=== PATIENT | male | born 1935 | race Caucasian/White ===

== ENCOUNTER 2016-08-15 04:05 | Inpatient (IN) | payer MEDICARE ==
[2016-08-15] MEDS ORDERED: Labetalol IV* 5 MG/ML 20 ML VIAL ONE (04:26)
[2016-08-15] MEDS ORDERED: Labetalol IV* 5 MG/ML 20 ML VIAL IV PUSH ONE (04:29)
[2016-08-15 04:30] LABS: Hematocrit 37 % (42-52); Hemoglobin 12.2 g/dl (14.0-18.0); Mean Corpuscular HGB Conc 33 g/dl (31-36); Mean Corpuscular Hemoglobin 27 pg (27-31); Mean Corpuscular Volume 82 fL (80-94); Mean Platelet Volume 7 um3 (7.4-10.4); Red Blood Count 4.45 10^6/ul (4.0-5.4); Red Cell Distribution Width 16 % (10.5-15); White Blood Count 14.5 10^3/ul (3.5-10.8)
[2016-08-15] MEDS ORDERED: Phytonadione INJ (Adult)* 10 MG/ML 1 ML AMP IV ONE (04:42)
[2016-08-15 04:43] LABS: Albumin 3.3 g/dL (3.2-5.2); BUN/Creatinine Ratio 13.8 (8-20); Calcium 9.4 mg/dL (8.6-10.3); EGFR Non-African American 44.3 (>60); Globulin 3.8 g/dL (2-4); HDL Cholesterol 31.2 mg/dL; Potassium 3.6 mmol/L (3.5-5.0); Total Bilirubin 0.5 mg/dL (0.2-1.0); Total Protein 7.1 g/dL (6.4-8.9)
--- NOTE | 2016-08-15 04:46 | ED ---
Jeff Moe Benjamin, scribed for Ron Keith MD on 08/15/16 at 0442 . Neurological HPI - HPI Summary HPI Summary: 81yo male BIB EMS for a stroke attack. Per , pt went to bed normal, but woke up middle of the night rattling, vomiting, and thrashing. called EMS and pt was brought in unresponsive. LEVEL 5 CAVEAT. - History of Current Complaint Time Seen by Provider: 08/15/16 04:07 Hx Obtained From: Family/Traffic Engineer, EMS Hx From Patient Unobtainable Due To: Other - LEVEL 5 CAVEAT Onset/Duration: Sudden Onset, Started hours ago, Still Present Timing: Constant Onset Severity: Severe Current Severity: Severe - Additional Pertinent History Primary Care Physician: PEDRO - Allergy/Home Medications Allergies/Adverse Reactions: Allergies Allergy/AdvReac Type Severity Reaction Status Date / Time Nitrofurantoin Allergy Unknown Verified 08/15/16 05:26 Reaction Details Penicillins Allergy Hives Verified 08/15/16 05:26 Sulfa Antibiotics Allergy Rash And Verified 08/15/16 05:26 Itching PMH/Surg Hx/FS Hx/Imm Hx Endocrine/Hematology History: Reports: Hx Anticoagulant Therapy - warfarin, Hx Diabetes Cardiovascular History: Reports: Hx Coronary Artery Disease, Hx Hypercholesterolemia, Hx Hypertension, Other Cardiovascular Problems/Disorders - "leaky valve" Denies: Hx Pacemaker/ICD Respiratory History: Reports: Hx Asthma, Hx Chronic Obstructive Pulmonary Disease (COPD), Hx Sleep Apnea - Uses C-Pap at home GI History: Reports: Hx Diverticulosis, Other GI Disorders - elective colectomy with resection History: Reports: Hx Benign Prostatic Hyperplasia, Hx Chronic Renal Failure, Other Problems/Disorders - chronic UTI, penile stricture Musculoskeletal History: Reports: Hx Arthritis Sensory History: Reports: Hx Contacts or Glasses Denies: Hx Hearing Aid Opthamlomology History: Reports: Hx Contacts or Glasses Neurological History: Reports: Other Neuro Impairments/Disorders - Tremors, neuropathy Psychiatric History: Reports: Hx Depression Denies: Hx Panic Disorder - Surgical History Surgery Procedure, Year, and Place: cataract removal 2011, open lapararomy resection sigmoid/descending colon 2011, Hx Anesthesia Reactions: No - Immunization History Date of Tetanus Vaccine: up to date Date of Influenza Vaccine: 2014 Infectious Disease History: Denies: Traveled Outside the [place] in Last 30 Days - Social History Alcohol Use: None Hx Substance Use: No Substance Use Type: Reports: None Smoking Status (MU): Never Smoked Tobacco Review of Systems - ROS Summary Review of Systems Summary: level 5 caveat All Other Systems Reviewed And Are Negative: Yes Physical Exam Triage Information Reviewed: Yes Vital Signs On Initial Exam: Initial Vitals Pulse Ox 100 08/15/16 04:21 Vital Signs Reviewed: Yes Completion Of Physical Exam Limited Due To: Extremis Appearance: Positive: Ill-Appearing Skin: Positive: Warm Head/Face: Positive: Normal Head/Face Inspection Eyes: Positive: Other: - rt gaze ENT: Positive: Pharynx normal Respiratory/Lung Sounds: Positive: Breath Sounds Present Cardiovascular: Positive: RRR Abdomen Description: Positive: Soft Neurological: Positive: Focal Deficit @ - lt side, Unable to Assess Gait AVPU Assessment: Unconscious Diagnostics - Vital Signs Vital Signs Pulse Ox 08/15/16 04:21 100 - Laboratory Lab Results: Lab Results 08/15/16 08/15/16 08/15/16 Range/Units 04:10 04:10 04:10 INR (Anticoag Therapy) 2.77 H (0.89-1.11) APTT 52.2 H (26.0-36.3) seconds Sodium 129 L (133-145) mmol/L Potassium 3.6 (3.5-5.0) mmol/L Chloride 95 L (101-111) mmol/L Carbon Dioxide 25 (22-32) mmol/L Anion Gap 9 (2-11) mmol/L BUN 21 (6-24) mg/dL Creatinine 1.52 H (0.67-1.17) mg/dL Est GFR ( Amer) 57.0 (>60) Est GFR (Non-Af Amer) 44.3 (>60) BUN/Creatinine Ratio 13.8 (8-20) Glucose 216 H (70-100) mg/dL Lactic Acid 1.7 (0.5-2.0) mmol/L Calcium 9.4 (8.6-10.3) mg/dL Total Bilirubin 0.50 (0.2-1.0) mg/dL AST 16 (13-39) U/L ALT 10 (7-52) U/L Alkaline Phosphatase 117 H (34-104) U/L Troponin I Pending Total Protein 7.1 (6.4-8.9) g/dL Albumin 3.3 (3.2-5.2) g/dL Globulin 3.8 (2-4) g/dL Albumin/Globulin Ratio 0.9 L (1-3) Triglycerides 164 mg/dL Cholesterol 188 mg/dL LDL Cholesterol 124 mg/dL HDL Cholesterol 31.2 mg/dL Result Diagrams: 08/15/16 04:10 08/15/16 04:10 Lab Statement: Any lab studies that have been ordered have been reviewed, and results considered in the medical decision making process. - CT CT Brain CT Interpretation: Positive (See Comments) - hemorrhage CT Interpretation Completed By: Radiologist - EKG 0414. 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 Non-Paretic Hand: Neither Correctly Best Gaze (Only Horizontal Eye Movement): Partial Gaze Palsy Visual Field Testing: Bilateral Hemianopia Facial Paresis-Pt to Smile & Close Eyes or Grimace Symmetry: Partial Paralysis Motor Function - Right Arm: Drifts LT 10 seconds Motor Function - Left Arm: No Movement Motor Function - Right Leg: Drifts LT 10 seconds Motor Function - Left Leg: No Effort Against [place] Limb Ataxia-Must be out of Proportion to Weakness Present: Present in Two Limbs Sensory (Use Pinprick to Test Arms/Legs/Trunk/Face): Severe to Total Loss Best Language (Describe Picture, Name Items): Mute/Global Aphasia Dysarthria (Read Several Words): Unintelligible or Mute Extinction and Inattention: Profound Kalen-Inattention Total Score: 32 Course/Dx - Diagnoses Provider Diagnoses: Intracerebral bleed - Physician Notifications Discussed Care of Patient With: with Dr. Ventura (Neurosurgery) @[phone]. Audrey wants the pt admitted to ICU, he will come in to see the pt in the morning. Instructed by Provider To: Admit As Inpatient - Critical Care Time Critical Care Time: 75-104 min Discharge - Discharge Plan Condition: Critical Disposition: ADMITTED TO [facility] The documentation as recorded by the Jeff babb Benjamin accurately reflects the service I personally performed and the decisions made by me, Ron Keith MD.
[2016-08-15 04:53] LABS: Troponin I 0.04 ng/mL (<0.04)
[2016-08-15] MEDS ORDERED: Ondansetron INJ* 2 MG/ML VIAL ONE (05:28)
--- NOTE | 2016-08-15 05:38 | HP ---
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 He was last seen by his normal before bed only to awake around 0330 thrashing, vomiting, & confused. She called EMS and he was brought in where CT shows a 3.5cm R frontal intracranial hemorrhage. INR is 2.7. He is unable to swallow and has been given 10mg IV vitamin K and 2 units FFP ordered. Maurice Ventura MD neurosurgery has been consulted and will evaluate in the AM. I have had a anali discussion with his and 2 sons informing them that given his substantial co-morbidities, he is unlikely to survive this insult. If he would survive, he is unlikely to be able to return home (probably will require long-term NH care), may need a feeding tube, and cognition/ communication is uncertain. Given this information, his sons did not feel he would want aggressive measures such as CPR, cardioversion, or intubation and his agreed. PMedHx L CVA 09/2015 TIA CAD carotid stenosis AFIB on warfarin DM2 w/ polyneuropathy CKD stg 3 HTN HLD ELISABETH BPH urinary retention w/ indwelling downey which he recently self-DC'd spinal stenosis Allergies Nitrofurantoin Allergy (Verified 08/15/16 05:26) Unknown Reaction Details Penicillins Allergy (Verified 08/15/16 05:26) Hives Sulfa Antibiotics Allergy (Verified 08/15/16 05:26) Rash And Itching Ambulatory Orders Acetaminophen PED LIQ* [Tylenol PED LIQ UDC*] 160 mg PO Q8H PRN 01/23/15 Allopurinol TAB* [Zyloprim TAB*] 100 mg PO DAILY 01/23/15 Nystatin (Topical) [Nystatin] 100,000 unit TOPICAL TID PRN 01/23/15 zzInsulin GLARGINE(*) [zzLantus(*)] 30 unit SUBCUT BID 01/23/15 Albuterol HFA INHALER* [Ventolin HFA Inhaler*] 2 puff INH TID PRN 04/18/16 Aspirin EC Low Dose* [Ecotrin EC Low Dose*] 81 mg PO DAILY 04/18/16 Bumetanide TAB* [Bumex TAB*] 1 mg PO QAM 04/18/16 Cranberry (Vaccinium Macrocarp [Cranberry Concentrate] 500 mg PO DAILY 04/18/16 Docusate CAP* [Colace Cap*] 100 mg PO BID 04/18/16 FLUoxetine CAP* [Prozac CAP*] 20 mg PO DAILY 04/18/16 Ferrous Sulfate TAB* 325 mg PO DAILY WITH MEAL 04/18/16 Hydrocodone-Acetaminophen [Hydrocodone/Acetaminophen] 1 tab PO Q6HR PRN Insulin REGULAR(*) 0 - 35 units SUBCUT TID AC 04/18/16 Losartan TAB* [Cozaar TAB*] 50 mg PO DAILY 04/18/16 Oxybutynin Chloride [Oxybutynin Chloride ER] 10 mg PO BEDTIME 04/18/16 Polyethylene Glycol 3350* [Miralax*] 8.5 gm PO DAILY 04/18/16 Potassium Chloride [Potassium Chloride ER] 10 meq PO BID WITH MEALS 04/18/16 Ranitidine TAB (NF) [Zantac TAB (NF)] 75 mg PO BID 04/18/16 Warfarin TAB(*) [Coumadin TAB(*)] 5 mg PO EVERY OTHER DAY 04/18/16 Warfarin TAB(*) [Coumadin TAB(*)] 7.5 mg PO EVERY OTHER DAY 04/18/16 DOXYcycline CAP(*) [DOXYcycline 100MG CAP(*)] 100 mg PO DAILY cap 04/20/16 SocHx: no tobacco, alcohol, or recreational drugs; lives with his , has 5 children; DNR/I code status, MOLST filled out FamHx: positive for DM, HTN, HLD ROS: as above, otherwise reviewed and all were negative Constitutional: NAD, normally developed, obese white male vitals: Vital Signs Temp 37.4 C 08/15/16 04:05 Pulse 72 08/15/16 06:00 Resp 22 08/15/16 06:00 BP 153/105 08/15/16 06:00 Pulse Ox 100 08/15/16 06:00 Intake & Output 08/14/16 08/14/16 08/15/16 11:59 23:59 11:59 Intake Total 8 Balance 8 Weight 113.398 kg Intake: IV Fluids 8 HEENM: atraumatic; sclera/conjunctiva: non-icteric/moderately injected; hearing : clinically intact (said 'yes' when his said his name); oropharynx: clear , mucosa moist Neck: soft tissue: non-tender; thyroid: normal Pulmonary: R basal coarse crackle, good aeration, no accessory muscle use CV: IR/IR, normal S1S2, no carotid bruit, no jugular venous distention, 2+ B DP/ PT, no edema Abdominal: soft, non-distended, non-tender, no rebound/guarding/rigidity, normoactive bowel sounds, no hepatosplenomegaly or masses, no costovertebral angle tenderness Musculoskeletal: general: flaccid LUE; gait: currently unable to ambulate Integumental: normal appearance and texture Neurological cranial nerves II: unable to assess visual molina III/IV/: symmetric light reflex, rightward gaze w/ L neglect, PERRLA V: intact corneal reflex VII: facial symmetry, eye clench VIII: hearing clinically intact IX/X: unable to assess palatal motion, intact gag reflex, no dysarthria XI: unable to assess shoulder shrug XII: unable to assess tongue protrusion or voice articulation motor LUE: flaccid RUE: 4+/5 proximally, 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, & 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 strength LLE: 3+/5 proximally & distally RLE: 4/5 proximally & distally coordination finger/nose: unable to assess heal/guzman: unable to assess dysdiadochokinesia: unable to assess sensory crude touch: unable to assess pinprick: unable to assess proprioception: unable to assess Psychiatric orientation: oriented loosely to person only affect: flat, rightward gaze mood: acquiescent eye contact: absent content: absent memory: unable to assess responses: mildly agitated insight: poor to absent Testing: Lab Results 08/15/16 08/15/16 08/15/16 Range/Units 04:10 04:10 04:10 WBC 14.5 H (3.5-10.8) 10^3/ul RBC 4.45 (4.0-5.4) 10^6/ul Hgb 12.2 L (14.0-18.0) g/dl Hct 37 L (42-52) % MCV 82 (80-94) fL MCH 27 (27-31) pg MCHC 33 (31-36) g/dl RDW 16 H (10.5-15) % Plt Count 244 (150-450) 10^3/ul MPV 7 L (7.4-10.4) um3 Neut % (Auto) 85.6 H (38-83) % Lymph % (Auto) 8.2 L (25-47) % George % (Auto) 3.5 (1-9) % Eos % (Auto) 2.3 (0-6) % Baso % (Auto) 0.4 (0-2) % Absolute Neuts (auto) 12.4 H (1.5-7.7) 10^3/ul Absolute Lymphs (auto) 1.2 (1.0-4.8) 10^3/ul Absolute Monos (auto) 0.5 (0-0.8) 10^3/ul Absolute Eos (auto) 0.3 (0-0.6) 10^3/ul Absolute Basos (auto) 0.1 (0-0.2) 10^3/ul Absolute Nucleated RBC 0 10^3/ul Nucleated RBC % 0 INR (Anticoag Therapy) 2.77 H (0.89-1.11) APTT 52.2 H (26.0-36.3) seconds Sodium 129 L (133-145) mmol/L Potassium 3.6 (3.5-5.0) mmol/L Chloride 95 L (101-111) mmol/L Carbon Dioxide 25 (22-32) mmol/L Anion Gap 9 (2-11) mmol/L BUN 21 (6-24) mg/dL Creatinine 1.52 H (0.67-1.17) mg/dL Est GFR ( Amer) 57.0 (>60) Est GFR (Non-Af Amer) 44.3 (>60) BUN/Creatinine Ratio 13.8 (8-20) Glucose 216 H (70-100) mg/dL Lactic Acid (0.5-2.0) mmol/L Calcium 9.4 (8.6-10.3) mg/dL Total Bilirubin 0.50 (0.2-1.0) mg/dL AST 16 (13-39) U/L ALT 10 (7-52) U/L Alkaline Phosphatase 117 H (34-104) U/L Troponin I 0.04 H* (<0.04) ng/mL Total Protein 7.1 (6.4-8.9) g/dL Albumin 3.3 (3.2-5.2) g/dL Globulin 3.8 (2-4) g/dL Albumin/Globulin Ratio 0.9 L (1-3) Triglycerides 164 mg/dL Cholesterol 188 mg/dL LDL Cholesterol 124 mg/dL HDL Cholesterol 31.2 mg/dL Blood Type 08/15/16 08/15/16 Range/Units 04:10 04:10 WBC (3.5-10.8) 10^3/ul RBC (4.0-5.4) 10^6/ul Hgb (14.0-18.0) g/dl Hct (42-52) % MCV (80-94) fL MCH (27-31) pg MCHC (31-36) g/dl RDW (10.5-15) % Plt Count (150-450) 10^3/ul MPV (7.4-10.4) um3 Neut % (Auto) (38-83) % Lymph % (Auto) (25-47) % George % (Auto) (1-9) % Eos % (Auto) (0-6) % Baso % (Auto) (0-2) % Absolute Neuts (auto) (1.5-7.7) 10^3/ul Absolute Lymphs (auto) (1.0-4.8) 10^3/ul Absolute Monos (auto) (0-0.8) 10^3/ul Absolute Eos (auto) (0-0.6) 10^3/ul Absolute Basos (auto) (0-0.2) 10^3/ul Absolute Nucleated RBC 10^3/ul Nucleated RBC % INR (Anticoag Therapy) (0.89-1.11) APTT (26.0-36.3) seconds Sodium (133-145) mmol/L Potassium (3.5-5.0) mmol/L Chloride (101-111) mmol/L Carbon Dioxide (22-32) mmol/L Anion Gap (2-11) mmol/L BUN (6-24) mg/dL Creatinine (0.67-1.17) mg/dL Est GFR ( Amer) (>60) Est GFR (Non-Af Amer) (>60) BUN/Creatinine Ratio (8-20) Glucose (70-100) mg/dL Lactic Acid 1.7 (0.5-2.0) mmol/L Calcium (8.6-10.3) mg/dL Total Bilirubin (0.2-1.0) mg/dL AST (13-39) U/L ALT (7-52) U/L Alkaline Phosphatase (34-104) U/L Troponin I (<0.04) ng/mL Total Protein (6.4-8.9) g/dL Albumin (3.2-5.2) g/dL Globulin (2-4) g/dL Albumin/Globulin Ratio (1-3) Triglycerides mg/dL Cholesterol mg/dL LDL Cholesterol mg/dL HDL Cholesterol mg/dL Blood Type A Negative ECG, personally reviewed: AFIB rate 91, no ischemia, frequent PVCs CXR, personally reviewed: RLL infiltrate Impression: 81M presenting with acute R frontal ICH & aspiration pneumonia DIAGNOSIS & PLAN Primary R frontal ICH : DNR/I, MOLST filled out : supplemental oxygen : reverse warfarin & trend INR : IVFs : Maurice Ventura MD neurosurgery : NPO : PT/OT/ST evaluations : check lipids : prognosis poor : supportive care aspiration pneumonia : PCN allergic : avoid levofloxacin as it will potentiate the remaining warfarin in his system : clindamycin 600mg IV Q8H : blood & sputum CXs Secondary CAD : hold aspirin AFIB : rate control : reverse warfarin DM2 w/ polyneuropathy : basal/correctional protocol : NPO : check A1c CKD stg 3 : monitor HTN : permissive HTN up to 175 systolic BPH w/ urinary retention w/ indwelling downey which he recently self-DC'd : downey to gravity Admission Rational: inpatient for ICU management of ICH in patient at high risk of mortality DVTp: SCDs, no anticoagulation in ICH Code Status: DNR/I, MOLST filled out HCP:
[2016-08-15] MEDS ORDERED: Nystatin OINT* 15 GM TOPICAL PRN (06:23)
[2016-08-15] MEDS ORDERED: PROCHLORPERAZINE INJ 5 MG/ML 2 ML VIAL IV PRN (06:24)
[2016-08-15] MEDS ORDERED: Ondansetron INJ* 2 MG/ML VIAL IV PRN (06:24)
[2016-08-15] MEDS ORDERED: Albuterol 2.5 MG/3 ML NEB.SOL* (0.083%) INH PRN (06:24)
--- NOTE | 2016-08-15 07:54 | RAD ---
INDICATION: Shortness of breath code daniel. COMPARISON: There are no prior studies available for comparison. TECHNIQUE: A portable view of the chest was obtained. FINDINGS: The patient is rotated toward the right side. The heart is within normal limits in size. The lungs are underinflated. There are small infiltrates at both lung bases. No pleural effusion is seen. IMPRESSION: EXPIRATORY EXAM, SMALL BIBASILAR CONTRAST.
--- NOTE | 2016-08-15 07:58 | RAD ---
INDICATION: Code daniel. Change in neurologic status. COMPARISON: None TECHNIQUE: Noncontrast axial source images were acquired from the skull base to the vertex. FINDINGS: Ventricles/sulci: There is cortical atrophy with compensatory dilatation of the CSF spaces. Brain parenchyma: There is a large focus of intracranial hemorrhage in the right frontal lobe measuring 3.5 cm and associated with a small amount of vasogenic edema and minor mass effect. The basilar cisterns are widely patent There are chronic microvascular ischemic changes as well. Intracranial hemorrhage: Intra-axial hemorrhage as noted above. Extra-axial spaces: There are no abnormal extra axial fluid collections or evidence of extra-axial mass. Calvarium: There is no calvarial fracture or other calvarial abnormality. Scalp: There is no evidence of scalp or extracalvarial soft tissue abnormality. Paranasal sinuses/mastoid: The paranasal sinuses and mastoid air cells are clear. Other: None. IMPRESSION: Right frontal intra-axial hemorrhage. Imaging regional engagement consultant has discussed these findings with the ER physician
[2016-08-15] MEDS: Clindamycin 600 MG IVPREMIX(* 600 MG/50 ML SDV IV SCH ×2 (08:11→14:24)
[2016-08-15] MEDS: Insulin LISPRO* 1 UNITS UNIT SUBCUT SCH ×5 (08:26→23:17)
[2016-08-15] MEDS: Pantoprazole IV* 40 MG IV SCH (08:27)
[2016-08-15 10:58] LABS: Troponin I 0.11 ng/mL (<0.04)
[2016-08-15 11:01] LABS: Potassium 4.2 mmol/L (3.5-5.0)
--- NOTE | 2016-08-15 13:13 | CONSULT ---
Consult Consult: Neurosurgery Consult Date of consult: 08/16/16 Reason for consult: Intracerebral hemorrhage HPI: This is an 81 year old male with past medical history significant for CVA, atrial fibrillation on warfarin, HTN, and type 2 diabetes who presented to the [facility] ER where a CT brain was obtained, showing a right intracerebral hemorrhage. He is unable to communicate verbally, unable to answer questions and does not follow commands. Past medical history: 1. CAD 2. HTN 3. HLD 4. Atrial fibrillation on warfarin 5. History of left CVA 2015 6. Type 2 Diabetes 7. CKD stage 3 8. ELISABETH 9. BPH Allergies: 1. Nitrofurantoin 2. Penicillins 3. Sulfa antibiotics Home Medications: 1. Acetaminophen PED LIQ* [Tylenol PED LIQ UDC*] 160 mg PO Q8H PRN 01/23/15 [ History Confirmed 08/15/16] 2. Allopurinol TAB* [Zyloprim TAB*] 100 mg PO DAILY 01/23/15 [History Confirmed 08/15/16] 3. Nystatin (Topical) [Nystatin] 100,000 unit TOPICAL TID PRN 01/23/15 [History Confirmed 08/15/16] 4. zzInsulin GLARGINE(*) [zzLantus(*)] 30 unit SUBCUT BID 01/23/15 [History Confirmed 08/15/16] 5. Albuterol HFA INHALER* [Ventolin HFA Inhaler*] 2 puff INH TID PRN 04/18/16 [ History Confirmed 08/15/16] 6. Aspirin EC Low Dose* [Ecotrin EC Low Dose*] 81 mg PO DAILY 04/18/16 [History Confirmed 08/15/16] 7. Bumetanide TAB* [Bumex TAB*] 1 mg PO QAM 04/18/16 [History Confirmed 08/15/16 ] 8. Cranberry (Vaccinium Macrocarp [Cranberry Concentrate] 500 mg PO DAILY [History Confirmed 08/15/16] 9. Docusate CAP* [Colace Cap*] 100 mg PO BID 04/18/16 [History Confirmed ] 10. FLUoxetine CAP* [Prozac CAP*] 20 mg PO DAILY 04/18/16 [History Confirmed 08/02] 11. Ferrous Sulfate TAB* 325 mg PO DAILY WITH MEAL 04/18/16 [History Confirmed 08/15/16] 12. Hydrocodone-Acetaminophen [Hydrocodone/Acetaminophen] 1 tab PO Q6HR PRN 08/29 [History Confirmed 08/15/16] 13. Insulin REGULAR(*) 0 - 35 units SUBCUT TID AC 04/18/16 [History Confirmed ] 14. Losartan TAB* [Cozaar TAB*] 50 mg PO DAILY 04/18/16 [History Confirmed 08/15] 15. Oxybutynin Chloride [Oxybutynin Chloride ER] 10 mg PO BEDTIME 04/18/16 [ History Confirmed 08/15/16] 16. Polyethylene Glycol 3350* [Miralax*] 8.5 gm PO DAILY 04/18/16 [History Confirmed 08/15/16] 17. Potassium Chloride [Potassium Chloride ER] 10 meq PO BID WITH MEALS [History Confirmed 08/15/16] 18. Ranitidine TAB (NF) [Zantac TAB (NF)] 75 mg PO BID 04/18/16 [History Confirmed 08/15/16] 19. Warfarin TAB(*) [Coumadin TAB(*)] 5 mg PO EVERY OTHER DAY 04/18/16 [History Confirmed 08/15/16] 20. Warfarin TAB(*) [Coumadin TAB(*)] 7.5 mg PO EVERY OTHER DAY 04/18/16 [ History Confirmed 08/15/16] 21. DOXYcycline CAP(*) [DOXYcycline 100MG CAP(*)] 100 mg PO DAILY cap 04/20/16 [Rx Confirmed 08/15/16] ROS: Unable to obtain secondary to cognitive function. Physical Exam: Vital Signs: Temp Pulse Resp BP Pulse Ox 100.7 F 74 20 131/98 97 08/15/16 11:44 08/15/16 12:14 08/15/16 12:14 08/15/16 12:14 08/15/16 12:14 General: Laying in bed comfortably, no distress. HEENT: Head is normocephalic and atraumatic. Sclerae are anicteric. Unable to assess EOM. Gross hearing intact; opens eyes to voice. Nares patent. Moist mucus membranes. Neck: Supple, symmetric. CV: Radial pulses equal. Lungs: Breathing is nonlabored. Oxygen in place. Abdomen: NABS. Soft, nontender and nondistended. Neuro: Patient is unable to communicate verbally. PERRL, unable to assess additional cranial nerves. Patient does not follow commands; unable to assess strength and sensation. Pulls away from painful stimuli. Imagin. CT brain 08/15/16 shows right intracerebral hemorrhage. Impression: Right ICH in a poorly functioning 81 year old male with multiple comorbidities including atrial fibrillation on warfarin. Plan: 1. No recommendation for surgery. 2. DNR/I
[2016-08-15 15:21] LABS: Urine Bacteria 1+ (Absent); Urine Bilirubin Negative (Negative); Urine Glucose 2+(150 mg/dL) (Negative); Urine Nitrite Positive (Negative)
[2016-08-15] MEDS: NS 0.9% 1000 ML* 1,000 ML IV SCH (16:55)
--- NOTE | 2016-08-15 17:39 | RAD ---
Indication: Intracranial hemorrhage RIGHT frontal lobe. Assess for worsening of bleed. Comparison: [address] exam of the same date. April 18, 2016 CT and MRI. Technique: Noncontrast CT vertex of skull through foramen magnum. Report: 3.4 cm AP by 3.4 cm transverse sharply circumscribed hyperdense intra-axial hematoma at the RIGHT frontal lobe at the level of the hester radiata with associated regional sulcal effacement and mild mass effect on the RIGHT lateral ventricle and up to 4 mm leftward midline shift at the level of the septum pellucidum. Mild surrounding cytotoxic edema. No additional intra-axial or extra-axial hemorrhage evident. The basal cisterns remain patent. Generalized moderately severe prominence of the cerebral sulci reflecting atrophy. Decreased density in the periventricular and subcortical white matter while non-specific is most likely due to chronic microangiopathy. Unremarkable orbital contents. Negative for fracture or suspicious lesion of the calvarium or skull base. Clear paranasal sinuses and mastoid air spaces. Negative for scalp hematoma. IMPRESSION: Solitary 3.4 cm diameter acute or subacute intra-axial hemorrhage at the RIGHT frontal lobe is without significant change compared with the 0418 hours exam of the same date. No underlying lesion evident on the April 18, 2016 CT or MRI brain exams. Consider hypertension or amyloid angiopathy as probable etiologies for the hemorrhage. Involutional change mitigating mass effect from the intra-axial hemorrhage with only mild regional sulcal effacement as well as 4 mm leftward midline shift at the level of the septum pellucidum. Negative for downward herniation. Results discussed with Dr. Lin 08/15/2016 5:36 PM EST
[2016-08-15] MEDS: cefTRIAXone VIAL(*) 1,000 MG in NS 0.9% 50 ML* 50 ML IVPB SCH (18:08)
--- NOTE | 2016-08-15 20:28 | CONS ---
PALLIATIVE CARE CONSULTATION: DATE OF CONSULT: 08/15/16 PRIMARY CARE PHYSICIAN: Nam Houser MD. REQUESTING PHYSICIAN FOR CONSULTATION: Diane Lin DO. 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 The patient was found by his who provides the history around 3:30 in the morning, thrashing with vomiting. EMS was called. The patient was brought to the emergency room and was found to have a 3.5-cm right frontal intracranial hemorrhage with an INR of 2.7. The patient was given IV vitamin K and 2 units of FFP. Neurosurgery was consulted and is going to evaluate in the morning. The states that she has been taking care of him for the past 5 to 6 years. He has been nonambulatory for the past month. He is also with an indwelling Payton and has had multiple comorbidities. She has had aide services at home, but is the primary caregiver. She states that he would not want to be hooked up to any machine, as he would not want to be a vegetable. He was very clear with his advanced care planning to her. At this time, his MOLST form is a DNR/DNI. The patient is minimally responsive, does attempt to open eyes. According to the nurse earlier, he seemed to have mucus plugged, was able to cough it and clear it. His vitals seemed to improve after that. He opened his eyes, but really no other spontaneous movement since then. Unable to obtain review of systems. PAST MEDICAL HISTORY: 1. History of left CVA in September 2015 and a history of TIA. 2. Coronary artery disease. 3. Carotid stenosis. 4. Atrial fibrillation, on Coumadin. 5. Diabetes with polyneuropathy. 6. History of CKD stage 3. 7. Hypertension. 8. Hyperlipidemia. 9. Obstructive sleep apnea. 10. BPH. 11. Urinary retention with an indwelling Payton. 12. Spinal stenosis. INPATIENT MEDICATIONS: 1. Insulin lispro sliding scale. 2. Lantus 27 units at bedtime. 3. Clindamycin 600 mg every 6 hours. 4. Albuterol 2.5 every 2 hours as needed. 5. Tylenol suppository 650 every 6 hours as needed. 6. Normal saline IV fluids 100 cc an hour. 7. Zofran 4 mg every 6 hours as needed. 8. Pantoprazole 40 mg IV daily. 9. Compazine 10 mg every 6 hours as needed. ALLERGIES: NITROFURANTOIN, PENICILLIN and SULFA. FAMILY HISTORY: Reviewed and noncontributory. SOCIAL HISTORY: The patient as mentioned was living at home noncontributory. His is his primary caregiver with a Annie lift. She did have aides and VNS services coming into the house. No history of tobacco, alcohol, or illicit drug use. The is the healthcare proxy, has 5 children. MOLST as mentioned is DNR/DNI. REVIEW OF SYSTEMS: Unable to obtain due to the patient's altered mental status. PHYSICAL EXAM: Vitals: T-max 100.1, pulse 71, respiratory rate 21, oxygen saturation 99% on room air, blood pressure 128/51. General: No acute distress , minimally arousable. at the bedside. HEENT: Oropharynx: Mucous membranes dry. Pupils are equal and reactive. Neck: Supple. No lymphadenopathy. Cardiac: Irregularly irregular rate and rhythm. Soft systolic murmur heard throughout. Respiratory: Diminished breath sounds. Fine rhonchi bilaterally. Abdomen is soft, nontender. Extremities: The patient with intermittent tremulous activity of his right upper and right lower extremities. No spontaneous movements. Unable to open his eyes or follow any commands. Extremities: No clubbing, cyanosis, or edema. DIAGNOSTIC STUDIES/LAB DATA: White count 14.5, hemoglobin 12.2, hematocrit 37, platelets 244. INR is 1.53. Sodium 131, potassium 4.2, chloride 95, bicarb 26 , BUN 21, creatinine 1.52. Troponin 0.13. Radiographic data: Head CT shows right intracerebral hemorrhage. ASSESSMENT: This is an 81-year-old male with multiple comorbidities who presented to the emergency room this morning with unresponsive episode with nausea and vomiting, found to have an intracranial hemorrhage, continues to be unresponsive. It seems clear that the patient did express to his his wishes , he has been for over 50 years, that he did not want to be hooked to any tubes, that he wants to maintain his quality of life and if he could not, he did not want any life- sustaining measures, which in my opinion, includes a feeding tube and the agrees that was not something he would want. The concern is that the children want more invasive measures. I am not able to meet with the children at this time as they are not here. I am happy to have the family meet and discuss prognosis with him and that artificial nutrition would be an extraordinary burden for him. It would not improve his quality of life or reverse his underlying condition and per the , this is not something that he would want. The patient is eligible for hospice with a limited life expectancy with a terminal diagnosis of a intracranial hemorrhage. Thank you for this consultation. I will follow along with you. PATIENT TIME: Greater than 60 minutes spent doing the consultation, more than half the time spent in direct patient contact. CC: Nam Houser MD* [id number]/CPS #: [id number] MTDD
[2016-08-15] MEDS ORDERED: Insulin GLARGINE(*) 1 UNITS UNIT SUBCUT SCH (21:00)
[2016-08-15] MEDS: Acetaminophen SUPP* 650 MG SUPP PR PRN (23:10)
[2016-08-16] MEDS: Insulin LISPRO* 1 UNITS UNIT SUBCUT SCH ×6 (03:49→23:59)
[2016-08-16] MEDS: NS 0.9% 1000 ML* 1,000 ML IV SCH ×2 (03:50→15:36)
[2016-08-16 06:14] LABS: Hematocrit 29 % (42-52); Hemoglobin 9.6 g/dl (14.0-18.0); Mean Corpuscular HGB Conc 33 g/dl (31-36); Mean Corpuscular Hemoglobin 28 pg (27-31); Mean Corpuscular Volume 83 fL (80-94); Mean Platelet Volume 7 um3 (7.4-10.4); Red Blood Count 3.51 10^6/ul (4.0-5.4); Red Cell Distribution Width 16 % (10.5-15); White Blood Count 11.6 10^3/ul (3.5-10.8)
[2016-08-16 06:29] LABS: BUN/Creatinine Ratio 14.9 (8-20); Calcium 8.5 mg/dL (8.6-10.3); EGFR African American 41.3 (>60); EGFR Non-African American 32.1 (>60); Potassium 3.9 mmol/L (3.5-5.0)
[2016-08-16 07:21] LABS: Troponin I 0.09 ng/mL (<0.04)
[2016-08-16] MEDS: hydrALAZINE IV* 20 MG/ML VIAL IV SLOW PU PRN (09:44)
[2016-08-16] MEDS: Pantoprazole IV* 40 MG IV SCH (09:45)
--- NOTE | 2016-08-16 12:58 | PN ---
Subjective Date of Service: 08/15/16 Interval History: THIS IS A LATE ENTRY: Pt is non-verbal. Objective Active Medications: Acetaminophen (Tylenol Supp*) 650 mg NM Q6H PRN PRN Reason: FEVER/PAIN Last Admin: 08/15/16 23:10 Dose: 650 mg Albuterol (Ventolin 2.5 Mg/3 Ml Neb.Shelia*) 2.5 mg INH Q2H PRN PRN Reason: SOB/WHEEZING Hydralazine HCl (Apresoline Iv*) 5 mg IV SLOW PU Q6H PRN PRN Reason: SBP >160 Last Admin: 08/16/16 09:44 Dose: 5 mg Sodium Chloride (Ns 0.9% 1000 Ml*) 1,000 mls @ 100 mls/hr IV PER RATE [facility] Last Admin: 08/16/16 03:50 Dose: 100 mls/hr Ceftriaxone Sodium 1,000 mg/ (Sodium Chloride) 50 mls @ 200 mls/hr IVPB Q24H [facility] Last Admin: 08/15/16 18:08 Dose: 200 mls/hr Insulin Glargine (Lantus(*)) 27 units SUBCUT 2100 [facility] Insulin Human Lispro (Humalog*) 0 units SUBCUT Q4H [facility] PRN Reason: Protocol Last Admin: 08/16/16 12:21 Dose: Not Given Nystatin (Nystatin Oint*) 1 applic TOPICAL TID PRN PRN Reason: RASH Ondansetron HCl (Zofran Inj*) 4 mg IV Q6H PRN PRN Reason: NAUSEA Pantoprazole Sodium (Protonix Iv*) 40 mg IV DAILY [facility] Last Admin: 08/16/16 09:45 Dose: 40 mg Prochlorperazine Edisylate (Compazine Inj*) 10 mg IV Q6H PRN PRN Reason: NAUSEA Vital Signs 08/15/16 08/15/16 08/15/16 13:00 13:09 13:15 Temperature Pulse Rate 71 73 70 Respiratory 22 19 19 Rate Blood Pressure 117/91 (mmHg) O2 Sat by Pulse 100 100 100 Oximetry 08/15/16 08/15/16 08/15/16 13:30 13:45 14:00 Temperature Pulse Rate 71 74 73 Respiratory 20 20 18 Rate Blood Pressure 146/68 161/51 163/80 (mmHg) O2 Sat by Pulse 100 100 100 Oximetry 08/15/16 08/15/16 08/15/16 14:15 14:30 14:45 Temperature Pulse Rate 73 74 Respiratory 17 20 Rate Blood Pressure 168/97 160/116 175/132 (mmHg) O2 Sat by Pulse 98 98 Oximetry 08/15/16 08/15/16 08/15/16 14:47 15:00 15:15 Temperature Pulse Rate 76 75 74 Respiratory 19 19 21 Rate Blood Pressure 145/65 136/58 (mmHg) O2 Sat by Pulse 99 98 98 Oximetry 08/15/16 08/15/16 08/15/16 15:30 15:45 15:52 Temperature Pulse Rate 71 70 Respiratory 22 20 20 Rate Blood Pressure 127/55 127/59 (mmHg) O2 Sat by Pulse 97 98 Oximetry 08/15/16 08/15/16 08/15/16 15:58 16:00 16:15 Temperature 100.1 F Pulse Rate 70 71 72 Respiratory 21 21 22 Rate Blood Pressure 128/51 128/51 134/53 (mmHg) O2 Sat by Pulse 100 99 100 Oximetry 08/15/16 08/15/16 08/15/16 16:30 16:45 17:00 Temperature Pulse Rate 73 71 77 Respiratory 19 21 18 Rate Blood Pressure 146/58 130/71 (mmHg) O2 Sat by Pulse 99 99 99 Oximetry 08/15/16 08/15/16 08/15/16 17:30 17:45 18:00 Temperature Pulse Rate 72 71 75 Respiratory 21 18 21 Rate Blood Pressure 164/64 159/70 160/65 (mmHg) O2 Sat by Pulse 99 99 99 Oximetry 08/15/16 08/15/16 08/15/16 18:15 18:30 18:43 Temperature 100.4 F Pulse Rate 75 74 Respiratory 21 17 Rate Blood Pressure 168/82 171/74 (mmHg) O2 Sat by Pulse 99 99 Oximetry 08/15/16 08/15/16 08/15/16 18:45 19:00 19:15 Temperature Pulse Rate 74 75 75 Respiratory 24 22 22 Rate Blood Pressure 153/63 157/71 154/60 (mmHg) O2 Sat by Pulse 99 98 99 Oximetry 08/15/16 08/15/16 08/15/16 19:30 19:45 20:00 Temperature Pulse Rate 76 77 Respiratory 20 23 Rate Blood Pressure 152/69 161/74 139/78 (mmHg) O2 Sat by Pulse 98 98 Oximetry 08/15/16 08/15/16 08/15/16 20:15 20:30 20:31 Temperature Pulse Rate 78 76 Respiratory 21 22 Rate Blood Pressure 154/87 156/74 (mmHg) O2 Sat by Pulse 98 98 98 Oximetry 08/15/16 08/15/16 08/15/16 20:32 20:45 20:59 Temperature 99.2 F Pulse Rate 65 76 Respiratory 18 Rate Blood Pressure 173/64 (mmHg) O2 Sat by Pulse 98 99 Oximetry 08/15/16 08/15/16 08/15/16 21:00 21:06 21:15 Temperature Pulse Rate 76 76 77 Respiratory 22 22 22 Rate Blood Pressure 161/133 141/78 139/66 (mmHg) O2 Sat by Pulse 99 99 99 Oximetry 08/15/16 08/15/16 08/15/16 21:30 22:00 23:00 Temperature Pulse Rate 78 79 80 Respiratory 22 22 21 Rate Blood Pressure 162/59 165/68 134/57 (mmHg) O2 Sat by Pulse 99 99 98 Oximetry 08/16/16 08/16/16 08/16/16 00:00 00:01 01:00 Temperature 100.1 F Pulse Rate 84 85 77 Respiratory 21 22 21 Rate Blood Pressure 157/66 152/70 (mmHg) O2 Sat by Pulse 99 99 98 Oximetry 08/16/16 08/16/16 08/16/16 02:00 03:00 04:00 Temperature Pulse Rate 75 79 74 Respiratory 20 23 19 Rate Blood Pressure 148/68 148/75 154/54 (mmHg) O2 Sat by Pulse 98 98 96 Oximetry 08/16/16 08/16/16 08/16/16 04:33 05:00 06:00 Temperature 100.7 F Pulse Rate 77 76 Respiratory 19 19 Rate Blood Pressure 145/66 157/72 (mmHg) O2 Sat by Pulse 98 97 Oximetry 08/16/16 08/16/16 08/16/16 07:00 07:20 07:21 Temperature 99.0 F Pulse Rate 72 77 Respiratory 19 19 Rate Blood Pressure 176/61 158/39 (mmHg) O2 Sat by Pulse 97 98 Oximetry 08/16/16 08/16/16 08/16/16 08:00 08:56 10:32 Temperature 98.7 F Pulse Rate 76 74 72 Respiratory 19 18 18 Rate Blood Pressure 119/64 164/86 (mmHg) O2 Sat by Pulse 97 99 98 Oximetry Oxygen Devices in Use Now: Nasal Cannula - 99%-5L Appearance: Elderly male sitting up in bed, eyes closed, opens spontaneously, NAD Eyes: No Scleral Icterus Ears/Nose/Mouth/Throat: Mucous Membranes Moist Respiratory: Symmetrical Chest Expansion and Respiratory Effort, Clear to Auscultation - anteriorly Cardiovascular: NL Sounds; No Murmurs; No JVD, RRR, No Edema Abdominal: NL Sounds; No Tenderness; No Distention Extremities: No Clubbing, Cyanosis Skin: No Rash or Ulcers, No Nodules or Sclerosis Neurological: - - somnolent, opens eyes spontaneously, hold his childrens hand tightly but does not follow any commands Result Diagrams: 08/16/16 05:46 08/16/16 05:46 Additional Lab and Data: Lab Results 08/15/16 08/15/16 08/15/16 Range/Units 04:10 04:10 04:10 INR (Anticoag Therapy) 2.77 H (0.89-1.11) APTT 52.2 H (26.0-36.3) seconds Sodium 129 L (133-145) mmol/L Potassium 3.6 (3.5-5.0) mmol/L Chloride 95 L (101-111) mmol/L Carbon Dioxide 25 (22-32) mmol/L Anion Gap 9 (2-11) mmol/L BUN 21 (6-24) mg/dL Creatinine 1.52 H (0.67-1.17) mg/dL Est GFR ( Amer) 57.0 (>60) Est GFR (Non-Af Amer) 44.3 (>60) BUN/Creatinine Ratio 13.8 (8-20) Glucose 216 H (70-100) mg/dL Lactic Acid 1.7 (0.5-2.0) mmol/L Calcium 9.4 (8.6-10.3) mg/dL Total Bilirubin 0.50 (0.2-1.0) mg/dL AST 16 (13-39) U/L ALT 10 (7-52) U/L Alkaline Phosphatase 117 H (34-104) U/L Troponin I Pending Total Protein 7.1 (6.4-8.9) g/dL Albumin 3.3 (3.2-5.2) g/dL Globulin 3.8 (2-4) g/dL Albumin/Globulin Ratio 0.9 L (1-3) Triglycerides 164 mg/dL Cholesterol 188 mg/dL LDL Cholesterol 124 mg/dL HDL Cholesterol 31.2 mg/dL Assess/Plan/Problems-Billing Mr Loera is an 81 yo M who has a h/o past CVA, afib on coumadin, CAD, HTN, type II DM, stage III CKD, ELISABETH and BPH with urinary retention and chronic downey who presented to the ER with c/o nausea, vomiting and unresponsiveness. He was found to have a large R frontal intracerebral hemorrhage. - Patient Problems (1) Right-sided intracerebral hemorrhage Current Visit: Yes Status: Acute Code(s): I61.2 - NONTRAUMATIC INTRACEREBRAL HEMORRHAGE IN HEMISPHERE, UNSP SNOMED Code(s): 499168550 Comment: No significant improvement in his mental status. He opens his eyes spontaneously. No anticoagulants. His coumadin has been reversed. Monitor his mental status. Palliative care consult. (2) Catheter-associated urinary tract infection Current Visit: Yes Status: Acute Code(s): T83.51XA - ; N39.0 - URINARY TRACT INFECTION, SITE NOT SPECIFIED SNOMED Code(s): 52364526 Comment: The patient has an abnormal urinalysis-likely a catheter associated UTI. Continue ceftriaxone for now and await culture data. (3) HTN (hypertension) Current Visit: Yes Status: Acute Code(s): I10 - ESSENTIAL (PRIMARY) HYPERTENSION SNOMED Code(s): 62327019 Comment: BP is moderately elevated. Continue hydralazine prn SBP>160. (4) Type II diabetes mellitus Current Visit: Yes Status: Acute Comment: Sugars are under fair control. Continue lantus 27 units SQ daily. (5) CKD (chronic kidney disease) stage 3, GFR 30-59 ml/min Current Visit: Yes Status: Acute Code(s): N18.3 - CHRONIC KIDNEY DISEASE, STAGE 3 (MODERATE) SNOMED Code(s): 484824514 Comment: Creatinine is at baseline. Continue to monitor. (6) COPD (chronic obstructive pulmonary disease) Current Visit: Yes Status: Acute Code(s): J44.9 - CHRONIC OBSTRUCTIVE PULMONARY DISEASE, UNSPECIFIED SNOMED Code(s): 47172075 Comment: Stable- no signs of exacerbation. Monitor. (7) DVT prophylaxis Current Visit: Yes Status: Acute Code(s): TZX5052 - SNOMED Code(s): 762013320 Comment: SCDs only secondary to intracerebral hemorrhage (8) DNR (do not resuscitate) Current Visit: Yes Status: Acute
--- NOTE | 2016-08-16 13:21 | PN ---
Subjective Date of Service: 08/16/16 Interval History: Pt is non-verbal at this time. His family states he has not been opening his eyes as much as yesterday. Objective Active Medications: Acetaminophen (Tylenol Supp*) 650 mg UT Q6H PRN PRN Reason: FEVER/PAIN Last Admin: 08/15/16 23:10 Dose: 650 mg Albuterol (Ventolin 2.5 Mg/3 Ml Neb.Shelia*) 2.5 mg INH Q2H PRN PRN Reason: SOB/WHEEZING Hydralazine HCl (Apresoline Iv*) 5 mg IV SLOW PU Q6H PRN PRN Reason: SBP >160 Last Admin: 08/16/16 09:44 Dose: 5 mg Sodium Chloride (Ns 0.9% 1000 Ml*) 1,000 mls @ 100 mls/hr IV PER RATE [facility] Last Admin: 08/16/16 03:50 Dose: 100 mls/hr Ceftriaxone Sodium 1,000 mg/ (Sodium Chloride) 50 mls @ 200 mls/hr IVPB Q24H [facility] Last Admin: 08/15/16 18:08 Dose: 200 mls/hr Insulin Glargine (Lantus(*)) 27 units SUBCUT 2100 [facility] Insulin Human Lispro (Humalog*) 0 units SUBCUT Q4H [facility] PRN Reason: Protocol Last Admin: 08/16/16 12:21 Dose: Not Given Nystatin (Nystatin Oint*) 1 applic TOPICAL TID PRN PRN Reason: RASH Ondansetron HCl (Zofran Inj*) 4 mg IV Q6H PRN PRN Reason: NAUSEA Pantoprazole Sodium (Protonix Iv*) 40 mg IV DAILY [facility] Last Admin: 08/16/16 09:45 Dose: 40 mg Prochlorperazine Edisylate (Compazine Inj*) 10 mg IV Q6H PRN PRN Reason: NAUSEA Vital Signs 08/15/16 08/15/16 08/15/16 13:15 13:30 13:45 Temperature Pulse Rate 70 71 74 Respiratory 19 20 20 Rate Blood Pressure 146/68 161/51 (mmHg) O2 Sat by Pulse 100 100 100 Oximetry 08/15/16 08/15/16 08/15/16 14:00 14:15 14:30 Temperature Pulse Rate 73 73 74 Respiratory 18 17 20 Rate Blood Pressure 163/80 168/97 160/116 (mmHg) O2 Sat by Pulse 100 98 98 Oximetry 08/15/16 08/15/16 08/15/16 14:45 14:47 15:00 Temperature Pulse Rate 76 75 Respiratory 19 19 Rate Blood Pressure 175/132 145/65 (mmHg) O2 Sat by Pulse 99 98 Oximetry 08/15/16 08/15/16 08/15/16 15:15 15:30 15:45 Temperature Pulse Rate 74 71 70 Respiratory 21 22 20 Rate Blood Pressure 136/58 127/55 127/59 (mmHg) O2 Sat by Pulse 98 97 98 Oximetry 08/15/16 08/15/16 08/15/16 15:52 15:58 16:00 Temperature 100.1 F Pulse Rate 70 71 Respiratory 20 21 21 Rate Blood Pressure 128/51 128/51 (mmHg) O2 Sat by Pulse 100 99 Oximetry 08/15/16 08/15/16 08/15/16 16:15 16:30 16:45 Temperature Pulse Rate 72 73 71 Respiratory 22 19 21 Rate Blood Pressure 134/53 146/58 130/71 (mmHg) O2 Sat by Pulse 100 99 99 Oximetry 08/15/16 08/15/16 08/15/16 17:00 17:30 17:45 Temperature Pulse Rate 77 72 71 Respiratory 18 21 18 Rate Blood Pressure 164/64 159/70 (mmHg) O2 Sat by Pulse 99 99 99 Oximetry 08/15/16 08/15/16 08/15/16 18:00 18:15 18:30 Temperature Pulse Rate 75 75 74 Respiratory 21 21 17 Rate Blood Pressure 160/65 168/82 171/74 (mmHg) O2 Sat by Pulse 99 99 99 Oximetry 08/15/16 08/15/16 08/15/16 18:43 18:45 19:00 Temperature 100.4 F Pulse Rate 74 75 Respiratory 24 22 Rate Blood Pressure 153/63 157/71 (mmHg) O2 Sat by Pulse 99 98 Oximetry 08/15/16 08/15/16 08/15/16 19:15 19:30 19:45 Temperature Pulse Rate 75 76 Respiratory 22 20 Rate Blood Pressure 154/60 152/69 161/74 (mmHg) O2 Sat by Pulse 99 98 Oximetry 08/15/16 08/15/16 08/15/16 20:00 20:15 20:30 Temperature Pulse Rate 77 78 76 Respiratory 23 21 22 Rate Blood Pressure 139/78 154/87 156/74 (mmHg) O2 Sat by Pulse 98 98 98 Oximetry 08/15/16 08/15/16 08/15/16 20:31 20:32 20:45 Temperature Pulse Rate 65 76 Respiratory 18 Rate Blood Pressure 173/64 (mmHg) O2 Sat by Pulse 98 98 99 Oximetry 08/15/16 08/15/16 08/15/16 20:59 21:00 21:06 Temperature 99.2 F Pulse Rate 76 76 Respiratory 22 22 Rate Blood Pressure 161/133 141/78 (mmHg) O2 Sat by Pulse 99 99 Oximetry 08/15/16 08/15/16 08/15/16 21:15 21:30 22:00 Temperature Pulse Rate 77 78 79 Respiratory 22 22 22 Rate Blood Pressure 139/66 162/59 165/68 (mmHg) O2 Sat by Pulse 99 99 99 Oximetry 08/15/16 08/16/16 08/16/16 23:00 00:00 00:01 Temperature 100.1 F Pulse Rate 80 84 85 Respiratory 21 21 22 Rate Blood Pressure 134/57 157/66 (mmHg) O2 Sat by Pulse 98 99 99 Oximetry 08/16/16 08/16/16 08/16/16 01:00 02:00 03:00 Temperature Pulse Rate 77 75 79 Respiratory 21 20 23 Rate Blood Pressure 152/70 148/68 148/75 (mmHg) O2 Sat by Pulse 98 98 98 Oximetry 08/16/16 08/16/16 08/16/16 04:00 04:33 05:00 Temperature 100.7 F Pulse Rate 74 77 Respiratory 19 19 Rate Blood Pressure 154/54 145/66 (mmHg) O2 Sat by Pulse 96 98 Oximetry 08/16/16 08/16/16 08/16/16 06:00 07:00 07:20 Temperature Pulse Rate 76 72 77 Respiratory 19 19 19 Rate Blood Pressure 157/72 176/61 158/39 (mmHg) O2 Sat by Pulse 97 97 98 Oximetry 08/16/16 08/16/16 08/16/16 07:21 08:00 08:56 Temperature 99.0 F 98.7 F Pulse Rate 76 74 Respiratory 19 18 Rate Blood Pressure 119/64 164/86 (mmHg) O2 Sat by Pulse 97 99 Oximetry 08/16/16 10:32 Temperature Pulse Rate 72 Respiratory 18 Rate Blood Pressure (mmHg) O2 Sat by Pulse 98 Oximetry Oxygen Devices in Use Now: Nasal Cannula - 98%-2L Appearance: Elderly male sitting up in bed, sleeping, snoring, NAD Eyes: No Scleral Icterus Ears/Nose/Mouth/Throat: - - +dry tongue and lips Respiratory: Symmetrical Chest Expansion and Respiratory Effort, Clear to Auscultation - anteriorly Cardiovascular: NL Sounds; No Murmurs; No JVD, RRR, No Edema Abdominal: NL Sounds; No Tenderness; No Distention Extremities: No Clubbing, Cyanosis Skin: No Nodules or Sclerosis, - - + psoriatic like rash over bilateral knees Neurological: - - somnolent, opens his eyes once to my calling his name, he spontaneously moved the RUE and B/L LE, + shaking noted of RUE Result Diagrams: 08/16/16 05:46 08/16/16 05:46 Additional Lab and Data: Lab Results 08/15/16 08/15/16 08/15/16 Range/Units 04:10 04:10 04:10 INR (Anticoag Therapy) 2.77 H (0.89-1.11) APTT 52.2 H (26.0-36.3) seconds Sodium 129 L (133-145) mmol/L Potassium 3.6 (3.5-5.0) mmol/L Chloride 95 L (101-111) mmol/L Carbon Dioxide 25 (22-32) mmol/L Anion Gap 9 (2-11) mmol/L BUN 21 (6-24) mg/dL Creatinine 1.52 H (0.67-1.17) mg/dL Est GFR ( Amer) 57.0 (>60) Est GFR (Non-Af Amer) 44.3 (>60) BUN/Creatinine Ratio 13.8 (8-20) Glucose 216 H (70-100) mg/dL Lactic Acid 1.7 (0.5-2.0) mmol/L Calcium 9.4 (8.6-10.3) mg/dL Total Bilirubin 0.50 (0.2-1.0) mg/dL AST 16 (13-39) U/L ALT 10 (7-52) U/L Alkaline Phosphatase 117 H (34-104) U/L Troponin I Pending Total Protein 7.1 (6.4-8.9) g/dL Albumin 3.3 (3.2-5.2) g/dL Globulin 3.8 (2-4) g/dL Albumin/Globulin Ratio 0.9 L (1-3) Triglycerides 164 mg/dL Cholesterol 188 mg/dL LDL Cholesterol 124 mg/dL HDL Cholesterol 31.2 mg/dL Assess/Plan/Problems-Billing Mr Loera is an 81 yo M who has a h/o past CVA, afib on coumadin, CAD, HTN, type II DM, stage III CKD, ELISABETH and BPH with urinary retention and chronic downey who presented to the ER with c/o nausea, vomiting and unresponsiveness. He was found to have a large R frontal intracerebral hemorrhage. - Patient Problems (1) Right-sided intracerebral hemorrhage Current Visit: Yes Status: Acute Code(s): I61.2 - NONTRAUMATIC INTRACEREBRAL HEMORRHAGE IN HEMISPHERE, UNSP SNOMED Code(s): 213174650 Comment: No significant improvement in his mental status and infact he may be slightly worse as he is not opening his eyes as much. I question if he may be having seizures given the shaking of the RUE. Will get neurology consultation. I discussed at length with the patient's and one of his sons about the patient's poor prognosis. For now we will continue IVF and supportive care however if he fails to improve would recommend changing to comfort care. Continue to monitor his mental status. (2) Catheter-associated urinary tract infection Current Visit: Yes Status: Acute Code(s): T83.51XA - ; N39.0 - URINARY TRACT INFECTION, SITE NOT SPECIFIED SNOMED Code(s): 46284299 Comment: The patient has an abnormal urinalysis-likely a catheter associated UTI. Continue ceftriaxone for now and await culture data-nothing back yet. (3) Elevated troponin Current Visit: Yes Status: Acute Code(s): R74.8 - ABNORMAL LEVELS OF OTHER SERUM ENZYMES SNOMED Code(s): 512387693 Comment: ? demand ischemia as cause of elevated troponin. Would not pursue any work up at this time given his poor prognosis. (4) HTN (hypertension) Current Visit: Yes Status: Acute Code(s): I10 - ESSENTIAL (PRIMARY) HYPERTENSION SNOMED Code(s): 94915892 Comment: BP is moderately elevated. Continue hydralazine prn SBP>160. (5) Type II diabetes mellitus Current Visit: Yes Status: Acute Comment: Sugars are under fair control. Continue lantus 27 units SQ daily. (6) CKD (chronic kidney disease) stage 3, GFR 30-59 ml/min Current Visit: Yes Status: Acute Code(s): N18.3 - CHRONIC KIDNEY DISEASE, STAGE 3 (MODERATE) SNOMED Code(s): 325646541 Comment: Creatinine is worsened today desite getting IVF. Will continue to monitor. (7) COPD (chronic obstructive pulmonary disease) Current Visit: Yes Status: Acute Code(s): J44.9 - CHRONIC OBSTRUCTIVE PULMONARY DISEASE, UNSPECIFIED SNOMED Code(s): 84721949 Comment: Stable- no signs of exacerbation. Monitor. (8) DVT prophylaxis Current Visit: Yes Status: Acute Code(s): TLE6909 - SNOMED Code(s): 033986413 Comment: SCDs only secondary to intracerebral hemorrhage (9) DNR (do not resuscitate) Current Visit: Yes Status: Acute
[2016-08-16] MEDS: cefTRIAXone VIAL(*) 1,000 MG in NS 0.9% 50 ML* 50 ML IVPB SCH (18:19)
[2016-08-16] MEDS ORDERED: KCL 10 MEQ/50 ML IVPREMIX* 10 MEQ/50 ML BAG IV ONE (19:51)
[2016-08-16] MEDS: Acetaminophen SUPP* 650 MG SUPP PR PRN (20:13)
[2016-08-16] MEDS: Insulin GLARGINE(*) 1 UNITS UNIT SUBCUT SCH (21:38)
[2016-08-17] MEDS: NS 0.9% 1000 ML* 1,000 ML IV SCH ×2 (04:06→15:14)
[2016-08-17] MEDS: hydrALAZINE IV* 20 MG/ML VIAL IV SLOW PU PRN (04:29)
[2016-08-17] MEDS: Insulin LISPRO* 1 UNITS UNIT SUBCUT SCH ×5 (04:31→19:44)
[2016-08-17] MEDS: Pantoprazole IV* 40 MG IV SCH (08:29)
[2016-08-17 08:50] LABS: BUN/Creatinine Ratio 17.3 (8-20); Calcium 8.6 mg/dL (8.6-10.3); EGFR African American 47.2 (>60); EGFR Non-African American 36.7 (>60)
--- NOTE | 2016-08-17 15:28 | PN ---
Subjective Date of Service: 08/17/16 Interval History: Pt is not responding to me at this time. His daughter states that overnight he suddenly sat up in bed and opened his eyes wide. She was concerned for seizure. His notes that he said the words "what" and "I love" within the last 24hr. Objective Active Medications: Acetaminophen (Tylenol Supp*) 650 mg GA Q6H PRN PRN Reason: FEVER/PAIN Last Admin: 08/16/16 20:13 Dose: 650 mg Albuterol (Ventolin 2.5 Mg/3 Ml Neb.Shelia*) 2.5 mg INH Q2H PRN PRN Reason: SOB/WHEEZING Hydralazine HCl (Apresoline Iv*) 5 mg IV SLOW PU Q6H PRN PRN Reason: SBP >160 Last Admin: 08/17/16 04:29 Dose: 5 mg Sodium Chloride (Ns 0.9% 1000 Ml*) 1,000 mls @ 100 mls/hr IV PER RATE [facility] Last Admin: 08/17/16 04:06 Dose: 100 mls/hr Ceftriaxone Sodium 1,000 mg/ (Sodium Chloride) 50 mls @ 200 mls/hr IVPB Q24H [facility] Last Admin: 08/16/16 18:19 Dose: 200 mls/hr Insulin Glargine (Lantus(*)) 27 units SUBCUT 2100 [facility] Last Admin: 08/16/16 21:38 Dose: 27 unit Insulin Human Lispro (Humalog*) 0 units SUBCUT Q4H [facility] PRN Reason: Protocol Last Admin: 08/17/16 12:25 Dose: Not Given Nystatin (Nystatin Oint*) 1 applic TOPICAL TID PRN PRN Reason: RASH Ondansetron HCl (Zofran Inj*) 4 mg IV Q6H PRN PRN Reason: NAUSEA Pantoprazole Sodium (Protonix Iv*) 40 mg IV DAILY [facility] Last Admin: 08/17/16 08:29 Dose: 40 mg Prochlorperazine Edisylate (Compazine Inj*) 10 mg IV Q6H PRN PRN Reason: NAUSEA Vital Signs 08/16/16 08/16/16 08/16/16 15:29 20:00 20:04 Temperature 98.6 F 99.6 F Pulse Rate 81 93 Respiratory 20 Rate Blood Pressure 169/71 154/69 (mmHg) O2 Sat by Pulse 100 99 Oximetry 08/16/16 08/17/16 08/17/16 21:30 00:17 04:11 Temperature 99.5 F 98.2 F 98.0 F Pulse Rate 67 75 Respiratory 16 16 Rate Blood Pressure 136/70 163/76 (mmHg) O2 Sat by Pulse 100 99 Oximetry 08/17/16 08/17/16 08/17/16 07:43 07:52 11:10 Temperature 98.2 F Pulse Rate 77 81 Respiratory 18 18 18 Rate Blood Pressure 150/69 (mmHg) O2 Sat by Pulse 100 95 Oximetry 08/17/16 11:52 Temperature 98.9 F Pulse Rate 83 Respiratory 20 Rate Blood Pressure 156/70 (mmHg) O2 Sat by Pulse 99 Oximetry Oxygen Devices in Use Now: Simple Face Mask - 99%-2L Appearance: Elderly male lying in bed minimally responsive, NAD Eyes: No Scleral Icterus Ears/Nose/Mouth/Throat: Mucous Membranes Moist Respiratory: Symmetrical Chest Expansion and Respiratory Effort, Clear to Auscultation - anteriorly Cardiovascular: NL Sounds; No Murmurs; No JVD, RRR, No Edema Abdominal: NL Sounds; No Tenderness; No Distention Extremities: No Clubbing, Cyanosis Skin: No Nodules or Sclerosis Neurological: - - minimally responsive, does not open eyes to my calling his name today, he is seen moving his L UE spontaneously Result Diagrams: 08/16/16 05:46 08/17/16 08:07 Additional Lab and Data: Lab Results 08/15/16 08/15/16 08/15/16 Range/Units 04:10 04:10 04:10 INR (Anticoag Therapy) 2.77 H (0.89-1.11) APTT 52.2 H (26.0-36.3) seconds Sodium 129 L (133-145) mmol/L Potassium 3.6 (3.5-5.0) mmol/L Chloride 95 L (101-111) mmol/L Carbon Dioxide 25 (22-32) mmol/L Anion Gap 9 (2-11) mmol/L BUN 21 (6-24) mg/dL Creatinine 1.52 H (0.67-1.17) mg/dL Est GFR ( Amer) 57.0 (>60) Est GFR (Non-Af Amer) 44.3 (>60) BUN/Creatinine Ratio 13.8 (8-20) Glucose 216 H (70-100) mg/dL Lactic Acid 1.7 (0.5-2.0) mmol/L Calcium 9.4 (8.6-10.3) mg/dL Total Bilirubin 0.50 (0.2-1.0) mg/dL AST 16 (13-39) U/L ALT 10 (7-52) U/L Alkaline Phosphatase 117 H (34-104) U/L Troponin I Pending Total Protein 7.1 (6.4-8.9) g/dL Albumin 3.3 (3.2-5.2) g/dL Globulin 3.8 (2-4) g/dL Albumin/Globulin Ratio 0.9 L (1-3) Triglycerides 164 mg/dL Cholesterol 188 mg/dL LDL Cholesterol 124 mg/dL HDL Cholesterol 31.2 mg/dL Microbiology and Other Data: Microbiology 08/15/16 15:00 Urine Culture - Final Urine Corynebacterium Striatum Assess/Plan/Problems-Billing Mr Loera is an 81 yo M who has a h/o past CVA, afib on coumadin, CAD, HTN, type II DM, stage III CKD, ELISABETH and BPH with urinary retention and chronic downey who presented to the ER with c/o nausea, vomiting and unresponsiveness. He was found to have a large R frontal intracerebral hemorrhage. - Patient Problems (1) Right-sided intracerebral hemorrhage Current Visit: Yes Status: Acute Code(s): I61.2 - NONTRAUMATIC INTRACEREBRAL HEMORRHAGE IN HEMISPHERE, UNSP SNOMED Code(s): 532704038 Comment: No improvement in his mental status. He said a couple words but overall is still minimally responsive. Essentially no hope of the patient being able to start to take in liquid or nutrition by mouth. He indicated previously that he would not want a feeding tube. I again discussed at length with the patient's , one daughter and friend the most compassionate thing to do at this time is switch to comfort care and allow him to pass away peacefully as that would honor his wishes. Continue neurochecks q6hr. Continue IVF for now. Dr. Callahan saw the patient and at this time does not recommend (2) Catheter-associated urinary tract infection Current Visit: Yes Status: Acute Code(s): T83.51XA - ; N39.0 - URINARY TRACT INFECTION, SITE NOT SPECIFIED SNOMED Code(s): 47747323 Comment: Pt's urine grew corynebacterium striatum. Continue ceftriaxone. (3) Elevated troponin Current Visit: Yes Status: Acute Code(s): R74.8 - ABNORMAL LEVELS OF OTHER SERUM ENZYMES SNOMED Code(s): 109177895 Comment: ? demand ischemia as cause of elevated troponin. Would not pursue any work up at this time given his poor prognosis. (4) HTN (hypertension) Current Visit: Yes Status: Acute Code(s): I10 - ESSENTIAL (PRIMARY) HYPERTENSION SNOMED Code(s): 57428590 Comment: BP is moderately elevated. Continue hydralazine prn SBP>160. (5) Type II diabetes mellitus Current Visit: Yes Status: Acute Comment: Sugars are under fair control. Continue lantus 27 units SQ daily. (6) CKD (chronic kidney disease) stage 3, GFR 30-59 ml/min Current Visit: Yes Status: Acute Code(s): N18.3 - CHRONIC KIDNEY DISEASE, STAGE 3 (MODERATE) SNOMED Code(s): 080232789 Comment: Creatinine is worsened today desite getting IVF. Will continue to monitor. (7) COPD (chronic obstructive pulmonary disease) Current Visit: Yes Status: Acute Code(s): J44.9 - CHRONIC OBSTRUCTIVE PULMONARY DISEASE, UNSPECIFIED SNOMED Code(s): 10119447 Comment: Stable- no signs of exacerbation. Monitor. (8) DVT prophylaxis Current Visit: Yes Status: Acute Code(s): FLW7309 - SNOMED Code(s): 942500030 Comment: SCDs only secondary to intracerebral hemorrhage (9) DNR (do not resuscitate) Current Visit: Yes Status: Acute
[2016-08-17] MEDS: cefTRIAXone VIAL(*) 1,000 MG in NS 0.9% 50 ML* 50 ML IVPB SCH (18:35)
[2016-08-17] MEDS: Insulin GLARGINE(*) 1 UNITS UNIT SUBCUT SCH (20:42)
[2016-08-18] MEDS: Insulin LISPRO* 1 UNITS UNIT SUBCUT SCH ×6 (00:41→19:52)
[2016-08-18] MEDS: NS 0.9% 1000 ML* 1,000 ML IV SCH ×3 (01:02→22:30)
[2016-08-18] MEDS: hydrALAZINE IV* 20 MG/ML VIAL IV SLOW PU PRN ×3 (01:02→23:44)
[2016-08-18] MEDS: Pantoprazole IV* 40 MG IV SCH (09:42)
--- NOTE | 2016-08-18 10:45 | PN ---
Subjective Date of Service: 08/18/16 Interval History: Pt reportedly started vocalizing last night and was noted to be much more alert. He did not vocalize any answers to me but he did shake his head no to being in pain. He stopped shaking/nodding to answers but I was able to ask "are you thirsty? If yes squeeze my hand" and he squeezed tightly. Objective Active Medications: Acetaminophen (Tylenol Supp*) 650 mg UT Q6H PRN PRN Reason: FEVER/PAIN Last Admin: 08/16/16 20:13 Dose: 650 mg Albuterol (Ventolin 2.5 Mg/3 Ml Neb.Shelia*) 2.5 mg INH Q2H PRN PRN Reason: SOB/WHEEZING Hydralazine HCl (Apresoline Iv*) 5 mg IV SLOW PU Q6H PRN PRN Reason: SBP >160 Last Admin: 08/18/16 01:02 Dose: 5 mg Sodium Chloride (Ns 0.9% 1000 Ml*) 1,000 mls @ 100 mls/hr IV PER RATE [facility] Last Admin: 08/18/16 01:02 Dose: 100 mls/hr Ceftriaxone Sodium 1,000 mg/ (Sodium Chloride) 50 mls @ 200 mls/hr IVPB Q24H [facility] Last Admin: 08/17/16 18:35 Dose: 200 mls/hr Insulin Glargine (Lantus(*)) 27 units SUBCUT 2100 [facility] Last Admin: 08/17/16 20:42 Dose: 27 unit Insulin Human Lispro (Humalog*) 0 units SUBCUT Q4H [facility] PRN Reason: Protocol Last Admin: 08/18/16 08:06 Dose: Not Given Nystatin (Nystatin Oint*) 1 applic TOPICAL TID PRN PRN Reason: RASH Ondansetron HCl (Zofran Inj*) 4 mg IV Q6H PRN PRN Reason: NAUSEA Pantoprazole Sodium (Protonix Iv*) 40 mg IV DAILY [facility] Last Admin: 08/18/16 09:42 Dose: 40 mg Prochlorperazine Edisylate (Compazine Inj*) 10 mg IV Q6H PRN PRN Reason: NAUSEA Vital Signs 08/17/16 08/17/16 08/17/16 11:10 11:52 15:41 Temperature 98.9 F 98.2 F Pulse Rate 81 83 77 Respiratory 18 20 17 Rate Blood Pressure 156/70 152/67 (mmHg) O2 Sat by Pulse 95 99 93 Oximetry 08/17/16 08/17/16 08/17/16 19:52 20:00 22:53 Temperature 98.7 F Pulse Rate 85 Respiratory 19 19 Rate Blood Pressure 181/78 157/71 (mmHg) O2 Sat by Pulse 95 Oximetry 08/18/16 08/18/16 08/18/16 00:10 04:06 04:48 Temperature 98.8 F Pulse Rate 87 87 81 Respiratory 16 16 13 Rate Blood Pressure 162/90 160/69 (mmHg) O2 Sat by Pulse 96 95 95 Oximetry 08/18/16 08/18/16 08/18/16 07:19 07:27 07:57 Temperature Pulse Rate 89 Respiratory 18 18 18 Rate Blood Pressure (mmHg) O2 Sat by Pulse 94 Oximetry 08/18/16 08:01 Temperature Pulse Rate Respiratory Rate Blood Pressure 160/70 (mmHg) O2 Sat by Pulse Oximetry Oxygen Devices in Use Now: None Appearance: Elderly male sitting up in bed, eyes open, NAD Eyes: No Scleral Icterus Ears/Nose/Mouth/Throat: - - dry oral mucosa Respiratory: Symmetrical Chest Expansion and Respiratory Effort, Clear to Auscultation - with bibasilar crackles Cardiovascular: NL Sounds; No Murmurs; No JVD, - - irregularly irregular, controlled rate Abdominal: NL Sounds; No Tenderness; No Distention Extremities: No Clubbing, Cyanosis Skin: No Rash or Ulcers, No Nodules or Sclerosis Neurological: - - alert Result Diagrams: 08/16/16 05:46 08/17/16 08:07 Additional Lab and Data: Lab Results 08/15/16 08/15/16 08/15/16 Range/Units 04:10 04:10 04:10 INR (Anticoag Therapy) 2.77 H (0.89-1.11) APTT 52.2 H (26.0-36.3) seconds Sodium 129 L (133-145) mmol/L Potassium 3.6 (3.5-5.0) mmol/L Chloride 95 L (101-111) mmol/L Carbon Dioxide 25 (22-32) mmol/L Anion Gap 9 (2-11) mmol/L BUN 21 (6-24) mg/dL Creatinine 1.52 H (0.67-1.17) mg/dL Est GFR ( Amer) 57.0 (>60) Est GFR (Non-Af Amer) 44.3 (>60) BUN/Creatinine Ratio 13.8 (8-20) Glucose 216 H (70-100) mg/dL Lactic Acid 1.7 (0.5-2.0) mmol/L Calcium 9.4 (8.6-10.3) mg/dL Total Bilirubin 0.50 (0.2-1.0) mg/dL AST 16 (13-39) U/L ALT 10 (7-52) U/L Alkaline Phosphatase 117 H (34-104) U/L Troponin I Pending Total Protein 7.1 (6.4-8.9) g/dL Albumin 3.3 (3.2-5.2) g/dL Globulin 3.8 (2-4) g/dL Albumin/Globulin Ratio 0.9 L (1-3) Triglycerides 164 mg/dL Cholesterol 188 mg/dL LDL Cholesterol 124 mg/dL HDL Cholesterol 31.2 mg/dL Microbiology and Other Data: Microbiology 08/15/16 15:00 Urine Culture - Final Urine Corynebacterium Striatum Assess/Plan/Problems-Billing Mr Loera is an 81 yo M who has a h/o past CVA, afib on coumadin, CAD, HTN, type II DM, stage III CKD, ELISABETH and BPH with urinary retention and chronic downey who presented to the ER with c/o nausea, vomiting and unresponsiveness. He was found to have a large R frontal intracerebral hemorrhage. - Patient Problems (1) Right-sided intracerebral hemorrhage Current Visit: Yes Status: Acute Code(s): I61.2 - NONTRAUMATIC INTRACEREBRAL HEMORRHAGE IN HEMISPHERE, UNSP SNOMED Code(s): 192722200 Comment: Pt is alert today and somewhat communicative. I am still concerned he will not be able to swallow safely. His daughter who is present states that overnight he spoke some words. Will be having a family meeting today to discuss options moving forward. Will likely end up keeping the IVF going and having a speech eval tomorrow. (2) Catheter-associated urinary tract infection Current Visit: Yes Status: Acute Code(s): T83.51XA - ; N39.0 - URINARY TRACT INFECTION, SITE NOT SPECIFIED SNOMED Code(s): 11048317 Comment: Pt's urine grew corynebacterium striatum. Continue ceftriaxone. (3) Elevated troponin Current Visit: Yes Status: Acute Code(s): R74.8 - ABNORMAL LEVELS OF OTHER SERUM ENZYMES SNOMED Code(s): 263080484 Comment: ? demand ischemia as cause of elevated troponin. Would not pursue any work up at this time given his poor prognosis. (4) HTN (hypertension) Current Visit: Yes Status: Acute Code(s): I10 - ESSENTIAL (PRIMARY) HYPERTENSION SNOMED Code(s): 83070296 Comment: BP is moderately elevated. Continue hydralazine prn SBP>160. (5) Type II diabetes mellitus Current Visit: Yes Status: Acute Comment: Sugars are under fair control. Continue lantus 27 units SQ daily. (6) CKD (chronic kidney disease) stage 3, GFR 30-59 ml/min Current Visit: Yes Status: Acute Code(s): N18.3 - CHRONIC KIDNEY DISEASE, STAGE 3 (MODERATE) SNOMED Code(s): 759634365 Comment: Creatinine is worsened today desite getting IVF. Will continue to monitor. (7) COPD (chronic obstructive pulmonary disease) Current Visit: Yes Status: Acute Code(s): J44.9 - CHRONIC OBSTRUCTIVE PULMONARY DISEASE, UNSPECIFIED SNOMED Code(s): 81897425 Comment: Stable- no signs of exacerbation. Monitor. (8) DVT prophylaxis Current Visit: Yes Status: Acute Code(s): OIZ2400 - SNOMED Code(s): 944803883 Comment: SCDs only secondary to intracerebral hemorrhage (9) DNR (do not resuscitate) Current Visit: Yes Status: Acute
[2016-08-18] MEDS ORDERED: Insulin GLARGINE(*) 1 UNITS UNIT SUBCUT SCH (10:50)
--- NOTE | 2016-08-18 13:00 | PN ---
Progress Note - Progress Note Note: I attempted to have a family meeting with the patient and his and 4 of his 5 children to discuss options moving forward. The patient's is the designated HCP. The children have seemed to have all agreed that he would not want a feeding tube if he were not able to swallow. No decision was made on IVF hydration. After the swallow evaluation tomorrow will need to discuss what to do with IVF hydration. I suspect he will fail the swallow eval. If he fails the eval will need to again discuss the feeding tube as I am not convinced everyone is on board. If they decide against the feeding tube will discuss hospice with allowing him to try to eat/drink while on comfort care accepting that he will likely aspirate. Will meet with family again tomorrow.
--- NOTE | 2016-08-18 13:20 | RAD ---
INDICATION: Intracranial hemorrhage, follow-up. COMPARISON: Comparison is made with a prior CT of the brain from August 15, 2016 and a prior MRI of the brain from April 18, 2016. TECHNIQUE: Contiguous axial sections of the brain were obtained from the skull base to the vertex without contrast. FINDINGS: There is a 3.6 x 3.0 cm area of hemorrhage which is uniformly dense present in the right frontal lobe centered in the subcortical white matter and centrum semiovale which is unchanged from the prior study. There is mild local mass effect and slight compression of the right lateral ventricle which are unchanged. The ventricles, cisterns and sulci are enlarged consistent with moderate to severe diffuse atrophy. There are confluent areas of decreased attenuation present in the subcortical and periventricular white matter most consistent with severe chronic small vessel ischemic changes. No other focal abnormalities are seen. No significant focal osseous abnormality is seen. The visualized portion of the paranasal sinuses and mastoid air cells appear clear. IMPRESSION: THERE IS NO CHANGE IN THE RIGHT FRONTAL LOBE INTRAPARENCHYMAL SUBACUTE HEMORRHAGE.
[2016-08-18] MEDS ORDERED: Labetalol IV* 5 MG/ML 20 ML VIAL IV PUSH ONE ×2 (15:55→22:14)
[2016-08-18] MEDS ORDERED: hydrALAZINE IV* 20 MG/ML VIAL IV SLOW PU ONE ×2 (17:46→21:20)
[2016-08-18] MEDS: cefTRIAXone VIAL(*) 1,000 MG in NS 0.9% 50 ML* 50 ML IVPB SCH (18:16)
[2016-08-19] MEDS: Insulin LISPRO* 1 UNITS UNIT SUBCUT SCH ×4 (02:25→21:29)
--- NOTE | 2016-08-19 04:15 | CONS ---
NEUROLOGY CONSULTATION: DATE OF CONSULTATION: 08/16/16 LOCATION: He is in room 451. REFERRING PHYSICIAN: Dr. Lin. PRIMARY CARE PROVIDER: Dr. Houser. CHIEF COMPLAINT: Intracranial hemorrhage, possible seizures. HISTORY OF PRESENT ILLNESS: Travon Loera is an 81-year-old right-handed man who was admitted on 08/15/16 when he was found unresponsive by his at about 3:30 in the morning the day of admission. Apparently, he had vomited and was agitated and confused. He was brought into the emergency room where CAT scan of the brain revealed a right frontal intraparenchymal primary intracranial hemorrhage, which was about 3.5 x 3.5 x 3.5 cm. He was on Coumadin with an INR of 2.7. FFP and vitamin K were given. Neurosurgery was consulted and did not feel surgical intervention would be beneficial. He was on Coumadin for atrial fibrillation. He has been noted to have involuntary movements of the right upper extremity since at least yesterday. His says he has a severe upper extremity tremor and has difficulty feeding himself at home. He is also nonambulatory in part because of diabetic neuropathy and other multiple medical comorbidities. He has been generally unresponsive and not opening his eyes today according to the family. He has not had any generalized jerking but at times his whole upper body seems to shake. PAST MEDICAL HISTORY: Notable for atrial fibrillation, diabetes with diabetic neuropathy, coronary artery disease, carotid stenosis, BPH, hyperlipidemia, urinary retention, lumbar stenosis, history of left hemisphere stroke September 2015. CURRENT MEDICATIONS: Consist of: 1. Ceftriaxone 1 g q.24 hours. 2. Albuterol inhaler p.r.n. 2. Hydralazine 5 mg q.6 hours, systolic blood pressure greater than 160. 3. Sliding scale insulin. 4. Protonix 40 mg IV daily. 5. Zofran 4 mg IV q.6 hours p.r.n. nausea. ALLERGIES: According to computer records, he is allergic to NITROFURANTOIN and PENICILLIN and SULFA DRUGS. REVIEW OF SYSTEMS: From his spouse is notable that he is Annie lift at home. He has not walked for a year or so. He has severe tremors. He has chronic numbness in his feet and weakness in his feet and hands. PHYSICAL EXAMINATION: He is obese. Temperature last 98.6 orally, blood pressure last in the records 164/86, heart rate in the 70s. Neurologically, his eyes are closed and he is breathing spontaneously with the mask on. He has irregular tremors of the right upper extremity, which fluctuates. He reaches out with his right arm at times. He does not move the left side spontaneously other than some twitching movements of the left foot and right foot. When I open his eyes, he looks to some family members on his right who are calling him. He does not attempt to vocalize. He seems to make good visual contact. Pupils react equally from 4-2 mm and fundi revealed sharp discs bilaterally. He has a weak corneal reflex on the right but not the left. He does not respond to nasal tickle on the left but he grimaces with nasal tickle to the right moving the right face better than the left. He reaches up with the tremulous right arm to try to remove the stimulus. He does not move the legs spontaneously. He has some rigidity of the left arm and legs. He has a spontaneous left Babinski sign. He does not attempt to vocalize. He does not follow commands. He has a pretty strong grasp on the right hand. DIAGNOSTIC STUDIES/LAB DATA: Laboratory data includes a CBC from today notable for drop in hemoglobin from 12.2 to 9.6 over about 24 hours, platelet count [id number]. His INR when he came in was 2.77, as of this morning is 1.12. Chemistries notable for a glucose of 135, troponins up to 0.09 and was 0[address] of the brain from admission 8 hours later is reviewed. He has a firmly large 3.5 cm diameter intraparenchymal hemorrhage with some mass affecting shift and edema. There is no intraventricular blood other than perhaps a little bit in the right temporal horn. IMPRESSION: Primary hypertensive lobar hemorrhage. Prognosis is very poor. I do not think his movements are ictal. He is responding to stimuli it looks more tremulous. His reports a severe upper extremity tremor and now the left side is plegic. So, I think it is severe right-sided tremor probably aggravated by autonomic outflow associated with his brain hemorrhage. We would not recommend anticonvulsants at this point. If he continues on recovering, still has some movements on that side, then an EEG might be helpful , but I do not think it is necessary at this point while his status and aggressiveness with care still being studied. [id number]/[facility] #: [id number] MAILE
[2016-08-19] MEDS: hydrALAZINE IV* 20 MG/ML VIAL IV SLOW PU PRN ×4 (04:20→15:54)
[2016-08-19 05:30] LABS: Hematocrit 33 % (42-52); Hemoglobin 10.7 g/dl (14.0-18.0); Mean Corpuscular HGB Conc 33 g/dl (31-36); Mean Corpuscular Hemoglobin 28 pg (27-31); Mean Corpuscular Volume 84 fL (80-94); Mean Platelet Volume 7 um3 (7.4-10.4); Red Blood Count 3.87 10^6/ul (4.0-5.4); Red Cell Distribution Width 16 % (10.5-15)
[2016-08-19 05:50] LABS: BUN/Creatinine Ratio 18.8 (8-20); Calcium 8.4 mg/dL (8.6-10.3); EGFR African American 56.2 (>60); EGFR Non-African American 43.7 (>60); Potassium 3.2 mmol/L (3.5-5.0)
[2016-08-19] MEDS: Pantoprazole IV* 40 MG IV SCH (08:23)
[2016-08-19] MEDS: NS 0.9% 1000 ML* 1,000 ML IV SCH ×2 (08:29→21:38)
[2016-08-19] MEDS: Acetaminophen SUPP* 650 MG SUPP PR PRN ×2 (12:04→21:43)
--- NOTE | 2016-08-19 15:53 | PN ---
Subjective Date of Service: 08/19/16 Interval History: Pt is sleeping, he awakens to voice but does not vocalize any answers or even try to communicate. Objective Active Medications: Acetaminophen (Tylenol Supp*) 650 mg OK Q6H PRN PRN Reason: FEVER/PAIN Last Admin: 08/19/16 12:04 Dose: 650 mg Albuterol (Ventolin 2.5 Mg/3 Ml Neb.Shelia*) 2.5 mg INH Q2H PRN PRN Reason: SOB/WHEEZING Hydralazine HCl (Apresoline Iv*) 5 mg IV SLOW PU Q4H PRN PRN Reason: SBP >160 Last Admin: 08/19/16 12:00 Dose: 5 mg Sodium Chloride (Ns 0.9% 1000 Ml*) 1,000 mls @ 100 mls/hr IV PER RATE [facility] Last Admin: 08/19/16 08:29 Dose: 100 mls/hr Ceftriaxone Sodium 1,000 mg/ (Sodium Chloride) 50 mls @ 200 mls/hr IVPB Q24H [facility] Last Admin: 08/18/16 18:16 Dose: 200 mls/hr Potassium Chloride (Potassium Chloride 20 Meq/100 Ml Ivpremix*) 20 meq in 100 mls @ 50 mls/hr IV Q2H [facility] Stop: 08/19/16 19:59 Insulin Glargine (Lantus(*)) 23 units SUBCUT 2100 [facility] Last Admin: 08/18/16 20:40 Dose: 23 units Insulin Human Lispro (Humalog*) 0 units SUBCUT Q6H [facility] PRN Reason: Protocol Last Admin: 08/19/16 14:17 Dose: 3 units Nystatin (Nystatin Oint*) 1 applic TOPICAL TID PRN PRN Reason: RASH Ondansetron HCl (Zofran Inj*) 4 mg IV Q6H PRN PRN Reason: NAUSEA Pantoprazole Sodium (Protonix Iv*) 40 mg IV DAILY [facility] Last Admin: 08/19/16 08:23 Dose: 40 mg Prochlorperazine Edisylate (Compazine Inj*) 10 mg IV Q6H PRN PRN Reason: NAUSEA Vital Signs 08/18/16 08/18/16 08/18/16 19:00 19:53 20:00 Temperature Pulse Rate Respiratory 18 Rate Blood Pressure 187/93 168/87 (mmHg) O2 Sat by Pulse Oximetry 03/05/17 03/05/17 03/05/17 21:18 22:07 23:15 Temperature 98.0 F Pulse Rate 79 Respiratory 20 Rate Blood Pressure 186/84 190/65 178/82 (mmHg) O2 Sat by Pulse 97 Oximetry 08/19/16 08/19/16 08/19/16 01:05 04:07 06:26 Temperature 98.7 F Pulse Rate 71 82 Respiratory 24 Rate Blood Pressure 157/63 169/85 172/78 (mmHg) O2 Sat by Pulse 97 Oximetry 08/19/16 08/19/16 08/19/16 07:57 08:00 09:47 Temperature Pulse Rate 85 80 Respiratory 20 20 20 Rate Blood Pressure 176/73 (mmHg) O2 Sat by Pulse 97 97 Oximetry 08/19/16 11:48 Temperature 99.0 F Pulse Rate 87 Respiratory 18 Rate Blood Pressure 185/79 (mmHg) O2 Sat by Pulse 98 Oximetry Oxygen Devices in Use Now: None Appearance: Elderly male sitting up in bed sleeping, awakens to voice, NAD Eyes: No Scleral Icterus Ears/Nose/Mouth/Throat: Mucous Membranes Moist Respiratory: Symmetrical Chest Expansion and Respiratory Effort, Clear to Auscultation - anteriorly Cardiovascular: NL Sounds; No Murmurs; No JVD, No Edema, - - irregularly irregular Abdominal: NL Sounds; No Tenderness; No Distention Extremities: No Clubbing, Cyanosis Skin: No Rash or Ulcers, No Nodules or Sclerosis Neurological: Alert and Oriented x 3 Result Diagrams: 08/19/16 05:06 08/19/16 05:06 Additional Lab and Data: Lab Results 08/15/16 08/15/16 08/15/16 Range/Units 04:10 04:10 04:10 INR (Anticoag Therapy) 2.77 H (0.89-1.11) APTT 52.2 H (26.0-36.3) seconds Sodium 129 L (133-145) mmol/L Potassium 3.6 (3.5-5.0) mmol/L Chloride 95 L (101-111) mmol/L Carbon Dioxide 25 (22-32) mmol/L Anion Gap 9 (2-11) mmol/L BUN 21 (6-24) mg/dL Creatinine 1.52 H (0.67-1.17) mg/dL Est GFR ( Amer) 57.0 (>60) Est GFR (Non-Af Amer) 44.3 (>60) BUN/Creatinine Ratio 13.8 (8-20) Glucose 216 H (70-100) mg/dL Lactic Acid 1.7 (0.5-2.0) mmol/L Calcium 9.4 (8.6-10.3) mg/dL Total Bilirubin 0.50 (0.2-1.0) mg/dL AST 16 (13-39) U/L ALT 10 (7-52) U/L Alkaline Phosphatase 117 H (34-104) U/L Troponin I Pending Total Protein 7.1 (6.4-8.9) g/dL Albumin 3.3 (3.2-5.2) g/dL Globulin 3.8 (2-4) g/dL Albumin/Globulin Ratio 0.9 L (1-3) Triglycerides 164 mg/dL Cholesterol 188 mg/dL LDL Cholesterol 124 mg/dL HDL Cholesterol 31.2 mg/dL Microbiology and Other Data: Microbiology 08/15/16 15:00 Urine Culture - Final Urine Corynebacterium Striatum Assess/Plan/Problems-Billing Mr Loera is an 81 yo M who has a h/o past CVA, afib on coumadin, CAD, HTN, type II DM, stage III CKD, ELISABETH and BPH with urinary retention and chronic downey who presented to the ER with c/o nausea, vomiting and unresponsiveness. He was found to have a large R frontal intracerebral hemorrhage. - Patient Problems (1) Right-sided intracerebral hemorrhage Current Visit: Yes Status: Acute Code(s): I61.2 - NONTRAUMATIC INTRACEREBRAL HEMORRHAGE IN HEMISPHERE, UNSP SNOMED Code(s): 815810214 Comment: Pt is was more alert this am and able to complete a swallow study. He successfully swallowed pureed textures with honey thickened liquids. Continue IVF until he is taking in enough by mouth. Will need to look into placement as the patient was marignal at home previously and now is worsened. (2) Catheter-associated urinary tract infection Current Visit: Yes Status: Acute Code(s): T83.51XA - ; N39.0 - URINARY TRACT INFECTION, SITE NOT SPECIFIED SNOMED Code(s): 73571842 Comment: Pt's urine grew corynebacterium striatum. Continue ceftriaxone- today is D# 5/. (3) Elevated troponin Current Visit: Yes Status: Acute Code(s): R74.8 - ABNORMAL LEVELS OF OTHER SERUM ENZYMES SNOMED Code(s): 434373446 Comment: ? demand ischemia as cause of elevated troponin. Would not pursue any work up at this time given his poor prognosis. (4) HTN (hypertension) Current Visit: Yes Status: Acute Code(s): I10 - ESSENTIAL (PRIMARY) HYPERTENSION SNOMED Code(s): 81848228 Comment: BP is moderately elevated. Continue hydralazine prn SBP>160. (5) Type II diabetes mellitus Current Visit: Yes Status: Acute Comment: Sugars are under fair control. Continue lantus 25 units SQ daily. (6) CKD (chronic kidney disease) stage 3, GFR 30-59 ml/min Current Visit: Yes Status: Acute Code(s): N18.3 - CHRONIC KIDNEY DISEASE, STAGE 3 (MODERATE) SNOMED Code(s): 157260977 Comment: Creatinine is stable. Monitor intermittently. (7) COPD (chronic obstructive pulmonary disease) Current Visit: Yes Status: Acute Code(s): J44.9 - CHRONIC OBSTRUCTIVE PULMONARY DISEASE, UNSPECIFIED SNOMED Code(s): 21518467 Comment: Stable- no signs of exacerbation. Monitor. (8) DVT prophylaxis Current Visit: Yes Status: Acute Code(s): XPN0346 - SNOMED Code(s): 226122650 Comment: SCDs only secondary to intracerebral hemorrhage (9) DNR (do not resuscitate) Current Visit: Yes Status: Acute
[2016-08-19] MEDS: KCL 20 MEQ/100 ML IVPREMIX* 20 MEQ/100 ML BAG IV SCH ×2 (15:54→21:37)
[2016-08-19] MEDS: cefTRIAXone VIAL(*) 1,000 MG in NS 0.9% 50 ML* 50 ML IVPB SCH (17:32)
[2016-08-19] MEDS: Insulin GLARGINE(*) 1 UNITS UNIT SUBCUT SCH (21:33)
[2016-08-20] MEDS: hydrALAZINE IV* 20 MG/ML VIAL IV SLOW PU PRN ×3 (00:50→20:38)
[2016-08-20] MEDS: Insulin LISPRO* 1 UNITS UNIT SUBCUT SCH ×4 (02:51→20:20)
[2016-08-20] MEDS: Pantoprazole IV* 40 MG IV SCH (08:49)
[2016-08-20] MEDS: NS 0.9% 1000 ML* 1,000 ML IV SCH (09:43)
--- NOTE | 2016-08-20 15:23 | PN ---
Subjective Date of Service: 08/20/16 Interval History: HOSPITALIST PROGRESS NOTE Patient seen and examined at bedside. As per , he's much more awake today, speaking a few words. Said "I love you " earlier. Tolerating diet well so far. Family History: Unchanged from Admission Social History: Unchanged from Admission Past Medical History: Unchanged from Admission Objective Active Medications: Acetaminophen (Tylenol Supp*) 650 mg [place] Q6H PRN PRN Reason: FEVER/PAIN Last Admin: 08/19/16 21:43 Dose: 650 mg Albuterol (Ventolin 2.5 Mg/3 Ml Neb.Shelia*) 2.5 mg INH Q2H PRN PRN Reason: SOB/WHEEZING Hydralazine HCl (Apresoline Iv*) 10 mg IV SLOW PU Q4H PRN PRN Reason: SBP >160 Last Admin: 08/20/16 08:50 Dose: 10 mg Ceftriaxone Sodium 1,000 mg/ (Sodium Chloride) 50 mls @ 200 mls/hr IVPB Q24H [facility] Last Admin: 08/19/16 17:32 Dose: 200 mls/hr Sodium Chloride (Ns 0.9% 1000 Ml*) 1,000 mls @ 75 mls/hr IV PER RATE [facility] Last Admin: 08/20/16 09:43 Dose: 75 mls/hr Insulin Glargine (Lantus(*)) 25 units SUBCUT 2100 [facility] Last Admin: 08/19/16 21:33 Dose: 25 units Insulin Human Lispro (Humalog*) 0 units SUBCUT ACHS [facility] PRN Reason: Protocol Nystatin (Nystatin Oint*) 1 applic TOPICAL TID PRN PRN Reason: RASH Ondansetron HCl (Zofran Inj*) 4 mg IV Q6H PRN PRN Reason: NAUSEA Pantoprazole Sodium (Protonix Iv*) 40 mg IV DAILY [facility] Last Admin: 08/20/16 08:49 Dose: 40 mg Prochlorperazine Edisylate (Compazine Inj*) 10 mg IV Q6H PRN PRN Reason: NAUSEA 08/20/16 08/20/16 08/20/16 05:38 08:00 08:07 Temperature 98.0 F Pulse Rate 87 92 Respiratory 18 20 22 Rate Blood Pressure 199/93 (mmHg) O2 Sat by Pulse 96 100 Oximetry 08/20/16 08/20/16 10:26 14:00 Temperature 98.6 F Pulse Rate 88 99 Respiratory 18 Rate Blood Pressure 146/51 (mmHg) O2 Sat by Pulse 99 Oximetry Oxygen Devices in Use Now: None Appearance: Elderly gentleman lying in bed in NAD. Eyes: No Scleral Icterus Ears/Nose/Mouth/Throat: Mucous Membranes Moist Neck: Trachea Midline Respiratory: Symmetrical Chest Expansion and Respiratory Effort, Clear to Auscultation Cardiovascular: - - Normal S1 and S2, irregularly irregular Abdominal: NL Sounds; No Tenderness; No Distention Neurological: - - Alert and awake, oriented to self only, left hemiparesis Lines/Tubes/Other Access: Clean, Dry and Intact Peripheral IV Nutrition: Taking PO's Result Diagrams: 08/19/16 05:06 08/19/16 05:06 Assess/Plan/Problems-Billing Assessment: Mr Loera is an 81 yo M who has a h/o past CVA, TIA, afib on coumadin, CAD, carotid stenosis, HTN, type II DM, diabetic neuropathy, stage III CKD, ELISABETH and BPH with urinary retention and chronic downey who presented to the ER with c/o nausea, vomiting and unresponsiveness. He was found to have a large R frontal intracerebral hemorrhage. - Patient Problems (1) Right-sided intracerebral hemorrhage Comment: - Patient is more alert this AM, interacting with . - Tolerating pureed textures with pudding thickened liquids. - Continue gentle IVF until he is taking enough by mouth. - D/w and daughter - will look into placement for rehab at this point as he seems to be improving and may be able to return to his original situation at home. 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 - PT/OT evaluations. - Anticoagulation contraindicated. (2) Atrial fibrillation Comment: - Rate is controlled. - Anticoagulation contraindicated in the setting of ICH. (3) Catheter-associated urinary tract infection Comment: - Urine culture grew corynebacterium striatum. - Continue ceftriaxone #6/7. (4) Elevated troponin Comment: - Etiology unclear - may be secondary to demand ischemia vs Afib. - EKG showed no ischemic changes and he has no complaints of chest pain. - No further w/u at this time. (5) HTN (hypertension) Comment: - BP is trending up - will resume Losartan at 25mg/day and hydralazine prn SBP>160. (6) Type II diabetes mellitus Comment: - Monitor FS now PO intake is increasing. - Continue Lantus 25 units and Lispro SS. (7) CKD (chronic kidney disease) stage 3, GFR 30-59 ml/min Comment: - Stable. - Monitor intermittently. (8) COPD (chronic obstructive pulmonary disease) Comment: - Stable- no signs of exacerbation. (9) DVT prophylaxis Comment: - Pharmacological prophylaxis contraindicated in the setting of intracerebral hemorrhage. - SCDs only. (10) DNR (do not resuscitate) Status and Disposition: Inpatient.
[2016-08-20] MEDS: Acetaminophen SUPP* 650 MG SUPP PR PRN (17:06)
[2016-08-20] MEDS: cefTRIAXone VIAL(*) 1,000 MG in NS 0.9% 50 ML* 50 ML IVPB SCH (17:06)
[2016-08-20] MEDS: Insulin GLARGINE(*) 1 UNITS UNIT SUBCUT SCH (20:20)
[2016-08-21] MEDS: hydrALAZINE IV* 20 MG/ML VIAL IV SLOW PU PRN ×2 (00:16→04:22)
[2016-08-21] MEDS: NS 0.9% 1000 ML* 1,000 ML IV SCH (00:16)
[2016-08-21] MEDS ORDERED: Labetalol IV* 5 MG/ML 20 ML VIAL IV PUSH ONE (05:54)
[2016-08-21 06:17] LABS: BUN/Creatinine Ratio 14.7 (8-20); Calcium 8.6 mg/dL (8.6-10.3); EGFR African American 50.1 (>60)
[2016-08-21] MEDS: Insulin LISPRO* 1 UNITS UNIT SUBCUT SCH ×5 (08:40→21:05)
[2016-08-21] MEDS: Pantoprazole IV* 40 MG IV SCH (08:42)
[2016-08-21] MEDS ORDERED: Losartan TAB* 25 MG PO SCH (09:00)
[2016-08-21] MEDS: KCL 10 MEQ/50 ML IVPREMIX* 10 MEQ/50 ML BAG IV SCH ×4 (10:28→14:51)
[2016-08-21] MEDS: D5W 1000 ML BAG* 1,000 ML IV SCH ×2 (10:40→21:43)
--- NOTE | 2016-08-21 13:36 | PN ---
Subjective Date of Service: 08/21/16 Interval History: HOSPITALIST PROGRESS NOTE Patient seen and examined at bedside. He's napping, but woke up during my visit. Looks very perky, denies pain and is hungry. PO intake is good, but not taking a lot of fluids as he doesn't seem to like the pudding thick texture. Family History: Unchanged from Admission Social History: Unchanged from Admission Past Medical History: Unchanged from Admission Objective Active Medications: Acetaminophen (Tylenol Supp*) 650 mg OR Q6H PRN PRN Reason: FEVER/PAIN Last Admin: 08/20/16 17:06 Dose: 650 mg Albuterol (Ventolin 2.5 Mg/3 Ml Neb.Shelia*) 2.5 mg INH Q2H PRN PRN Reason: SOB/WHEEZING Hydralazine HCl (Apresoline Iv*) 10 mg IV SLOW PU Q4H PRN PRN Reason: SBP >160 Last Admin: 08/21/16 04:22 Dose: 10 mg Ceftriaxone Sodium 1,000 mg/ (Sodium Chloride) 50 mls @ 200 mls/hr IVPB Q24H [facility] Last Admin: 08/20/16 17:06 Dose: 200 mls/hr Dextrose (D5w 1000 Ml Bag*) 1,000 mls @ 100 mls/hr IV PER RATE [facility] Last Admin: 08/21/16 10:40 Dose: 100 mls/hr Insulin Glargine (Lantus(*)) 25 units SUBCUT 2100 [facility] Last Admin: 08/20/16 20:20 Dose: 25 units Insulin Human Lispro (Humalog*) 0 units SUBCUT ACHS [facility] PRN Reason: Protocol Last Admin: 08/21/16 12:37 Dose: 12 unit Losartan Potassium (Cozaar Tab*) 25 mg PO DAILY [facility] Last Admin: 08/21/16 08:42 Dose: 25 mg Nystatin (Nystatin Oint*) 1 applic TOPICAL TID PRN PRN Reason: RASH Ondansetron HCl (Zofran Inj*) 4 mg IV Q6H PRN PRN Reason: NAUSEA Pantoprazole Sodium (Protonix Iv*) 40 mg IV DAILY [facility] Last Admin: 08/21/16 08:42 Dose: 40 mg Prochlorperazine Edisylate (Compazine Inj*) 10 mg IV Q6H PRN PRN Reason: NAUSEA Vital Signs 08/21/16 08/21/16 08/21/16 09:21 11:49 11:50 Temperature 98.4 F Pulse Rate 84 Respiratory 16 Rate Blood Pressure (mmHg) O2 Sat by Pulse 97 97 Oximetry Oxygen Devices in Use Now: None Appearance: Elderly male lying in bed in NAD. Eyes: No Scleral Icterus Ears/Nose/Mouth/Throat: Mucous Membranes Moist Neck: Trachea Midline Respiratory: Symmetrical Chest Expansion and Respiratory Effort, Clear to Auscultation Cardiovascular: RRR - Normal S1 and S2 Abdominal: NL Sounds; No Tenderness; No Distention Extremities: No Edema Neurological: - - AAOx1 (self) Lines/Tubes/Other Access: Clean, Dry and Intact Downey, Clean, Dry and Intact Peripheral IV Nutrition: Taking PO's Result Diagrams: 08/19/16 05:06 08/21/16 05:52 Assess/Plan/Problems-Billing Assessment: Mr Loera is an 81 yo M who has a h/o past CVA, TIA, afib on coumadin, CAD, carotid stenosis, HTN, type II DM, diabetic neuropathy, stage III CKD, ELISABETH and BPH with urinary retention and chronic downey who presented to the ER with c/o nausea, vomiting and unresponsiveness. He was found to have a large R frontal intracerebral hemorrhage. - Patient Problems (1) Right-sided intracerebral hemorrhage Comment: - Patient is more alert this AM, interacting with and daughter. - Tolerating pureed textures with pudding thickened liquids, but liquid intake is poor. - Continue gentle IVF until he is taking more by mouth. - D/w and daughter - will look into placement for rehab at this point as he seems to be improving and may be able to return to his original situation at home. They're aware if he doesn't show significant progress, he's placement may be retirement. - PT/OT evaluations. - Anticoagulation contraindicated. (2) Hypernatremia Comment: - Secondary to mild dehydration. - Continue IVF and encourage PO fluid intake. (3) Atrial fibrillation Comment: - Rate is controlled. - Anticoagulation contraindicated in the setting of ICH. (4) Catheter-associated urinary tract infection Comment: - Urine culture grew corynebacterium striatum. - Continue ceftriaxone #12/20. (5) Elevated troponin Comment: - Etiology unclear - may be secondary to demand ischemia vs Afib. - EKG showed no ischemic changes and he has no complaints of chest pain. - No further w/u at this time. (6) HTN (hypertension) Comment: - BP is better controlled - continue Losartan 25mg/day and hydralazine prn SBP>160. (7) Type II diabetes mellitus Comment: - Monitor FS now PO intake is increasing. - Continue Lantus 25 units and Lispro SS. (8) CKD (chronic kidney disease) stage 3, GFR 30-59 ml/min Comment: - Stable. - Monitor intermittently. (9) COPD (chronic obstructive pulmonary disease) Comment: - Stable- no signs of exacerbation. (10) DVT prophylaxis Comment: - Pharmacological prophylaxis contraindicated in the setting of intracerebral hemorrhage. - SCDs only. (11) DNR (do not resuscitate) Status and Disposition: Inpatient.
[2016-08-21] MEDS ORDERED: Dextrose 50% Syringe 50 ML* 25 GM/50 ML SYRINGE IV PUSH PRN (13:43)
[2016-08-21 16:35] LABS: BUN/Creatinine Ratio 13.5 (8-20); Calcium 7.9 mg/dL (8.6-10.3); EGFR African American 43.6 (>60); EGFR Non-African American 33.9 (>60)
[2016-08-21] MEDS: cefTRIAXone VIAL(*) 1,000 MG in NS 0.9% 50 ML* 50 ML IVPB SCH (17:07)
[2016-08-21] MEDS: Insulin GLARGINE(*) 1 UNITS UNIT SUBCUT SCH (21:05)
[2016-08-22] MEDS: hydrALAZINE IV* 20 MG/ML VIAL IV SLOW PU PRN (00:35)
[2016-08-22] MEDS: D5W 1000 ML BAG* 1,000 ML IV SCH (07:59)
[2016-08-22 08:08] LABS: BUN/Creatinine Ratio 13.3 (8-20); Calcium 8.2 mg/dL (8.6-10.3); EGFR African American 51.5 (>60); EGFR Non-African American 40.1 (>60); Potassium 3.2 mmol/L (3.5-5.0)
[2016-08-22] MEDS: Losartan TAB* 25 MG PO SCH (10:01)
[2016-08-22] MEDS: Potassium Chloride LIQUID* 20 MEQ PACKET PO SCH ×2 (10:04→21:22)
[2016-08-22] MEDS: Pantoprazole IV* 40 MG IV SCH (10:09)
[2016-08-22] MEDS: Insulin LISPRO* 1 UNITS UNIT SUBCUT SCH ×7 (10:13→21:11)
[2016-08-22] MEDS: KCL 10 MEQ/50 ML IVPREMIX* 10 MEQ/50 ML BAG IV SCH ×3 (10:17→14:39)
[2016-08-22] MEDS ORDERED: Insulin LISPRO* 1 UNITS UNIT SUBCUT ONE (14:54)
--- NOTE | 2016-08-22 15:48 | PN ---
Subjective Date of Service: 08/22/16 Interval History: HOSPITALIST PROGRESS NOTE Patient seen and examined at bedside. He is much more alert and awake today, sitting up in bed, reading the newspaper. Offers no complaints. Family History: Unchanged from Admission Social History: Unchanged from Admission Past Medical History: Unchanged from Admission Objective Active Medications: Acetaminophen (Tylenol Supp*) 650 mg VA Q6H PRN PRN Reason: FEVER/PAIN Last Admin: 08/20/16 17:06 Dose: 650 mg Albuterol (Ventolin 2.5 Mg/3 Ml Neb.Shelia*) 2.5 mg INH Q2H PRN PRN Reason: SOB/WHEEZING Dextrose (D50w Syringe 50 Ml*) 12.5 gm IV PUSH .FOR FS < 60 - SS PRN PRN Reason: FS < 60 Hydralazine HCl (Apresoline Iv*) 10 mg IV SLOW PU Q4H PRN PRN Reason: SBP >160 Last Admin: 08/22/16 00:35 Dose: 10 mg Ceftriaxone Sodium 1,000 mg/ (Sodium Chloride) 50 mls @ 200 mls/hr IVPB Q24H [facility] Stop: 08/22/16 21:00 Last Admin: 08/21/16 17:07 Dose: 200 mls/hr Lactated Ringer's (Lactated Ringers 1000 Ml Bag*) 1,000 mls @ 50 mls/hr IV PER RATE [facility] Last Admin: 08/22/16 12:53 Dose: 50 mls/hr Insulin Glargine (Lantus(*)) 25 units SUBCUT 2100 [facility] Last Admin: 08/21/16 21:05 Dose: 25 units Insulin Human Lispro (Humalog*) 0 units SUBCUT ACHS [facility] PRN Reason: Protocol Last Admin: 08/22/16 14:59 Dose: 6 unit Insulin Human Lispro (Humalog*) 0 units SUBCUT AC [facility] PRN Reason: Protocol Last Admin: 08/22/16 15:02 Dose: 8 unit Losartan Potassium (Cozaar Tab*) 50 mg PO DAILY [facility] Last Admin: 08/22/16 10:01 Dose: 50 mg Nystatin (Nystatin Oint*) 1 applic TOPICAL TID PRN PRN Reason: RASH Ondansetron HCl (Zofran Inj*) 4 mg IV Q6H PRN PRN Reason: NAUSEA Pantoprazole Sodium (Protonix Iv*) 40 mg IV DAILY [facility] Last Admin: 08/22/16 10:09 Dose: 40 mg Potassium Chloride (Klor-Con Liquid*) 40 meq PO BID [facility] Last Admin: 08/22/16 10:04 Dose: 40 meq Prochlorperazine Edisylate (Compazine Inj*) 10 mg IV Q6H PRN PRN Reason: NAUSEA Vital Signs 08/22/16 08/22/16 08/22/16 08:01 08:26 15:10 Temperature 98.3 F 98.6 F Pulse Rate 79 79 86 Respiratory 20 19 Rate Blood Pressure 137/71 (mmHg) O2 Sat by Pulse 96 96 98 Oximetry Oxygen Devices in Use Now: None Appearance: Elderly male lying in bed in NAD, reading the newspaper. Eyes: No Scleral Icterus Ears/Nose/Mouth/Throat: Mucous Membranes Moist Neck: Trachea Midline Respiratory: Symmetrical Chest Expansion and Respiratory Effort, Clear to Auscultation Cardiovascular: - - Normal S1 and S2, irregularly irregular Abdominal: NL Sounds; No Tenderness; No Distention Extremities: No Edema Neurological: - - AAOx1 (self), left hemiparesis Lines/Tubes/Other Access: Clean, Dry and Intact Peripheral IV Nutrition: Taking PO's Result Diagrams: 08/19/16 05:06 08/22/16 07:25 Assess/Plan/Problems-Billing Assessment: Mr Loera is an 81 yo M who has a h/o past CVA, TIA, afib on coumadin, CAD, carotid stenosis, HTN, type II DM, diabetic neuropathy, stage III CKD, ELISABETH and BPH with urinary retention and chronic downey who presented to the ER with c/o nausea, vomiting and unresponsiveness. He was found to have a large R frontal intracerebral hemorrhage. - Patient Problems (1) Right-sided intracerebral hemorrhage Comment: - Patient is more alert this AM, interacting with and daughter. - Tolerating pureed textures with pudding thickened liquids, but liquid intake is still poor. Speech pathology follow up today to see if we can progress to honey thick liquids. - Continue gentle IVF until he is taking more by mouth. - D/w and daughter - will look into placement for rehab at this point as he seems to be improving and may be able to return to his original situation at home. 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 - PT/OT evaluations appreciated - received bed offer at [facility]. - Anticoagulation contraindicated. (2) Hypernatremia Comment: - Secondary to mild dehydration - resolved. - Decrease IVF and encourage PO fluid intake. (3) Atrial fibrillation Comment: - Rate is controlled. - Anticoagulation contraindicated in the setting of ICH. (4) Catheter-associated urinary tract infection Comment: - Urine culture grew corynebacterium striatum. - Ceftriaxone #/. - Change downey catheter. (5) Elevated troponin Comment: - Etiology unclear - may be secondary to demand ischemia vs Afib. - EKG showed no ischemic changes and he has no complaints of chest pain. - No further w/u at this time. (6) HTN (hypertension) Comment: - Increase Losartan to 50mg/day and continue hydralazine prn SBP>160. (7) Type II diabetes mellitus Comment: - Monitor FS now PO intake is increasing. - Continue Lantus 25 units and Lispro SS. (8) CKD (chronic kidney disease) stage 3, GFR 30-59 ml/min Comment: - Stable. - Monitor intermittently. (9) COPD (chronic obstructive pulmonary disease) Comment: - Stable- no signs of exacerbation. (10) DVT prophylaxis Comment: - Pharmacological prophylaxis contraindicated in the setting of intracerebral hemorrhage. - SCDs only. (11) DNR (do not resuscitate) Status and Disposition: Inpatient. Anticipate d/c to [facility] in the next 2 days if his fluid PO intake increases.
[2016-08-22] MEDS: cefTRIAXone VIAL(*) 1,000 MG in NS 0.9% 50 ML* 50 ML IVPB SCH (18:11)
[2016-08-22] MEDS: Insulin GLARGINE(*) 1 UNITS UNIT SUBCUT SCH (21:22)
[2016-08-23] MEDS: hydrALAZINE IV* 20 MG/ML VIAL IV SLOW PU PRN (04:01)
[2016-08-23] MEDS: Pantoprazole IV* 40 MG IV SCH (08:53)
[2016-08-23] MEDS: Potassium Chloride LIQUID* 20 MEQ PACKET PO SCH ×2 (08:53→21:37)
[2016-08-23] MEDS: Losartan TAB* 25 MG PO SCH (09:08)
[2016-08-23] MEDS: Insulin LISPRO* 1 UNITS UNIT SUBCUT SCH ×8 (09:26→21:27)
--- NOTE | 2016-08-23 10:28 | PN ---
Subjective Date of Service: 08/23/16 Interval History: pt appears at his baseline. Minimally verbal. Swallow eval from last night : unchanged puree and pudding thick Family History: Unchanged from Admission Social History: Unchanged from Admission Past Medical History: Unchanged from Admission Objective Active Medications: Acetaminophen (Tylenol Supp*) 650 mg OK Q6H PRN PRN Reason: FEVER/PAIN Last Admin: 08/20/16 17:06 Dose: 650 mg Albuterol (Ventolin 2.5 Mg/3 Ml Neb.Shelia*) 2.5 mg INH Q2H PRN PRN Reason: SOB/WHEEZING Dextrose (D50w Syringe 50 Ml*) 12.5 gm IV PUSH .FOR FS < 60 - SS PRN PRN Reason: FS < 60 Lactated Ringer's (Lactated Ringers 1000 Ml Bag*) 1,000 mls @ 50 mls/hr IV PER RATE [facility] Last Admin: 08/23/16 09:26 Dose: 50 mls/hr Insulin Glargine (Lantus(*)) 25 units SUBCUT 2100 [facility] Last Admin: 08/22/16 21:22 Dose: 25 units Insulin Human Lispro (Humalog*) 0 units SUBCUT ACHS [facility] PRN Reason: Protocol Last Admin: 08/23/16 09:26 Dose: 2 unit Insulin Human Lispro (Humalog*) 0 units SUBCUT AC [facility] PRN Reason: Protocol Last Admin: 08/23/16 09:26 Dose: 3 unit Losartan Potassium (Cozaar Tab*) 50 mg PO DAILY [facility] Last Admin: 08/23/16 09:08 Dose: 50 mg Nystatin (Nystatin Oint*) 1 applic TOPICAL TID PRN PRN Reason: RASH Ondansetron HCl (Zofran Inj*) 4 mg IV Q6H PRN PRN Reason: NAUSEA Pantoprazole Sodium (Protonix Iv*) 40 mg IV DAILY [facility] Last Admin: 08/23/16 08:53 Dose: 40 mg Potassium Chloride (Klor-Con Liquid*) 40 meq PO BID [facility] Last Admin: 08/23/16 08:53 Dose: 40 meq Prochlorperazine Edisylate (Compazine Inj*) 10 mg IV Q6H PRN PRN Reason: NAUSEA Vital Signs 08/22/16 08/22/16 08/22/16 15:10 20:00 23:41 Temperature 98.6 F 98.7 F Pulse Rate 86 85 Respiratory 19 20 Rate Blood Pressure 137/71 170/90 (mmHg) O2 Sat by Pulse 98 97 Oximetry 08/23/16 08/23/16 08/23/16 03:45 04:56 07:32 Temperature Pulse Rate 60 Respiratory 20 14 Rate Blood Pressure 168/88 (mmHg) O2 Sat by Pulse 97 Oximetry 08/23/16 08/23/16 07:36 08:01 Temperature 98.6 F Pulse Rate 73 Respiratory 14 18 Rate Blood Pressure (mmHg) O2 Sat by Pulse 98 Oximetry Oxygen Devices in Use Now: None Appearance: 81 yo M, alert, oriented to self, in bed watching TV Eyes: No Scleral Icterus, PERRLA Ears/Nose/Mouth/Throat: NL Teeth, Lips, Gums, Mucous Membranes Moist Neck: NL Appearance and Movements; NL JVP Respiratory: Symmetrical Chest Expansion and Respiratory Effort, Clear to Auscultation Cardiovascular: NL Sounds; No Murmurs; No JVD, - - irregular Abdominal: NL Sounds; No Tenderness; No Distention, No Hepatosplenomegaly Lymphatic: No Cervical Adenopathy Extremities: No Edema, No Clubbing, Cyanosis Skin: No Rash or Ulcers, No Nodules or Sclerosis Neurological: - - L hemiparesis, minimal verbalization Result Diagrams: 08/19/16 05:06 08/22/16 07:25 Additional Lab and Data: Lab Results 08/15/16 08/15/16 08/15/16 Range/Units 04:10 04:10 04:10 INR (Anticoag Therapy) 2.77 H (0.89-1.11) APTT 52.2 H (26.0-36.3) seconds Sodium 129 L (133-145) mmol/L Potassium 3.6 (3.5-5.0) mmol/L Chloride 95 L (101-111) mmol/L Carbon Dioxide 25 (22-32) mmol/L Anion Gap 9 (2-11) mmol/L BUN 21 (6-24) mg/dL Creatinine 1.52 H (0.67-1.17) mg/dL Est GFR ( Amer) 57.0 (>60) Est GFR (Non-Af Amer) 44.3 (>60) BUN/Creatinine Ratio 13.8 (8-20) Glucose 216 H (70-100) mg/dL Lactic Acid 1.7 (0.5-2.0) mmol/L Calcium 9.4 (8.6-10.3) mg/dL Total Bilirubin 0.50 (0.2-1.0) mg/dL AST 16 (13-39) U/L ALT 10 (7-52) U/L Alkaline Phosphatase 117 H (34-104) U/L Troponin I Pending Total Protein 7.1 (6.4-8.9) g/dL Albumin 3.3 (3.2-5.2) g/dL Globulin 3.8 (2-4) g/dL Albumin/Globulin Ratio 0.9 L (1-3) Triglycerides 164 mg/dL Cholesterol 188 mg/dL LDL Cholesterol 124 mg/dL HDL Cholesterol 31.2 mg/dL Microbiology and Other Data: Microbiology 08/15/16 15:00 Urine Culture - Final Urine Corynebacterium Striatum Assess/Plan/Problems-Billing Assessment: Mr Loera is an 81 yo M who has a h/o past CVA, TIA, afib on coumadin, CAD, carotid stenosis, HTN, type II DM, diabetic neuropathy, stage III CKD, ELISABETH and BPH with urinary retention and chronic downey who presented to the ER with c/o nausea, vomiting and unresponsiveness. He was found to have a large R frontal intracerebral hemorrhage. - Patient Problems (1) Right-sided intracerebral hemorrhage Comment: - Tolerating pureed textures with pudding thickened liquids, but liquid intake is still poor. Speech pathology follow up today - Continue gentle IVF until he is taking more by mouth. - D/w a - placement for rehab -possibly tomorrow.[facility] can administer IVF , but via PICC only. will place PICC today. - PT/OT evaluations appreciated - received bed offer at [facility]. - Anticoagulation contraindicated. (2) Atrial fibrillation Comment: - Rate is controlled. - Anticoagulation contraindicated in the setting of ICH. (3) Catheter-associated urinary tract infection Comment: - Urine culture grew corynebacterium striatum. - finished 7 day course on Ceftriaxone on 08/22/16 (4) Elevated troponin Comment: - Etiology unclear - may be secondary to demand ischemia vs Afib. - EKG showed no ischemic changes and he has no complaints of chest pain. - No further w/u at this time. (5) HTN (hypertension) Comment: - Increased Losartan to 50mg/day on 08/22/16. -added metoprolol tartr. on 08/23/16 -d/c hydralazine IV (6) Type II diabetes mellitus Comment: - Monitor FS now PO intake is increasing. - Continue Lantus 25 units and Lispro SS. (7) Hypernatremia Comment: - Secondary to mild dehydration - resolved. - cont IVF and encourage PO fluid intake. (8) CKD (chronic kidney disease) stage 3, GFR 30-59 ml/min Comment: - Stable. - Monitor intermittently. (9) COPD (chronic obstructive pulmonary disease) Comment: - Stable- no signs of exacerbation. (10) DVT prophylaxis Comment: - Pharmacological prophylaxis contraindicated in the setting of intracerebral hemorrhage. - SCDs only. (11) DNR (do not resuscitate) Status and Disposition: Inpatient. Anticipate d/c to [facility] tomorrow.The facility can administer IVF via PICC
--- NOTE | 2016-08-23 12:49 | RAD ---
HISTORY: Right-sided PICC line COMPARISONS: April 18, 2016 VIEWS:1: Single frontal portable view of the chest at 12:13 PM FINDINGS: LINES AND TUBES: There is a right-sided PICC line with with the tip overlying the superior vena cava. CARDIOMEDIASTINAL SILHOUETTE: The cardiomediastinal silhouette is normal for portable technique. PLEURA: There are small bilateral pleural effusions LUNG PARENCHYMA: The lung volumes are low ABDOMEN: The upper abdomen is clear. There is no subphrenic gas. BONES AND SOFT TISSUES: No bone or soft tissue abnormalities are noted. IMPRESSION: 1. LINES AND TUBES ABOVE. 2. LOW LUNG VOLUMES. 3. SMALL BILATERAL PLEURAL EFFUSIONS
[2016-08-23] MEDS: Metoprolol Tartrate TAB* 25 MG PO SCH ×2 (12:50→21:32)
[2016-08-23] MEDS: Insulin GLARGINE(*) 1 UNITS UNIT SUBCUT SCH (21:30)
[2016-08-24 06:58] LABS: BUN/Creatinine Ratio 11.4 (8-20); Calcium 8.3 mg/dL (8.6-10.3); EGFR African American 48.2 (>60); EGFR Non-African American 37.4 (>60)
[2016-08-24] MEDS: Insulin LISPRO* 1 UNITS UNIT SUBCUT SCH ×7 (09:50→22:00)
[2016-08-24] MEDS: Losartan TAB* 25 MG PO SCH (09:51)
[2016-08-24] MEDS: Metoprolol Tartrate TAB* 25 MG PO SCH ×2 (09:51→22:23)
[2016-08-24] MEDS: Pantoprazole IV* 40 MG IV SCH (09:52)
--- NOTE | 2016-08-24 10:05 | PN ---
Subjective Date of Service: 08/24/16 Interval History: HOSPITALIST PROGRESS NOTE Patient seen and examined at bedside. He offers no complaints today. Family History: Unchanged from Admission Social History: Unchanged from Admission Past Medical History: Unchanged from Admission Objective Active Medications: Acetaminophen (Tylenol Supp*) 650 mg [place] Q6H PRN PRN Reason: FEVER/PAIN Last Admin: 08/20/16 17:06 Dose: 650 mg Albuterol (Ventolin 2.5 Mg/3 Ml Neb.Shelia*) 2.5 mg INH Q2H PRN PRN Reason: SOB/WHEEZING Dextrose (D50w Syringe 50 Ml*) 12.5 gm IV PUSH .FOR FS < 60 - SS PRN PRN Reason: FS < 60 Heparin Sodium (Porcine) (Heparin Flush Picc/Ml/Cvc(*)) 0 ml IV FLUSH 0600, 1800 [facility] PRN Reason: Protocol Last Admin: 08/24/16 07:30 Dose: Not Given Lactated Ringer's (Lactated Ringers 1000 Ml Bag*) 1,000 mls @ 50 mls/hr IV PER RATE [facility] Last Admin: 08/24/16 06:29 Dose: 50 mls/hr Insulin Glargine (Lantus(*)) 25 units SUBCUT 2100 [facility] Last Admin: 08/23/16 21:30 Dose: 25 units Insulin Human Lispro (Humalog*) 0 units SUBCUT ACHS [facility] PRN Reason: Protocol Last Admin: 08/24/16 09:50 Dose: 2 units Insulin Human Lispro (Humalog*) 0 units SUBCUT AC [facility] PRN Reason: Protocol Last Admin: 08/23/16 18:17 Dose: 4 unit Losartan Potassium (Cozaar Tab*) 50 mg PO DAILY [facility] Last Admin: 08/24/16 09:51 Dose: 50 mg Metoprolol Tartrate (Lopressor Tab*) 12.5 mg PO Q12HR [facility] Last Admin: 08/24/16 09:51 Dose: 12.5 mg Nystatin (Nystatin Oint*) 1 applic TOPICAL TID PRN PRN Reason: RASH Ondansetron HCl (Zofran Inj*) 4 mg IV Q6H PRN PRN Reason: NAUSEA Pantoprazole Sodium (Protonix Iv*) 40 mg IV DAILY [facility] Last Admin: 08/24/16 09:52 Dose: 40 mg Potassium Chloride (Klor-Con Liquid*) 40 meq PO BID [facility] Last Admin: 08/23/16 21:37 Dose: 40 meq Prochlorperazine Edisylate (Compazine Inj*) 10 mg IV Q6H PRN PRN Reason: NAUSEA Vital Signs 08/23/16 08/24/16 08/24/16 21:25 00:24 07:42 Temperature 98.1 F 98.1 F Pulse Rate 63 66 74 Respiratory 16 Rate Blood Pressure 153/64 139/61 155/69 (mmHg) O2 Sat by Pulse 95 95 Oximetry Oxygen Devices in Use Now: None Appearance: Pleasant elderly male lying in bed in NAD. Eyes: No Scleral Icterus Ears/Nose/Mouth/Throat: Mucous Membranes Moist Neck: Trachea Midline Respiratory: Symmetrical Chest Expansion and Respiratory Effort, Clear to Auscultation Cardiovascular: - - Normal S1 and S2, irregularly irregular Abdominal: NL Sounds; No Tenderness; No Distention Neurological: - - AAOx1 (self), left hemiparesis Lines/Tubes/Other Access: Clean, Dry and Intact PICC Line Nutrition: Taking PO's Result Diagrams: 08/19/16 05:06 08/24/16 06:27 Assess/Plan/Problems-Billing Assessment: Mr Loera is an 81 yo M who has a h/o past CVA, TIA, afib on coumadin, CAD, carotid stenosis, HTN, type II DM, diabetic neuropathy, stage III CKD, ELISABETH and BPH with urinary retention and chronic downey who presented to the ER with c/o nausea, vomiting and unresponsiveness. He was found to have a large R frontal intracerebral hemorrhage. - Patient Problems (1) Right-sided intracerebral hemorrhage Comment: - Tolerating pureed textures with pudding thickened liquids. - Continue gentle IVF until he is taking more fluids by mouth. - [facility] can administer IVF, PICC was placed 08/23/16. - PT/OT evaluations appreciated. - Received bed offer at [facility] but they won't be able to take him until 08/26/16. - Anticoagulation contraindicated. (2) Hypernatremia Comment: - Secondary to mild dehydration - resolved. - Continue gentle IVF and encourage PO fluid intake. (3) Atrial fibrillation Comment: - Rate is controlled. - Anticoagulation contraindicated in the setting of ICH. (4) Catheter-associated urinary tract infection Comment: - Urine culture grew corynebacterium striatum. - Finished 7 day course on Ceftriaxone on 08/22/16 and downey changed the same date. (5) Elevated troponin Comment: - Etiology unclear - may be secondary to demand ischemia vs Afib. - EKG showed no ischemic changes and he has no complaints of chest pain. - No further w/u at this time. (6) HTN (hypertension) Comment: - Continue Losartan 50mg/day and monitor. (7) Type II diabetes mellitus Comment: - Monitor FS now PO intake is increasing. - Continue Lantus 25 units and Lispro SS. (8) CKD (chronic kidney disease) stage 3, GFR 30-59 ml/min Comment: - Stable. (9) COPD (chronic obstructive pulmonary disease) Comment: - Stable- no signs of exacerbation. (10) DVT prophylaxis Comment: - Pharmacological prophylaxis contraindicated in the setting of intracerebral hemorrhage. - SCDs only. (11) DNR (do not resuscitate) Status and Disposition: Inpatient. Anticipate d/c to [facility] 08/26/16.
--- NOTE | 2016-08-24 11:19 | DS ---
DISCHARGE SUMMARY: DATE OF ADMISSION: 08/15/16 DATE OF DISCHARGE: 08/24/16 PRIMARY CARE PROVIDER: Dr. Nam Sierra DISCHARGE DIAGNOSES: 1. Rights-sided intracerebral hemorrhage. 2. Hypernatremia. 3. Atrial fibrillation. 4. Catheter-associated urinary tract infection, present on admission. 5. Elevated troponin. 6. Hypertension. 7. Type 2 diabetes. 8. Chronic kidney disease, stage 3. 9. Chronic obstructive pulmonary disease. 10. History of prior left cerebrovascular accident in September 2015. 11. Transient ischemic attack. 12. Coronary artery disease. 13. Carotid stenosis. 14. Diabetic neuropathy. 15. Obstructive sleep apnea. 16. Spinal stenosis. MEDICATION LIST: 1. MiraLAX 8.5 g p.o. daily. 2. Docusate 100 mg p.o. b.i.d. 3. Nystatin 100,000 units topical to rash areas t.i.d. 4. Albuterol HFA 2 puffs inhaled t.i.d. as needed for shortness of breath. 5. Ranitidine 75 mg p.o. b.i.d. 6. Potassium chloride 10 mEq p.o. b.i.d. with meals. 7. Losartan 100 mg p.o. daily. 8. Lactated Ringer's 50 mL an hour IV continuously. 9. Lantus 25 units subcutaneously daily. 10. Lispro sliding scale as follows: Fingerstick 150 to 199 - 3 units; 200 to 250 - 3 units; 251 to 300 - 6 units; 301 to 350 - 9 units; 351 to 400 - 12 units ; greater than 400, call MD. 11. Heparin flush with 1 mL of 10 units per mL heparin per unused lumen for intermittent infusion, flush with 10 mL of NS before or after and then 1 mL of 10 units per mL heparin flush. For blood draw, before flush with 10 mL of NS, discard 5 mL of blood, take blood sample and after flush with 20 mL normal saline, followed by 1 mL, 10 units per mL, heparin flush. 12. Acetaminophen suppository 650 mg per rectum q.6 hours p.r.n. pain or fever. 13. Oxycodone 2.5mg p.o. q.4 hours p.r.n. pain, maximum 10mg/day, hold for signs of sedation. HOSPITAL COURSE: Mr. Loera is an 81-year-old male with a past medical history as stated above, that presented to the emergency room on 08/15/16 after being found unresponsive and vomiting. For more details about his presentation, I refer you to his history and physical. Initial CT of the brain without contrast showed a right frontal intraaxial hemorrhage measuring 3.5 cm, associated with small amount of vasogenic edema. The findings were discussed with family and the patient was made do not resuscitate, do not intubate. His warfarin was reversed, but the family was warned that his prognosis was poor. A followup CT was performed and it showed a solitary 3.4 cm diameter acute or subacute intraaxial hemorrhage at the right frontal lobe, without significant change compared with his prior CT. Consider hypertension or amyloid angiopathy as probable etiologies for the hemorrhage. There is mild region of sulcal effacement, as well as 4 mm leftward midline shift at the level of the septum pellucidum, but no signs of downward herniation. The patient was seen in consultation by Neurosurgery (Dr. Ventura) and the impression was that there was no recommendation for surgery on this patient. He was also seen in consultation by Neurology (Dr. Callahan). His impression was that the patient had a primary hypertensive hemorrhage and that his prognosis was very poor. He did not think that the patient was having seizures. The patient's reported that he had a severe upper extremity tremor and now he had hemiparesis on the left side. So, Dr. Callahan felt that his severe right-sided tremor was probably aggravated by autonomic outflow associated with his brain hemorrhage. He did not recommend anticonvulsants. Another CT of the brain was performed on 08/18/16 and it showed no change in the right frontal lobe intraparenchymal subacute hemorrhage. The patient's mental status started to improve slowly. He became more awake to the point that he was able to verbalize a couple of words with his family. He was seen in consultation by Speech Pathology and his diet was advanced to a pureed texture diet with pudding-thick liquids, but his fluid intake was poor. The patient developed hypernatremia, likely secondary to dehydration, and he has been maintained with IV fluids. He was followed by Speech Pathology, but unfortunately we were not able to advance his consistency, so he continues to be on pudding-thick liquids and his oral fluid intake is still poor. So, upon his transfer to the intermediate, he will still need some maintenance IV fluids. A PICC line was placed and Cristofer Harrison has the capabilities to continue this gentle IV hydration. I believe, as his swallow function improves, he will be able to have may be nectar or honey-thick liquids, and he may be able to drink more, and at that point his IV fluids can probably be discontinued. Initially, on admission, there was concern for possible aspiration pneumonia, but this was not confirmed. The patient did have a urinary tract infection present on admission, associated with his chronic Payton catheter. Urine culture grew Corynebacterium striatum and he was treated with 7 days of ceftriaxone, and a new Payton catheter was placed on 08/22/16. The patient's blood pressure was elevated on admission and this was controlled, during the hospital stay, with losartan. Metoprolol had been added briefly, but I believe at this point it is not needed and if his numbers trend up again, I believe his losartan dose can be increased. The patient's glucose has been well controlled with his regimen of Lantus and lispro sliding scale. With his progressive improvement his family was interested in rehabilitation with hopes that he may be able to return home. Before this episode, he was already a Annie lift at home and his was providing most of his care. As he continues to improve slowly, I believe he may be able to return to that baseline prior to admission. Although his overall prognosis considering his diagnosis and comorbidities is still poor, he is slowly, but surely, making progress during his hospital stay. The patient's heart rate has been controlled even off metoprolol, so I believe, at this point a rate controlling agent is not indicated. Anticoagulation was discontinued and it is contraindicated now in the setting of this intracerebral hemorrhage. On admission, the patient had elevation of troponins with the highest one being 0.13. This was felt to be secondary to increased demand in the setting of AFib and no further workup was pursed at this time. The patient is medically stable for discharge today. PHYSICAL EXAMINATION: Vital Signs: Temperature 98.1, heart rate is 65, respiratory rate 16, oxygen saturation 96% on room air, blood pressure 139/61. General: The patient is a pleasant elderly male, lying in bed, in no acute distress. CVS: Normal S1, S2. Irregularly irregular. Chest: Breath sounds bilaterally decreased in bases, but no added sounds. Abdomen: Soft, nontender , nondistended. Bowel sounds are present. Extremities: No edema. Neuro: The patient is alert and awake, oriented to self, can answer simple yes and no questions, and he has left hemiparesis. DIET: Heart-healthy, consistent carb diet, with pureed texture and pudding- thick liquids. ACTIVITIES: Continue PT, OT, and Speech Pathology as tolerated. DISPOSITION: To [facility]. STATUS WHILE IN THE HOSPITAL: Inpatient. CODE STATUS: Do not resuscitate. Please keep in mind that this is summarized version of this patient's complex and prolonged hospital stay. If you need more information, please feel free to call me at [phone] or please obtain the full medical records. TIME SPENT: Approximately 45 minutes were spent to complete this discharge. CC: Dr. Nam Houser* [id number]/CPS #: [id number]
[2016-08-24] MEDS: Potassium Chloride LIQUID* 20 MEQ PACKET PO SCH ×2 (13:24→22:23)
[2016-08-24] MEDS: Insulin GLARGINE(*) 1 UNITS UNIT SUBCUT SCH (22:07)
[2016-08-25] MEDS: Insulin LISPRO* 1 UNITS UNIT SUBCUT SCH ×9 (07:53→20:56)
[2016-08-25] MEDS: Pantoprazole IV* 40 MG IV SCH (08:49)
[2016-08-25] MEDS: Losartan TAB* 25 MG PO SCH ×2 (08:49→09:04)
[2016-08-25] MEDS: Potassium Chloride LIQUID* 20 MEQ PACKET PO SCH ×2 (08:49→20:55)
[2016-08-25] MEDS: Metoprolol Tartrate TAB* 25 MG PO SCH ×2 (08:50→20:57)
[2016-08-25] MEDS: Acetaminophen SUPP* 650 MG SUPP PR PRN (12:05)
--- NOTE | 2016-08-25 16:44 | PN ---
Subjective Date of Service: 08/25/16 Interval History: HOSPITALIST PROGRESS NOTE Patient seen and examined at bedside. Offers no complaints. Tolerating diet, being fed by his . Family History: Unchanged from Admission Social History: Unchanged from Admission Past Medical History: Unchanged from Admission Objective Active Medications: Acetaminophen (Tylenol Supp*) 650 mg DC Q6H PRN PRN Reason: FEVER/PAIN Last Admin: 08/25/16 12:05 Dose: 650 mg Albuterol (Ventolin 2.5 Mg/3 Ml Neb.Shelia*) 2.5 mg INH Q2H PRN PRN Reason: SOB/WHEEZING Dextrose (D50w Syringe 50 Ml*) 12.5 gm IV PUSH .FOR FS < 60 - SS PRN PRN Reason: FS < 60 Heparin Sodium (Porcine) (Heparin Flush Picc/Ml/Cvc(*)) 0 ml IV FLUSH 0600, 1800 [facility] PRN Reason: Protocol Last Admin: 08/25/16 05:10 Dose: Not Given Lactated Ringer's (Lactated Ringers 1000 Ml Bag*) 1,000 mls @ 50 mls/hr IV PER RATE [facility] Last Admin: 08/24/16 06:29 Dose: 50 mls/hr Insulin Glargine (Lantus(*)) 25 units SUBCUT 2100 [facility] Last Admin: 08/24/16 22:07 Dose: 25 units Insulin Human Lispro (Humalog*) 0 units SUBCUT ACHS [facility] PRN Reason: Protocol Last Admin: 08/25/16 14:16 Dose: 6 units Insulin Human Lispro (Humalog*) 0 units SUBCUT AC [facility] PRN Reason: Protocol Last Admin: 08/25/16 14:16 Dose: Not Given Losartan Potassium (Cozaar Tab*) 100 mg PO DAILY [facility] Last Admin: 08/25/16 09:04 Dose: 100 mg Metoprolol Tartrate (Lopressor Tab*) 12.5 mg PO Q12HR [facility] Last Admin: 08/25/16 08:50 Dose: 12.5 mg Nystatin (Nystatin Oint*) 1 applic TOPICAL TID PRN PRN Reason: RASH Ondansetron HCl (Zofran Inj*) 4 mg IV Q6H PRN PRN Reason: NAUSEA Pantoprazole Sodium (Protonix Iv*) 40 mg IV DAILY [facility] Last Admin: 08/25/16 08:49 Dose: 40 mg Potassium Chloride (Klor-Con Liquid*) 40 meq PO BID [facility] Last Admin: 08/25/16 08:49 Dose: 40 meq Prochlorperazine Edisylate (Compazine Inj*) 10 mg IV Q6H PRN PRN Reason: NAUSEA Vital Signs 08/25/16 08/25/16 08/25/16 03:39 07:47 09:18 Temperature 98.5 F 97.7 F Pulse Rate 61 74 78 Respiratory 24 18 18 Rate Blood Pressure 158/59 182/93 (mmHg) O2 Sat by Pulse 98 99 98 Oximetry Oxygen Devices in Use Now: None Appearance: Elderly gentleman sitting up in bed in NAD. Eyes: No Scleral Icterus Ears/Nose/Mouth/Throat: Mucous Membranes Moist Neck: Trachea Midline Respiratory: Symmetrical Chest Expansion and Respiratory Effort, Clear to Auscultation Cardiovascular: - - Normal S1 and S2, irregularly irregular Neurological: - - Alert and awake, did not talk to me today, left hemiparesis Lines/Tubes/Other Access: Clean, Dry and Intact PICC Line Nutrition: Taking PO's Result Diagrams: 08/19/16 05:06 08/24/16 06:27 Assess/Plan/Problems-Billing Assessment: Mr Loera is an 81 yo M who has a h/o past CVA, TIA, afib on coumadin, CAD, carotid stenosis, HTN, type II DM, diabetic neuropathy, stage III CKD, ELISABETH and BPH with urinary retention and chronic downey who presented to the ER with c/o nausea, vomiting and unresponsiveness. He was found to have a large R frontal intracerebral hemorrhage. - Patient Problems (1) Right-sided intracerebral hemorrhage Comment: - Tolerating pureed textures with pudding thickened liquids. - Continue gentle IVF until he is taking more fluids by mouth. - [facility] can administer IVF, PICC was placed 08/23/16. - PT/OT evaluations appreciated. - Received bed offer at [facility] but they won't be able to take him until 08/26/16. - Anticoagulation contraindicated. (2) Hypernatremia Comment: - Secondary to mild dehydration - resolved. - Continue gentle IVF and encourage PO fluid intake. (3) Atrial fibrillation Comment: - Rate is controlled. - Anticoagulation contraindicated in the setting of ICH. (4) Catheter-associated urinary tract infection Comment: - Urine culture grew corynebacterium striatum. - Finished 7 day course on Ceftriaxone on 08/22/16 and downey changed the same date. (5) Elevated troponin Comment: - Etiology unclear - may be secondary to demand ischemia vs Afib. - EKG showed no ischemic changes and he has no complaints of chest pain. - No further w/u at this time. (6) HTN (hypertension) Comment: - Increase Losartan to 100mg/day and monitor. (7) Type II diabetes mellitus Comment: - Monitor FS now PO intake is increasing. - Continue Lantus 25 units and Lispro SS. (8) CKD (chronic kidney disease) stage 3, GFR 30-59 ml/min Comment: - Stable. (9) COPD (chronic obstructive pulmonary disease) Comment: - Stable- no signs of exacerbation. (10) DVT prophylaxis Comment: - Pharmacological prophylaxis contraindicated in the setting of intracerebral hemorrhage. - SCDs only. (11) DNR (do not resuscitate) Status and Disposition: Inpatient. Anticipate d/c to [facility] 08/26/16.
[2016-08-25] MEDS: Insulin GLARGINE(*) 1 UNITS UNIT SUBCUT SCH (20:55)
[2016-08-26] MEDS ORDERED: oxyCODONE TAB* 5 MG TAB PO PRN (08:26)
[2016-08-26 09:50] VITALS: BP 121/99
[2016-08-26] MEDS: Metoprolol Tartrate TAB* 25 MG PO SCH (10:05)
[2016-08-26] MEDS: Losartan TAB* 25 MG PO SCH (10:05)
[2016-08-26] MEDS: Insulin LISPRO* 1 UNITS UNIT SUBCUT SCH ×2 (10:06→10:07)
[2016-08-26] MEDS: Pantoprazole IV* 40 MG IV SCH (10:06)
[2016-08-26] MEDS: Potassium Chloride LIQUID* 20 MEQ PACKET PO SCH (10:06)
--- NOTE | 2016-08-27 10:11 | DS ---
DISCHARGE SUMMARY: Transfer to [facility]. DATE OF ADMISSION: 08/15/16 DATE OF DISCHARGE: 08/26/16 ADDENDUM: Unfortunately, [facility] could not receive the patient on August 24, so he stayed in the hospital until August 26. No significant changes in his condition. He continues to have difficulty with pudding thick liquids, So we continued his gentle IV hydration. His blood pressure was better controlled with losartan 100 mg. His mental status fluctuates and he is usually more awake when his is present and interacting with him. Otherwise, he had no other significant changes. CC: Dr. Nam Houser* [id number]/CPS #: [id number] MAILE
== END 2016-08-26 11:10 | DRG 64 ==
LOC: EDUNIT# → ED 04:05 → ICU 05:38 → MEDTELE 20:13
PROVIDERS: ADMIT Hospitalist; ATTEND Internal Medicine
PROC: 30233L1 Transfusion of Nonautologous Fresh Plasma into Peripheral Vein, Percutaneous Approach (ICD-10-PCS; 2016-08-15)
PROC: 02HV33Z Insertion of Infusion Device into Superior Vena Cava, Percutaneous Approach (ICD-10-PCS; principal; 2016-08-23)
DX: I61.1 Nontraumatic intracerebral hemorrhage in hemisphere, cortical (principal); G93.6 Cerebral edema; E11.42 Type 2 diabetes mellitus with diabetic polyneuropathy; G81.94 Hemiplegia, unspecified affecting left nondominant side; E87.1 Hypo-osmolality and hyponatremia; I48.91 Unspecified atrial fibrillation; E86.0 Dehydration; T83.511A Infection and inflammatory reaction due to indwelling urethral catheter, initial encounter; N39.0 Urinary tract infection, site not specified; I12.9 Hypertensive chronic kidney disease with stage 1 through stage 4 chronic kidney disease, or unspecified chronic kidney disease; F32.9 Major depressive disorder, single episode, unspecified; Z66 Do not resuscitate; I99.8 Other disorder of circulatory system; B96.89 Other specified bacterial agents as the cause of diseases classified elsewhere; Y84.6 Urinary catheterization as the cause of abnormal reaction of the patient, or of later complication, without mention of misadventure at the time of the procedure; Z88.2 Allergy status to sulfonamides; Z88.0 Allergy status to penicillin; Z88.1 Allergy status to other antibiotic agents; I25.10 Atherosclerotic heart disease of native coronary artery without angina pectoris; E78.5 Hyperlipidemia, unspecified; J45.909 Unspecified asthma, uncomplicated; J44.9 Chronic obstructive pulmonary disease, unspecified; G47.33 Obstructive sleep apnea (adult) (pediatric); M19.90 Unspecified osteoarthritis, unspecified site; Z98.49 Cataract extraction status, unspecified eye; R29.732 NIHSS score 32; E66.9 Obesity, unspecified; Z86.73 Personal history of transient ischemic attack (TIA), and cerebral infarction without residual deficits; N18.3 Chronic kidney disease, stage 3 (moderate); N40.1 Benign prostatic hyperplasia with lower urinary tract symptoms; R33.8 Other retention of urine; Z83.3 Family history of diabetes mellitus; Z68.29 Body mass index [BMI] 29.0-29.9, adult; Z82.49 Family history of ischemic heart disease and other diseases of the circulatory system; I65.29 Occlusion and stenosis of unspecified carotid artery; M48.06 Spinal stenosis, lumbar region; Z79.4 Long term (current) use of insulin
CPT/HCPCS: 36415; 70450; 71010; 80048; 80051; 80053; 80061; 81003; 81015; 83605; 83735; 84484; 85025; 85610; 85730; 86900; 86901; 86927; 87077; 87086; 94760; 97530; A9270-GY; C1751; J0360; J0696; J2405; J3430; J3480; P9017

== ENCOUNTER 2016-08-28 22:24 | Inpatient (IN) | payer MEDICARE ==
[2016-08-29] MEDS: NS 0.9% 1000 ML* 1,000 ML IV SCH ×2 (01:10→19:26)
[2016-08-29 01:22] LABS: Hematocrit 33 % (42-52); Mean Corpuscular HGB Conc 33 g/dl (31-36); Mean Corpuscular Hemoglobin 28 pg (27-31); Mean Corpuscular Volume 85 fL (80-94); Mean Platelet Volume 8 um3 (7.4-10.4); Red Blood Count 3.94 10^6/ul (4.0-5.4); Red Cell Distribution Width 15 % (10.5-15); White Blood Count 9.5 10^3/ul (3.5-10.8)
[2016-08-29 01:35] LABS: Albumin 2.9 g/dL (3.2-5.2); BUN/Creatinine Ratio 9.9 (8-20); C Reactive Protein 32.48 mg/L (< 5.00); Calcium 8.7 mg/dL (8.6-10.3); EGFR African American 40.8 (>60); EGFR Non-African American 31.8 (>60); Globulin 3.7 g/dL (2-4); Potassium 3.9 mmol/L (3.5-5.0); Total Bilirubin 0.9 mg/dL (0.2-1.0); Total Protein 6.6 g/dL (6.4-8.9)
[2016-08-29 01:38] LABS: Urine Bacteria 1+ (Absent); Urine Bilirubin Negative (Negative); Urine Glucose 1+(50 mg/dL) (Negative); Urine Nitrite Negative (Negative)
[2016-08-29 01:40] LABS: Troponin I 0.05 ng/mL (<0.04)
[2016-08-29] MEDS ORDERED: Albuterol HFA INHALER* 8 gm MDI INH PRN (02:18)
[2016-08-29] MEDS ORDERED: oxyCODONE TAB* 5 MG TAB PO PRN (02:18)
[2016-08-29] MEDS ORDERED: Acetaminophen SUPP* 650 MG SUPP PR PRN (02:18)
[2016-08-29] MEDS ORDERED: Nystatin OINT* 15 GM TOPICAL PRN (02:18)
[2016-08-29] MEDS ORDERED: NS 0.9% 1000 ML* 1,000 ML IV SCH (02:30)
--- NOTE | 2016-08-29 02:30 | ED ---
navdeep Moe Timothy, scribed for Yehuda Montgomery MD on 08/28/16 at 2307 . Headache - HPI Summary HPI Summary: Travon Loera is an 81 yo male presenting to [facility] with an intracranial bleed, transferred from [facility] for worsening ICH with midline shift. He was seen here august 15 and had an intracranial bleed. Pt is a DNR. He has not been eating at the detention and had decreased level of responsiveness. At [place] ED, there is no neuroolgy department, so they called Dr. Acuña (ED) and Dr. Collier (neurology) for admission to [facility]. His MHx includes CAD, Afib, coronary stent, HLD, HTN, TIA, CVA, tremors, neuropathy, asthma, CPAP, ulcerative colitis, diverticulosis, BPH, chronic renal failure, chronic UTI, DM , depression. - History Of Current Complaint Stated Complaint: INTRACRANIAL BLEED Time Seen by Provider: 08/28/16 23:00 Hx Obtained From: Patient, EMS Onset/Duration: Sudden Onset, Started weeks ago Timing: Constant Associated Signs And Symptoms: Other (Noted In Comments) - loss of appetite, decreased responsiveness - Allergies/Home Medications Allergies/Adverse Reactions: Allergies Allergy/AdvReac Type Severity Reaction Status Date / Time Nitrofurantoin Allergy Unknown Verified 08/15/16 05:26 Reaction Details Penicillins Allergy Hives Verified 08/15/16 05:26 Sulfa Antibiotics Allergy Rash And Verified 08/15/16 05:26 Itching PMH/Surg Hx/FS Hx/Imm Hx Endocrine/Hematology History: Reports: Hx Anticoagulant Therapy - warfarin, Hx Diabetes - neuropathy Cardiovascular History: Reports: Hx Coronary Artery Disease, Hx Hypercholesterolemia, Hx Hypertension, Other Cardiovascular Problems/Disorders - "leaky valve" Denies: Hx Pacemaker/ICD Respiratory History: Reports: Hx Asthma, Hx Chronic Obstructive Pulmonary Disease (COPD), Hx Sleep Apnea - Uses C-Pap at home GI History: Reports: Hx Diverticulosis, Other GI Disorders - elective colectomy with resection History: Reports: Hx Benign Prostatic Hyperplasia, Hx Chronic Renal Failure, Other Problems/Disorders - chronic UTI, penile stricture Musculoskeletal History: Reports: Hx Arthritis Sensory History: Reports: Hx Contacts or Glasses Denies: Hx Hearing Aid Opthamlomology History: Reports: Hx Contacts or Glasses Neurological History: Reports: Hx Transient Ischemic Attacks (TIA), Other Neuro Impairments/Disorders - Tremors, neuropathy Psychiatric History: Reports: Hx Depression Denies: Hx Panic Disorder - Surgical History Surgery Procedure, Year, and Place: cataract removal 2011, open lapararomy resection sigmoid/descending colon 2011, Hx Anesthesia Reactions: No - Immunization History Date of Tetanus Vaccine: up to date Date of Influenza Vaccine: 2014 Infectious Disease History: Unable to Obtain/Confirm Infectious Disease History: Denies: Traveled Outside the [place] in Last 30 Days - Social History Alcohol Use: None Hx Substance Use: No Substance Use Type: Reports: None Hx Tobacco Use: No Smoking Status (MU): Never Smoked Tobacco Review of Systems Constitutional: Other - decreased responsiveness Eyes: Negative ENT: Negative Cardiovascular: Negative Respiratory: Negative Gastrointestinal: Other - loss of appetite Genitourinary: Negative Musculoskeletal: Negative Skin: Negative Positive: Headache Psychological: Normal All Other Systems Reviewed And Are Negative: Yes Physical Exam Triage Information Reviewed: Yes Vital Signs On Initial Exam: Initial Vitals BP 183/87 08/28/16 22:37 Vital Signs Reviewed: Yes Appearance: Positive: No Pain Distress, Ill-Appearing - minimally responsive Skin: Positive: Warm, Dry, Pale Head/Face: Positive: Normal Head/Face Inspection Eyes: Positive: Other: - eyes are open ENT: Positive: Other - oral mucosa dry Neck: Positive: Supple, Nontender Respiratory/Lung Sounds: Positive: Clear to Auscultation, Breath Sounds Present Cardiovascular: Positive: RRR, Pulses are Symmetrical in both Upper and Lower Extremities Bowel Sounds: Positive: Present Neurological: Negative: Alert, Oriented to Person Place, Time Psychiatric: Positive: Other - Pt is minimally responsive Diagnostics - Vital Signs Vital Signs Temp Pulse Resp BP Pulse Ox 08/28/16 22:40 98.2 F 76 22 183/87 95 08/28/16 22:39 76 95 08/28/16 22:37 183/87 - Laboratory Lab Results: Lab Results 08/29/16 08/29/16 08/29/16 Range/Units 01:04 01:04 01:04 WBC 9.5 (3.5-10.8) 10^3/ul RBC 3.94 L (4.0-5.4) 10^6/ul Hgb 11.0 L (14.0-18.0) g/dl Hct 33 L (42-52) % MCV 85 (80-94) fL MCH 28 (27-31) pg MCHC 33 (31-36) g/dl RDW 15 (10.5-15) % Plt Count 184 (150-450) 10^3/ul MPV 8 (7.4-10.4) um3 Neut % (Auto) 80.4 (38-83) % Lymph % (Auto) 10.8 L (25-47) % [place] % (Auto) 5.8 (1-9) % Eos % (Auto) 2.5 (0-6) % Baso % (Auto) 0.5 (0-2) % Absolute Neuts (auto) 7.6 (1.5-7.7) 10^3/ul Absolute Lymphs (auto) 1.0 (1.0-4.8) 10^3/ul Absolute Monos (auto) 0.5 (0-0.8) 10^3/ul Absolute Eos (auto) 0.2 (0-0.6) 10^3/ul Absolute Basos (auto) 0 (0-0.2) 10^3/ul Absolute Nucleated RBC 0 10^3/ul Nucleated RBC % 0 INR (Anticoag Therapy) 1.15 H (0.89-1.11) APTT 35.8 (26.0-36.3) seconds Sodium 141 (133-145) mmol/L Potassium 3.9 (3.5-5.0) mmol/L Chloride 109 (101-111) mmol/L Carbon Dioxide 24 (22-32) mmol/L Anion Gap 8 (2-11) mmol/L BUN 20 (6-24) mg/dL Creatinine 2.03 H (0.67-1.17) mg/dL Est GFR ( Amer) 40.8 (>60) Est GFR (Non-Af Amer) 31.8 (>60) BUN/Creatinine Ratio 9.9 (8-20) Glucose 123 H (70-100) mg/dL Lactic Acid (0.5-2.0) mmol/L Calcium 8.7 (8.6-10.3) mg/dL Magnesium 2.0 (1.9-2.7) mg/dL Total Bilirubin 0.90 (0.2-1.0) mg/dL AST 21 (13-39) U/L ALT 14 (7-52) U/L Alkaline Phosphatase 107 H (34-104) U/L Troponin I 0.05 H* (<0.04) ng/mL C-Reactive Protein 32.48 H (< 5.00) mg/L B-Natriuretic Peptide ( - 100) pg/mL Total Protein 6.6 (6.4-8.9) g/dL Albumin 2.9 L (3.2-5.2) g/dL Globulin 3.7 (2-4) g/dL Albumin/Globulin Ratio 0.8 L (1-3) Lipase 23 (11.0-82.0) U/L Urine Color Urine Appearance Urine pH (5-9) Ur Specific [place] (1.010-1.030) Urine Protein (Negative) Urine Ketones (Negative) Urine Blood (Negative) Urine Nitrate (Negative) Urine Bilirubin (Negative) Urine Urobilinogen (Negative) Ur Leukocyte Esterase (Negative) Urine WBC (Auto) (Absent) Urine RBC (Auto) (Absent) Urine Bacteria (Absent) Hyaline Casts (Absent) RBC Casts (Absent) Urine Glucose (Negative) 08/29/16 08/29/16 08/29/16 Range/Units 01:04 01:04 01:19 WBC (3.5-10.8) 10^3/ul RBC (4.0-5.4) 10^6/ul Hgb (14.0-18.0) g/dl Hct (42-52) % MCV (80-94) fL MCH (27-31) pg MCHC (31-36) g/dl RDW (10.5-15) % Plt Count (150-450) 10^3/ul MPV (7.4-10.4) um3 Neut % (Auto) (38-83) % Lymph % (Auto) (25-47) % [place] % (Auto) (1-9) % Eos % (Auto) (0-6) % Baso % (Auto) (0-2) % Absolute Neuts (auto) (1.5-7.7) 10^3/ul Absolute Lymphs (auto) (1.0-4.8) 10^3/ul Absolute Monos (auto) (0-0.8) 10^3/ul Absolute Eos (auto) (0-0.6) 10^3/ul Absolute Basos (auto) (0-0.2) 10^3/ul Absolute Nucleated RBC 10^3/ul Nucleated RBC % INR (Anticoag Therapy) (0.89-1.11) APTT (26.0-36.3) seconds Sodium (133-145) mmol/L Potassium (3.5-5.0) mmol/L Chloride (101-111) mmol/L Carbon Dioxide (22-32) mmol/L Anion Gap (2-11) mmol/L BUN (6-24) mg/dL Creatinine (0.67-1.17) mg/dL Est GFR ( Amer) (>60) Est GFR (Non-Af Amer) (>60) BUN/Creatinine Ratio (8-20) Glucose (70-100) mg/dL Lactic Acid 0.9 (0.5-2.0) mmol/L Calcium (8.6-10.3) mg/dL Magnesium (1.9-2.7) mg/dL Total Bilirubin (0.2-1.0) mg/dL AST (13-39) U/L ALT (7-52) U/L Alkaline Phosphatase (34-104) U/L Troponin I (<0.04) ng/mL C-Reactive Protein (< 5.00) mg/L B-Natriuretic Peptide 286 H ( - 100) pg/mL Total Protein (6.4-8.9) g/dL Albumin (3.2-5.2) g/dL Globulin (2-4) g/dL Albumin/Globulin Ratio (1-3) Lipase (11.0-82.0) U/L Urine Color Yellow Urine Appearance Clear Urine pH 6.0 (5-9) Ur Specific [place] 1.013 (1.010-1.030) Urine Protein 2+(100 mg/dl) H (Negative) Urine Ketones 1+ H (Negative) Urine Blood 1+ H (Negative) Urine Nitrate Negative (Negative) Urine Bilirubin Negative (Negative) Urine Urobilinogen Negative (Negative) Ur Leukocyte Esterase Trace H (Negative) Urine WBC (Auto) 2+(11-20/hpf) H (Absent) Urine RBC (Auto) Trace(0-2/hpf) (Absent) Urine Bacteria 1+ H (Absent) Hyaline Casts Present H (Absent) RBC Casts Present H (Absent) Urine Glucose 1+(50 mg/dl) H (Negative) Result Diagrams: 08/29/16 01:04 08/29/16 01:04 Lab Statement: Any lab studies that have been ordered have been reviewed, and results considered in the medical decision making process. Headache Course/Dx - Course Assessment/Plan: TRANSFER FROM [facility] FOR DECREASED LOC. HERE BECAUSE [facility] DOES NOT HAVE NEUROLOGY. ADMIT HOSPITALIST STABLE. - Diagnoses Provider Diagnoses: Altered mental state - Physician Notifications Discussed Care Of Patient With: 2300 - Dr. Torres (hospitalist) - discussed Pt condition, will admit Pt. Discharge - Discharge Plan Condition: Stable Disposition: ADMITTED TO [facility] Discharge Disposition Comment: admitted as transfer from [facility] Referrals: Nam Mena MD [Primary Care Provider] - The documentation as recorded by the navdeep babb Timothy accurately reflects the service I personally performed and the decisions made by me, Yehuda Montgomery MD.
[2016-08-29] MEDS ORDERED: hydrALAZINE IV* 20 MG/ML VIAL IV SLOW PU ONE (02:38)
[2016-08-29] MEDS ORDERED: cefTRIAXone VIAL(*) 1,000 MG in NS 0.9% 50 ML* 50 ML IVPB SCH (03:00)
[2016-08-29] MEDS ORDERED: Dextrose 50% Syringe 50 ML* 25 GM/50 ML SYRINGE IV PUSH PRN (05:03)
--- NOTE | 2016-08-29 07:08 | HP ---
ADMISSION HISTORY AND PHYSICAL: DATE OF ADMISSION: 08/29/16 PRIMARY CARE PROVIDER: Dr. Nam Houser. HEALTHCARE PROXY: His , Flory Loera, or [phone]. CODE STATUS: DNR. Discussed with , JACOBO montalvo. SOURCE OF INFORMATION: History obtained from review of records from [facility], review of records from [facility], and discussion with . RELIABILITY: Fair. CHIEF COMPLAINT: Altered mental status. HISTORY OF PRESENT ILLNESS: This is an 81-year-old male, recent hospital stay at [facility] from 08/15/16 to 08/26/16 with right frontal intra- axial hemorrhage measuring 3.5 cm associated with a small amount of vasogenic edema, but never documented to have midline shift. No surgery was deemed appropriate. The patient was monitored and followed by Neurology. His prognosis was deemed grave, although his bleed remained stable on serial CAT scans and his diet was advanced to pureed texture with pudding-thick liquids, although with consistently poor intake. He was ultimately discharged with a PICC line in place and a Payton in place to [facility] to be continued on gentle IV hydration with suspicion that his swallow function would potentially improve. Additionally, during that hospital stay, there was a concern for possible aspiration pneumonia, which was not confirmed as well as urinary tract infection, which was confirmed with Corynebacterium striatum, status post 7 days of ceftriaxone and replacement of his Payton catheter. It appears that he was not verbal prior to his intracerebral bleed. After his discharge, his indicates that he has essentially been bedridden, nonverbal, has been coughing with food, and there has been concern for aspiration. She does indicate that yesterday, he ate 75% of his breakfast and 50% of his lunch. He did undergo another speech evaluation and was made n.p.o., fluids were discontinued according to his healthcare proxy. His healthcare proxy additionally indicated that after he was made n.p.o., [facility] indicated that they can no longer care for him and directed him to the emergency room. It is unclear if he was directed to [facility] because of his decreased mentation or simply because he could no longer eat and secondary concern for aspiration pneumonia. In either case, family requested transfer to [facility], which accepted him and seen by this author, where he was minimally responsive and unable to participate in interview indicating a change from his baseline, which by no standards was well functioning. CAT scan performed at [facility] indicated a 3 x 2.5 cm parenchymal hematoma in the right parietal lobe. It should be noted our imaging indicates right frontal lobe acute hemorrhage on his previous stay and now report from [place] indicates a similarly sized acute right parietal lobe, also, on the right, associated with [id number] midline shift, but no indication of previously indicated right frontal lobe. Actual images have been delivered to Radiology and are currently being uploaded and unavailable for this author to review. In discussion with the , she was mostly concerned that the patient was unable to eat, and felt this was partly because of [facility]'s inability to sit him up at 90 degrees to eat. While it is unclear if she understands the severity of his diagnosis, she is quite clear that the patient should remain DNR/DNI, she would not opt for a surgery under any circumstance, and is not interested in any type of feeding tubes. 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 MEDICATIONS AT DISCHARGE: Include: 1. MiraLAX 8.5 g p.o. daily. 2. Docusate 100 mg twice daily. 3. Nystatin 100,000 units topically 3 times a day. 4. Albuterol 2 puffs inhaled 3 times a day as needed. 5. Ranitidine 75 mg twice daily. 6. Potassium chloride 10 mEq twice daily with meals. 7. Losartan 100 mg daily. 8. Lactated Ringer's 50 mL running continuously. 9. Lantus 25 units subcu daily. 10. Lispro sliding scale. 11. Acetaminophen 650 mg per rectum every 6 hours as needed. 12. Oxycodone 2.5 mg every 4 hours as needed for pain. ALLERGIES: To MACROBID, PENICILLIN, SULFA ANTIBIOTICS. FAMILY HISTORY: Significant for diabetes, hypertension, hyperlipidemia. SOCIAL HISTORY: No tobacco, alcohol, or illicit's. Has 5 children. REVIEW OF SYSTEMS: Unable to obtain. PHYSICAL EXAMINATION GENERAL: Elderly man, lying at 35 degrees in bed. VITAL SIGNS: In the emergency room, blood pressure 183/87, heart rate 76, respiratory rate is 22, temperature is 98.2. HEENT: Oropharynx is clear and has dry mucous membranes. Sclerae are anicteric. LUNGS: Clear, decreased in bases. HEART: Regular rate and rhythm. No murmurs, rubs, or gallops. ABDOMEN: Soft, nontender, nondistended. EXTREMITIES: Warm, well perfused. Has trace lower extremity edema. NEUROLOGIC: He is A and O x0. His arms are rigid. He withdraws to pain. His pupils are equal, round, and reactive to light. Does not follow commands. He has a Payton placed and a PICC in his right arm that is clean, dry, and intact. LABORATORY DATA: Data reviewed: Urinalysis positive for ketones, blood, leuk esterase, white blood cells, bacteria. Troponin 0.05, less than prior. BUN 20 , creatinine 2.0. Hemoglobin is 11.0, white blood cell count 9.5, platelets 184. ASSESSMENT AND PLAN: This is an 81-year-old man, recently diagnosed right frontal intracerebral bleed thought in the setting of hypertension, discharged to [facility], underwent swallow eval, suspicion for aspiration pneumonia, and sent to [facility], where he was transferred to [facility] with decreased level of consciousness. 1. Altered mental status. There is some discrepancy at this point between the comparison of our CAT scan performed prior to discharge and the one performed today at [facility]. The images have been submitted to Radiology, we are awaiting their upload to our EMR. In either case, the patient's healthcare proxy is very clear they would not want to pursue surgical intervention or aggressive interventions. I discussed the case with Dr. Collier; however, at the time of my discussion, it should be noted I did not recognize the discrepancy between the two scans. In the setting of the midline shift, it was not recommended to initiate steroids at this time. The patient's baseline function was very poor, it does not seem like rapid change and it is gradual worsening since discharge. Certainly, infection including aspiration pneumonia or urinary tract infection are on the differential, especially in the setting of concern for aspiration and previous urinary tract infection with current urinalysis. I will repeat chest film here as well as start ceftriaxone for suspected urinary tract infection. Normal saline at 100 cc per hour for one additional bag. 2. Type 2 diabetes. Decrease Lantus to 10 units, continue sliding scale. 3. Hypertension. Certainly, mental status could be worsening in the setting of hypertension, I do not want to drop the blood pressure too precipitously. We will give 2.5 mg of hydralazine now and follow response and continue oral medications if able to tolerate oral medications. 4. Aspiration pneumonia. Chest x-ray as indicated above, swallow eval. 5. Acute on chronic chronic kidney disease. Crystalloids as indicated above. 6. DVT prophylaxis. SCDs in the setting of intracerebral hemorrhage. 7. Code status. DNR/DNI. CC: Dr. Nam Houser* [id number]/CPS #: [id number] MAILE
[2016-08-29] MEDS: Insulin LISPRO* 1 UNITS UNIT SUBCUT SCH ×3 (07:38→18:59)
--- NOTE | 2016-08-29 07:56 | RAD ---
HISTORY: Aspiration, altered mental status COMPARISONS: August 28, 2016 VIEWS:1: Single frontal portable view of the chest at 3:18 AM FINDINGS: LINES AND TUBES: None. CARDIOMEDIASTINAL SILHOUETTE: The cardiomediastinal silhouette is normal for portable technique. PLEURA: The costophrenic angles are sharp. No pleural abnormalities are noted. LUNG PARENCHYMA: There is confluent alveolar opacification of the left lower lung ABDOMEN: The upper abdomen is clear. There is no subphrenic gas. BONES AND SOFT TISSUES: No bone or soft tissue abnormalities are noted. IMPRESSION: LEFT LOWER LUNG ATELECTASIS VERSUS CONSOLIDATION
[2016-08-29] MEDS: cefTRIAXone VIAL(*) 1,000 MG in NS 0.9% 50 ML* 50 ML IVPB SCH (09:02)
[2016-08-29] MEDS: Potassium Chlor TAB* 10 MEQ TAB.ER PO SCH ×2 (09:12→16:19)
[2016-08-29] MEDS: Docusate CAP* 100 MG PO SCH ×2 (09:12→19:25)
[2016-08-29] MEDS: Polyethylene Glycol 3350* 17 GM PACKET PO SCH (09:13)
[2016-08-29] MEDS: Losartan TAB* 25 MG PO SCH (09:13)
[2016-08-29] MEDS: Famotidine TAB* 20 MG PO SCH ×2 (09:13→19:25)
[2016-08-29] MEDS: Insulin GLARGINE(*) 1 UNITS UNIT SUBCUT SCH (12:42)
[2016-08-29] MEDS ORDERED: levETIRAcetam IV* 1,000 MG in NS 0.9% 100 ML* 100 ML IVPB ONE (13:00)
[2016-08-29] MEDS ORDERED: Dexamethasone IV* 8 MG in NS 0.9% 50 ML* 50 ML IVPB ONE (13:20)
--- NOTE | 2016-08-29 15:00 | RAD ---
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 Additionally, axial diffusion-weighted images were obtained with calculated apparent diffusion coefficients. FINDINGS: The study is limited by patient motion artifact. HEMORRHAGE/INFARCT: There is a 3 x 3.7 x 3.4 cm intraparenchymal hemorrhage of the right frontal lobe. There is associated vasogenic edema. Elsewhere, there is no hemorrhage or acute infarct. MASSES/SHIFT: As noted above, there is a right frontal intraparenchymal hematoma. There is no shift. EXTRA-AXIAL SPACES/MENINGES: There are no extra-axial fluid collections. SULCI AND VENTRICLES: There is diffuse and proportional enlargement of the sulci and ventricles. CEREBRUM: There is extensive elevated T2/FLAIR signal in the periventricular and subcortical white matter. As noted above, there is a 3.7 cm intraparenchymal hematoma the right frontal lobe with associated vasogenic edema. BRAINSTEM: There is elevated signal within the pontine white matter CEREBELLUM: There are no focal parenchymal abnormalities. The cerebellar tonsils are normal in size and position. SELLA: The sella is normal. PINEAL: The pineal region is clear. CP ANGLE/TEMPORAL BONES: The labyrinthine structures are grossly normal. VESSELS: Normal flow-voids are noted within the visualized vertebral vasculature. DIFFUSION ABNORMALITIES: There are no diffusion abnormalities. PARANASAL SINUSES/MASTOIDS: The paranasal sinuses are clear. ORBITS: The orbits are unremarkable. BONES AND SOFT TISSUE: No bone or soft tissue abnormalities are noted. OTHER: None IMPRESSION: 1. LIMITED STUDY. 2. 3.7 CM INTRAPARENCHYMAL HEMATOMA OF THE RIGHT FRONTAL LOBE WITH ASSOCIATED VASOGENIC EDEMA. THERE IS NO SHIFT. 3. DIFFUSE INVOLUTIONAL CHANGE WITH EXTENSIVE CHRONIC SMALL VESSEL ISCHEMIC CHANGES. 4. RECOMMEND FOLLOW-UP IMAGING AFTER RESOLUTION OF THE HEMATOMA TO EXCLUDE UNDERLYING PARENCHYMAL PATHOLOGY
[2016-08-29] MEDS ORDERED: Dexamethasone IV* 4 MG/ML 1 ML (4 MG) ONE (16:05)
--- NOTE | 2016-08-29 21:19 | CONS ---
CONSULTATION REPORT: DATE OF CONSULT: DATE OF DICTATION: 08/29/16 PATIENT OF: Dr. Houser and Dr. Cary. HISTORY OF PRESENT ILLNESS: This is an 81-year-old man, who was transferred from [facility] and was recently admitted from 08/15/16 through with a right frontal hemorrhage associated with small amounts of vasogenic edema. He was followed clinically and was discharged to a [facility] and while at the [facility], they became concerned that he was not able to swallow and was obtunded and so brought him back to [facility] and was transferred to [facility] yesterday. His other recent problems have included urinary tract infection with Corynebacterium striatum, status post ceftriaxone, and he has had possible aspiration pneumonia. He was transferred here. The family knew that there is surgeon available and the family was not interested in surgery. 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 MEDICATIONS: On discharge include: 1. MiraLAX 8.5 daily. 2. Docusate 100 twice a day. 3. Nystatin 100,000 units 3 times a day. 4. Albuterol 2 puffs 3 times a day as needed. 5. Ranitidine 75 twice daily. 6. Potassium chloride 10 mEq daily with meals. 7. Losartan 100 mg daily. 8. Lantus insulin 25 units subcu daily. 9. Lispro sliding scale. 10. Acetaminophen 650 q.6 hours as needed. 11. Oxycodone 2.5 every 4 hours as needed for pain. ALLERGIES: He is allergic to MACROBID, PENICILLIN, SULFA ANTIBIOTICS. FAMILY HISTORY: Significant for diabetes, hypertension, hyperlipidemia. SOCIAL HISTORY: No alcohol or tobacco. He has 5 children. REVIEW OF SYSTEMS: Unable to be obtained. PHYSICAL EXAM: Temperature 98.3, pulse 74, respirations 24, blood pressure 134/ 86. His mental status has fluctuated throughout the course of the day. I had seen him on three separate occasions. One time, he was unresponsive to noxious stim and had somewhat dysconjugate gaze. More recently, he would briefly open his eyes and he would bring his right hand to his face at one point. There is no voluntary movement to his left side. Pupils are 2 mm and reactive. Face: He has had a left facial droop. Reflexes were 2 on the right, 2+ on the left. Toe was upgoing on the left, downgoing on the right. Chest: Clear. Cardiovascular: Regular rate and rhythm. Abdomen is soft with positive bowel sounds. DIAGNOSTIC STUDIES/LAB DATA: I reviewed his CT scan from [place] with Dr. Fowler earlier today and compared it to the prior study from August 15 and August 18. There was concern that there appeared to be increasing edema and he raised a concern of tumor, which is reasonable possibility. We therefore got an MRI scan while we were waiting, gave him IV Decadron. The MRI scan showed essentially unchanged amount of blood. There was edema, but there was also extensive white matter disease and it was hard to tell when one began and one ended. I discussed these films with Dr. Santos and he thinks that most likely this is amyloid angiopathy rather than tumor, but he was not sure and recommended getting a followup study in a few months' time. I think his bleed is lobar and does fit an amyloid angiopathy picture. Other lab studies include a hematocrit of 33, CBC otherwise normal. INR 1.15, PTT 35.8. He has a normal CMP other than a creatinine of 2.03. His glucose was high, 145. He has a C-reactive protein of 32. Rest of CMP was normal. His BNP was 286. His urine had 2+ proteins, present hyaline and rbc casts, bacteria 1+. He has been started on ceftriaxone. IMPRESSION: I discussed at length with the on two separate occasions and then with Dr. Cary that he has bleeding in his brain which is most likely from an amyloid angiopathy rather than tumor. I have not seen him in the past month, so I do not know how much of his exam is changed. Apparently, there has been some worsening. This may be due to something like his urinary tract infection, but it is unclear this may have already been treated. I am therefore also going to get an EEG and ammonia levels tomorrow to see if we can identify other causes for his deterioration. It may be that he is just very compromised and has fluctuations and I think overall his prognosis is poor, although from this recent bleed, there could be significant resolution of the bleeding. His underlying state is nonverbal. We are going to have Social Work involved and Dr. Cary will be speaking to the family in terms of what they want in terms of care. I will be seeing in followup tomorrow. [id number]/[facility] #: [id number] MAILE
[2016-08-30] MEDS: Insulin LISPRO* 1 UNITS UNIT SUBCUT SCH ×4 (01:06→19:16)
[2016-08-30] MEDS: NS 0.9% 1000 ML* 1,000 ML IV SCH (02:06)
[2016-08-30 06:41] LABS: Hematocrit 31 % (42-52); Hemoglobin 10.2 g/dl (14.0-18.0); Mean Corpuscular HGB Conc 33 g/dl (31-36); Mean Corpuscular Hemoglobin 28 pg (27-31); Mean Corpuscular Volume 85 fL (80-94); Mean Platelet Volume 8 um3 (7.4-10.4); Red Blood Count 3.62 10^6/ul (4.0-5.4); Red Cell Distribution Width 16 % (10.5-15)
[2016-08-30 07:02] LABS: Calcium 8.2 mg/dL (8.6-10.3); EGFR African American 38.4 (>60); EGFR Non-African American 29.9 (>60); Potassium 4.5 mmol/L (3.5-5.0)
[2016-08-30] MEDS: cefTRIAXone VIAL(*) 1,000 MG in NS 0.9% 50 ML* 50 ML IVPB SCH (07:54)
[2016-08-30] MEDS: Insulin GLARGINE(*) 1 UNITS UNIT SUBCUT SCH (07:54)
[2016-08-30] MEDS: Potassium Chlor TAB* 10 MEQ TAB.ER PO SCH ×2 (08:23→16:42)
[2016-08-30] MEDS: Docusate CAP* 100 MG PO SCH (08:23)
[2016-08-30] MEDS: Losartan TAB* 25 MG PO SCH (08:24)
[2016-08-30] MEDS: Famotidine TAB* 20 MG PO SCH (08:24)
[2016-08-30] MEDS: Polyethylene Glycol 3350* 17 GM PACKET PO SCH (08:24)
[2016-08-30] MEDS ORDERED: hydrALAZINE IV* 20 MG/ML VIAL IV SLOW PU ONE (11:00)
--- NOTE | 2016-08-30 12:26 | CONSULT ---
Palliative / Hospice Consult Ordering Provider: Isaías Cary - Subjective Code Status: DNR Advance Directives Location: In Chart MOLST Part A Completed: Yes MOLST Part E Completed:: Yes - History or Present Illness History or Present Illness: This 81 year old man with history of AF. CAD, HTN, DM2, st.3 CKD, COPD, carotid stenosis, spinal stenosis, ICH September 2015, and TAs was admitted to [facility] 08/15/16 with a large right frontal hemorrhage, at which time it was estimated that he would survive 3 to 5 days. However, he did well, and was transferred to [facility] where he was eating and noted to be aspirating with all p.o. intake. He was then made n.p.o. and subsequently transferred to [facility] but the patient's requested return to [facility]. Since arrival here the patient has been obtaunded and minimally responsive. He is unable to eat. He does open his eyes but can not speak. CXR shows LLL consolidation vs. atalectasis. His right parietal 3 x 2.5 cm frontal parenchymal hematoma shows some surrounding vasogenic edema vs. amyloid angiopathy. Dr. Collier is assessing whether other etiologies may be contributing to the patient's altered mental state including an EEG and ammonia level. The family has apparently been quite fractured about this situation. The patient 's daughter was not willing to accept her father's grave prognosis, but now she is coming around, according to the patient's . She is not able to take the patient home for care because she can not afford SITE DAMAGE PREVENTION TECHNICIAN's, although she did not meet income criteria for Medicaid. Lab Values: Abnormal Lab Results 08/29/16 08/29/16 08/30/16 12:02 18:56 00:40 WBC RBC Hgb Hct MCV MCH MCHC RDW Plt Count MPV Neut % (Auto) Lymph % (Auto) [place]ward % (Auto) Eos % (Auto) Baso % (Auto) Absolute Neuts (auto) Absolute Lymphs (auto) Absolute Monos (auto) Absolute Eos (auto) Absolute Basos (auto) Absolute Nucleated RBC Nucleated RBC % Sodium Potassium Chloride Carbon Dioxide Anion Gap BUN Creatinine Est GFR ( Amer) Est GFR (Non-Af Amer) BUN/Creatinine Ratio Glucose POC Glucose (mg/dL) 145 H 169 H 208 H Calcium 08/30/16 08/30/1608/30/17 03:14 06:20 06:25 WBC RBC Hgb Hct MCV MCH MCHC RDW Plt Count MPV Neut % (Auto) Lymph % (Auto) Woodward % (Auto) Eos % (Auto) Baso % (Auto) Absolute Neuts (auto) Absolute Lymphs (auto) Absolute Monos (auto) Absolute Eos (auto) Absolute Basos (auto) Absolute Nucleated RBC Nucleated RBC % Sodium 143 Potassium 4.5 Chloride 113 H Carbon Dioxide 18 L Anion Gap 12 H BUN 30 H Creatinine 2.14 H Est GFR ( Amer) 38.4 Est GFR (Non-Af Amer) 29.9 BUN/Creatinine Ratio 14.0 Glucose 192 H POC Glucose (mg/dL) 226 H 195 H Calcium 8.2 L 08/30/16 06:25 WBC 6.0 RBC 3.62 L Hgb 10.2 L Hct 31 L MCV 85 MCH 28 MCHC 33 RDW 16 H Plt Count 182 MPV 8 Neut % (Auto) 91.5 H Lymph % (Auto) 7.1 L Woodward % (Auto) 1.3 Eos % (Auto) 0 Baso % (Auto) 0.1 Absolute Neuts (auto) 5.5 Absolute Lymphs (auto) 0.4 L Absolute Monos (auto) 0.1 Absolute Eos (auto) 0 Absolute Basos (auto) 0 Absolute Nucleated RBC 0 Nucleated RBC % 0 Sodium Potassium Chloride Carbon Dioxide Anion Gap BUN Creatinine Est GFR ( Amer) Est GFR (Non-Af Amer) BUN/Creatinine Ratio Glucose POC Glucose (mg/dL) Calcium Laboratory Last Values WBC 6.0 10^3/ul (3.5-10.8) 08/30/16 06:25 RBC 3.62 10^6/ul (4.0-5.4) L 08/30/16 06:25 Hgb 10.2 g/dl (14.0-18.0) L 08/30/16 06:25 Hct 31 % (42-52) L 08/30/16 06:25 MCV 85 fL (80-94) 08/30/16 06:25 MCH 28 pg (27-31) 08/30/16 06:25 MCHC 33 g/dl (31-36) 08/30/16 06:25 RDW 16 % (10.5-15) H 08/30/16 06:25 Plt Count 182 10^3/ul (150-450) 08/30/16 06:25 MPV 8 um3 (7.4-10.4) 08/30/16 06:25 Neut % (Auto) 91.5 % (38-83) H 08/30/16 06:25 Lymph % (Auto) 7.1 % (25-47) L 08/30/16 06:25 Woodward % (Auto) 1.3 % (1-9) 08/30/16 06:25 Eos % (Auto) 0 % (0-6) 08/30/16 06:25 Baso % (Auto) 0.1 % (0-2) 08/30/16 06:25 Absolute Neuts (auto) 5.5 10^3/ul (1.5-7.7) 08/30/16 06:25 Absolute Lymphs (auto) 0.4 10^3/ul (1.0-4.8) L 08/30/16 06:25 Absolute Monos (auto) 0.1 10^3/ul (0-0.8) 08/30/16 06:25 Absolute Eos (auto) 0 10^3/ul (0-0.6) 08/30/16 06:25 Absolute Basos (auto) 0 10^3/ul (0-0.2) 08/30/16 06:25 Absolute Nucleated RBC 0 10^3/ul 08/30/16 06:25 Nucleated RBC % 0 08/30/16 06:25 INR (Anticoag Therapy) 1.15 (0.89-1.11) H 08/29/16 01:04 APTT 35.8 seconds (26.0-36.3) 08/29/16 01:04 Sodium 143 mmol/L (133-145) 08/30/16 06:25 Potassium 4.5 mmol/L (3.5-5.0) 08/30/16 06:25 Chloride 113 mmol/L (101-111) H 08/30/16 06:25 Carbon Dioxide 18 mmol/L (22-32) L 08/30/16 06:25 Anion Gap 12 mmol/L (2-11) H 08/30/16 06:25 BUN 30 mg/dL (6-24) H 08/30/16 06:25 Creatinine 2.14 mg/dL (0.67-1.17) H 08/30/16 06:25 Est GFR ( Amer) 38.4 (>60) 08/30/16 06:25 Est GFR (Non-Af Amer) 29.9 (>60) 08/30/16 06:25 BUN/Creatinine Ratio 14.0 (8-20) 08/30/16 06:25 Glucose 192 mg/dL (70-100) H 08/30/16 06:25 POC Glucose (mg/dL) 195 mg/dL (74-106) H 08/30/16 06:20 Lactic Acid 0.9 mmol/L (0.5-2.0) 08/29/16 01:04 Calcium 8.2 mg/dL (8.6-10.3) L 08/30/16 06:25 Magnesium 2.0 mg/dL (1.9-2.7) 08/29/16 01:04 Total Bilirubin 0.90 mg/dL (0.2-1.0) 08/29/16 01:04 AST 21 U/L (13-39) 08/29/16 01:04 ALT 14 U/L (7-52) 08/29/16 01:04 Alkaline Phosphatase 107 U/L (34-104) H 08/29/16 01:04 Troponin I 0.05 ng/mL (<0.04) H* 08/29/16 01:04 C-Reactive Protein 32.48 mg/L (< 5.00) H 08/29/16 01:04 B-Natriuretic Peptide 286 pg/mL (-100) H 08/29/16 01:04 Total Protein 6.6 g/dL (6.4-8.9) 08/29/16 01:04 Albumin 2.9 g/dL (3.2-5.2) L 08/29/16 01:04 Globulin 3.7 g/dL (2-4) 08/29/16 01:04 Albumin/Globulin Ratio 0.8 (1-3) L 08/29/16 01:04 Lipase 23 U/L (11.0-82.0) 08/29/16 01:04 Urine Color Yellow 08/29/16 01:19 Urine Appearance Clear 08/29/16 01:19 Urine pH 6.0 (5-9) 08/29/16 01:19 Ur Specific [place] 1.013 (1.010-1.030) 08/29/16 01:19 Urine Protein 2+(100 mg/dl) (Negative) H 08/29/16 01:19 Urine Ketones 1+ (Negative) H 08/29/16 01:19 Urine Blood 1+ (Negative) H 08/29/16 01:19 Urine Nitrate Negative (Negative) 08/29/16 01:19 Urine Bilirubin Negative (Negative) 08/29/16 01:19 Urine Urobilinogen Negative (Negative) 08/29/16 01:19 Ur Leukocyte Esterase Trace (Negative) H 08/29/16 01:19 Urine WBC (Auto) 2+(11-20/hpf) (Absent) H 08/29/16 01:19 Urine RBC (Auto) Trace(0-2/hpf) (Absent) 08/29/16 01:19 Urine Bacteria 1+ (Absent) H 08/29/16 01:19 Hyaline Casts Present (Absent) H 08/29/16 01:19 RBC Casts Present (Absent) H 08/29/16 01:19 Urine Glucose 1+(50 mg/dl) (Negative) H 08/29/16 01:19 - Objective Active Medications: Acetaminophen (Tylenol Supp*) 650 mg TX Q6H PRN PRN Reason: FEVER/PAIN Albuterol (Ventolin Hfa Inhaler*) 2 puff INH TID PRN PRN Reason: SHORTNESS OF BREATH Dextrose (D50w Syringe 50 Ml*) 12.5 gm IV PUSH .FOR FS < 60 - SS PRN PRN Reason: FS < 60 Docusate Sodium (Colace Cap*) 100 mg PO BID [facility] Last Admin: 08/30/16 08:23 Dose: Not Given Famotidine (Pepcid Tab*) 10 mg PO BID [facility] PRN Reason: Protocol Last Admin: 08/30/16 08:24 Dose: Not Given Heparin Sodium (Porcine) (Heparin Flush Picc/Ml/Cvc(*)) 0 ml IV FLUSH 0600, 1800 [facility] PRN Reason: Protocol Last Admin: 08/30/16 04:37 Dose: Not Given Sodium Chloride (Ns 0.9% 1000 Ml*) 1,000 mls @ 150 mls/hr IV PER RATE [facility] Last Admin: 08/30/16 02:06 Dose: 150 mls/hr Ceftriaxone Sodium 1,000 mg/ (Sodium Chloride) 50 mls @ 200 mls/hr IVPB 0800 [facility] Last Admin: 08/30/16 07:54 Dose: 200 mls/hr Insulin Glargine (Lantus(*)) 10 units SUBCUT DAILY [facility] Last Admin: 08/30/16 07:54 Dose: 10 units Insulin Human Lispro (Humalog*) 0 units SUBCUT Q6HR [facility] PRN Reason: Protocol Last Admin: 08/30/16 06:51 Dose: 1 units Losartan Potassium (Cozaar Tab*) 100 mg PO DAILY [facility] Last Admin: 08/30/16 08:24 Dose: Not Given Nystatin (Nystatin Oint*) 1 applic TOPICAL TID PRN PRN Reason: RASH Oxycodone HCl (Roxycodone Tab*) 2.5 mg PO Q6H PRN PRN Reason: PAIN Polyethylene Glycol/Electrolytes (Miralax*) 8.5 gm PO DAILY [facility] Last Admin: 08/30/16 08:24 Dose: Not Given Potassium Chloride (Klor Con Er Tab*) 10 meq PO BID WITH MEALS [facility] Last Admin: 08/30/16 08:23 Dose: Not Given Vital Signs: Vital Signs: Temp Pulse Resp BP Pulse Ox 98.0 F 92 20 162/70 96 08/30/16 07:34 08/30/16 07:34 08/30/16 08:00 08/30/16 10:38 08/30/16 07:34 Patient Weight: Weight 200 lb 6.4 oz Intake and Output: Intake & Output 08/28/16 08/29/16 08/30/16 08/31/16 06:59 06:59 06:59 06:59 Intake Total 0 1933 Output Total 450 925 Balance -450 1008 Weight 200 lb 6.4 oz Intake: IV Fluids 1933 NS (0.9%) 1933 Oral 0 0 Output: Urine 0 [place] 450 925 Other: # Bowel Movements 0 Estimated Stool Amount Small ADLs: Meal Record Start: 08/29/16 03: 43 Freq: DAILY@0900,1400,1800 Status: Active Created 08/29/16 03:43 System (Rec: 08/29/16 03:43 System MED-M19) Document 08/29/16 18:00 [id number] (Rec: 08/29/16 18:41 [id number] MED-C11) Document 08/30/16 09:00 [id number] (Rec: 08/30/16 10:59 [id number] MED-C11) Intake and Output Start: 08/29/16 03: 43 Freq: DAILY@0600,1400,2200 Status: Active Created 08/29/16 03:43 System (Rec: 08/29/16 03:43 System MED-M19) Document 08/29/16 06:00 [id number] (Rec: 08/29/16 06:15 [id number] MEDL-C02) Document 08/29/16 14:00 [id number] (Rec: 08/29/16 15:18 [id number] MED-C11) Document 08/29/16 22:00 [id number] (Rec: 08/29/16 22:15 [id number] MED-C11) Document 08/30/16 06:00 [id number] (Rec: 08/30/16 06:09 [id number] MED-C09) General Impression: Large, obtunded man, lying in bed with episodes of restlessness, non verbal. Head: Symmetrical Eyes: No Scleral Icterus Ears/Nose/Mouth/Throat: Clear Oropharnyx Neck: Trachea Midline Cardiovascular: RRR Respiratory: Symmetrical Chest Expansion and Respiratory Effort Abdominal: NL Sounds; No Tenderness; No Distention - Assessment Assessment: This patient has suffered a large frontal hemorrhage, and has had gradual persistent deterioration in his ability to swallow and his mental status. I suspect this is most likely on the basis of cerebral edema. He has not eaten in several days. He is appropriate for hospice services with a diagnosis of hemorrhagic CVA and a secondary diagnosis of dysphagia. I spoke with his and she was initially hesitant to take her home for end-of-life care, but then after speaking with her children who have now accepted their father's terminal diagnosis, they are willing to come home to help her care for him there. Alternative possibility could be the hospice wing on the 8th floor of the [facility]. If the patient continues to be unable to eat, he would be expected to within two weeks at home. I would recommend discontinuing most medications for comfort medications only, including Morphine concentrate 20 mg/ml to be given sublingually, and lorazepam. Thank you for requesting this consultation. - Plan Consult Plan (MU): Hospice - Time On Unit Date of Evaluation: 08/30/16 Hospice Consult Time in: 11:00 Hospice Consult Time Out: 12:15 Hospice Consult Time Total: 75 > 50% of Time Spend In Counseling or Coordinating Care: Yes
--- NOTE | 2016-08-30 19:52 | PN ---
Subjective Date of Service: 08/30/16 Interval History: . Long discussion with family - Pt's and then, his daughter Lilia Barreto as [phone]. 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 All involved agree with hospice given very poor prognosis. Will dc home on Friday with hospice services to be started. Family wishes to care for Mr. Murillo in his home. . Family History: Unchanged from Admission Social History: Unchanged from Admission Past Medical History: Unchanged from Admission Objective Active Medications: Acetaminophen (Tylenol Supp*) 650 mg ID Q6H PRN PRN Reason: FEVER/PAIN Albuterol (Ventolin Hfa Inhaler*) 2 puff INH TID PRN PRN Reason: SHORTNESS OF BREATH Dextrose (D50w Syringe 50 Ml*) 12.5 gm IV PUSH .FOR FS < 60 - SS PRN PRN Reason: FS < 60 Docusate Sodium (Colace Cap*) 100 mg PO BID [facility] Last Admin: 08/30/16 08:23 Dose: Not Given Famotidine (Pepcid Tab*) 10 mg PO BID [facility] PRN Reason: Protocol Last Admin: 08/30/16 08:24 Dose: Not Given Heparin Sodium (Porcine) (Heparin Flush Picc/Ml/Cvc(*)) 0 ml IV FLUSH 0600, 1800 [facility] PRN Reason: Protocol Last Admin: 08/30/16 16:42 Dose: Not Given Sodium Chloride (Ns 0.9% 1000 Ml*) 1,000 mls @ 150 mls/hr IV PER RATE [facility] Last Admin: 08/30/16 02:06 Dose: 150 mls/hr Ceftriaxone Sodium 1,000 mg/ (Sodium Chloride) 50 mls @ 200 mls/hr IVPB 0800 [facility] Last Admin: 08/30/16 07:54 Dose: 200 mls/hr Insulin Glargine (Lantus(*)) 10 units SUBCUT DAILY [facility] Last Admin: 08/30/16 07:54 Dose: 10 units Insulin Human Lispro (Humalog*) 0 units SUBCUT Q6HR [facility] PRN Reason: Protocol Last Admin: 08/30/16 19:16 Dose: 1 units Losartan Potassium (Cozaar Tab*) 100 mg PO DAILY [facility] Last Admin: 08/30/16 08:24 Dose: Not Given Nystatin (Nystatin Oint*) 1 applic TOPICAL TID PRN PRN Reason: RASH Oxycodone HCl (Roxycodone Tab*) 2.5 mg PO Q6H PRN PRN Reason: PAIN Polyethylene Glycol/Electrolytes (Miralax*) 8.5 gm PO DAILY [facility] Last Admin: 08/30/16 08:24 Dose: Not Given Potassium Chloride (Klor Con Er Tab*) 10 meq PO BID WITH MEALS [facility] Last Admin: 08/30/16 16:42 Dose: Not Given Vital Signs 08/29/16 08/30/16 08/30/16 20:00 00:44 03:43 Temperature 98.3 F 98.8 F Pulse Rate 92 84 Respiratory 20 20 Rate Blood Pressure 151/86 145/72 (mmHg) O2 Sat by Pulse 96 96 Oximetry 08/30/16 08/30/16 08/30/16 07:34 07:57 08:00 Temperature 98.0 F Pulse Rate 92 Respiratory 18 20 Rate Blood Pressure 181/73 (mmHg) O2 Sat by Pulse 96 Oximetry Oxygen Devices in Use Now: Nasal Cannula Appearance: unresponsive Eyes: No Scleral Icterus Ears/Nose/Mouth/Throat: Clear Oropharnyx Neck: Trachea Midline Respiratory: Symmetrical Chest Expansion and Respiratory Effort Cardiovascular: NL Sounds; No Murmurs; No JVD Abdominal: NL Sounds; No Tenderness; No Distention Lymphatic: No Cervical Adenopathy Extremities: No Edema Skin: No Rash or Ulcers Neurological: - - unresponsive Lines/Tubes/Other Access: Clean, Dry and Intact Peripheral IV Nutrition: Taking PO's Result Diagrams: 08/30/16 06:25 08/30/16 06:25 Assess/Plan/Problems-Billing . Assessment: 81 yo man with ICH and progressive unresponsiveness. No oral intake. Family opting for comfort care. DC IVF. No oral meds ID tylenol for pain / iv or SQ morphine for pain. Nursing comfort care
[2016-08-31] MEDS: Insulin LISPRO* 1 UNITS UNIT SUBCUT SCH ×5 (00:24→23:54)
--- NOTE | 2016-08-31 03:29 | EEG ---
ELECTROENCEPHALOGRAPHY: DATE OF STUDY: DATE OF DICTATION: 08/30/16 - ROOM #412 PATIENT OF: Dr. Cary. 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 MEDICATIONS: Include: 1. Albuterol. 2. Docusate. 3. Pepcid. 4. Insulin. 5. Losartan. 6. Oxycodone. 7. Keppra. REPORT: With the tracing done at bedside, background cerebral activity reaches 6 Hz at times and appears diffuse. There is admixed diffuse delta slowing. There is some delta slowing more in the right hemisphere than the left. No epileptiform potentials are noted. CLINICAL IMPRESSION: This EEG is abnormal because of diffuse slowing of background consistent with an encephalopathy, but nonspecific as to etiology. In addition, there is some further slowing in the right hemisphere, likely secondary to the patient's underlying structural lesion. No epileptiform potentials are noted. [id number]/[facility] #: [id number] [facility]
--- NOTE | 2016-08-31 19:52 | PN ---
Subjective Date of Service: 08/31/16 Interval History: . pt's upset IVF were stopped. I explained I could make up the IVF that he did not get in the last 12 hours easily, but that she had agreed to comfort care and that his grim prognosis supported this decision. Upon this conversation, she revealed that her children were upset with her -- probably as a grief response -- and she understood the situation. She agreed I was acting in good russ. Plan still for friday dc to her home, though I remain uncertain of her ability to care for Mr. Murillo, even with help of her children. On that note, pt's daughter Lilia is apparently having car trouble and is on her way from [place] and will be travelling tomorrow night/friday morning. If there is credible evidence that patient's does not have ample support, we should redirect care to [facility], where patient can continue to receive palliative/comfort care and related services. He was made comfort care last night here with most oral meds dc'd and IVF stopped. patient is comfortable and does look around room and track people, but does not communicate meaningfully and does not show any ability to take food or liquid orally. prognosis remains grim. Family History: Unchanged from Admission Social History: Unchanged from Admission Past Medical History: Unchanged from Admission Objective Active Medications: . Acetaminophen (Tylenol Supp*) 650 mg UT Q6H PRN PRN Reason: FEVER/PAIN Dextrose (D50w Syringe 50 Ml*) 12.5 gm IV PUSH .FOR FS < 60 - SS PRN PRN Reason: FS < 60 Heparin Sodium (Porcine) (Heparin Flush Picc/Ml/Cvc(*)) 0 ml IV FLUSH 0600, 1800 MARLIN PRN Reason: Protocol Last Admin: 08/31/16 17:20 Dose: 1 ml Insulin Human Lispro (Humalog*) 0 units SUBCUT Q6HR MARLIN PRN Reason: Protocol Last Admin: 08/31/16 17:20 Dose: 1 units Nystatin (Nystatin Oint*) 1 applic TOPICAL TID PRN PRN Reason: RASH Vital Signs 08/30/16 08/31/16 08/31/16 20:00 00:01 08:00 Temperature 98.1 F Pulse Rate 91 Respiratory 18 18 18 Rate Blood Pressure 172/85 (mmHg) O2 Sat by Pulse 95 Oximetry 03/18/17 08:01 Temperature 97.5 F Pulse Rate 87 Respiratory 18 Rate Blood Pressure 178/96 (mmHg) O2 Sat by Pulse 93 Oximetry Oxygen Devices in Use Now: Nasal Cannula Appearance: usually sleeping, but awakens occasionally and utters one word at most. does not follow commands. no apparent pain. Eyes: No Scleral Icterus Ears/Nose/Mouth/Throat: Clear Oropharnyx Respiratory: Symmetrical Chest Expansion and Respiratory Effort, Clear to Auscultation Cardiovascular: NL Sounds; No Murmurs; No JVD Abdominal: NL Sounds; No Tenderness; No Distention Lymphatic: No Cervical Adenopathy Extremities: No Edema Skin: No Rash or Ulcers Neurological: - - awake occasionally, but does not follow commands. mostly sleeping. does not cooperate with an exam. Lines/Tubes/Other Access: Clean, Dry and Intact Peripheral IV Nutrition: - - NPO Result Diagrams: 08/30/16 06:25 08/30/16 06:25 Assess/Plan/Problems-Billing . Assessment: 81 yo man with ICH and progressive unresponsiveness. No oral intake. opting for comfort care. IVF off for now. No oral meds UT tylenol for pain / iv or SQ morphine for pain. Nursing comfort care - Patient Problems (1) Right-sided intracerebral hemorrhage Current Visit: No Status: Acute Priority: High Code(s): I61.2 - NONTRAUMATIC INTRACEREBRAL HEMORRHAGE IN HEMISPHERE, UNSP (2) Need for comfort care Current Visit: Yes Status: Acute Priority: High Code(s): CUY1292 - (3) DNR (do not resuscitate) Current Visit: No Status: Acute Priority: High
[2016-09-01] MEDS: Insulin LISPRO* 1 UNITS UNIT SUBCUT SCH ×3 (05:15→17:25)
--- NOTE | 2016-09-01 09:39 | PN ---
Subjective Date of Service: 09/01/16 Interval History: Pt does not answer any of my questions. He does look at me when I speak to him initially then during my evaluation both eyes deviate upwards and stay that way for a period of 15-30 seconds despite my speaking to him and light touch to the L side of his face. Objective Active Medications: Acetaminophen (Tylenol Supp*) 650 mg [place] Q6H PRN PRN Reason: FEVER/PAIN Dextrose (D50w Syringe 50 Ml*) 12.5 gm IV PUSH .FOR FS < 60 - SS PRN PRN Reason: FS < 60 Heparin Sodium (Porcine) (Heparin Flush Picc/Ml/Cvc(*)) 0 ml IV FLUSH 0600, 1800 MARLIN PRN Reason: Protocol Last Admin: 09/01/16 05:16 Dose: 1 ml Insulin Human Lispro (Humalog*) 0 units SUBCUT Q6HR MARLIN PRN Reason: Protocol Last Admin: 09/01/16 05:15 Dose: 1 units Nystatin (Nystatin Oint*) 1 applic TOPICAL TID PRN PRN Reason: RASH Vital Signs 08/31/16 08/31/16 08/31/16 15:26 20:00 23:39 Temperature 97.9 F 97.1 F Pulse Rate 92 87 Respiratory 20 18 18 Rate Blood Pressure 155/77 160/91 (mmHg) O2 Sat by Pulse 96 93 Oximetry 09/01/16 08:02 Temperature 97.6 F Pulse Rate 92 Respiratory 17 Rate Blood Pressure 179/77 (mmHg) O2 Sat by Pulse 97 Oximetry Oxygen Devices in Use Now: None Appearance: Elderly male sitting up in bed, alert, watching a movie, NAD Eyes: No Scleral Icterus Ears/Nose/Mouth/Throat: - - dry oral mucosa Respiratory: Symmetrical Chest Expansion and Respiratory Effort, Clear to Auscultation - anteriorly Cardiovascular: NL Sounds; No Murmurs; No JVD, No Edema, - - irregularly irregular, controlled rate Abdominal: NL Sounds; No Tenderness; No Distention Extremities: No Clubbing, Cyanosis Skin: No Rash or Ulcers, No Nodules or Sclerosis Neurological: - - alert, does not speak but once attempts to mouth words to me Result Diagrams: 08/30/16 06:25 08/30/16 06:25 Additional Lab and Data: Lab Results 08/29/16 08/29/16 08/29/16 Range/Units 01:04 01:04 01:04 WBC 9.5 (3.5-10.8) 10^3/ul RBC 3.94 L (4.0-5.4) 10^6/ul Hgb 11.0 L (14.0-18.0) g/dl Hct 33 L (42-52) % MCV 85 (80-94) fL MCH 28 (27-31) pg MCHC 33 (31-36) g/dl RDW 15 (10.5-15) % Plt Count 184 (150-450) 10^3/ul MPV 8 (7.4-10.4) um3 Neut % (Auto) 80.4 (38-83) % Lymph % (Auto) 10.8 L (25-47) % [place] % (Auto) 5.8 (1-9) % Eos % (Auto) 2.5 (0-6) % Baso % (Auto) 0.5 (0-2) % Absolute Neuts (auto) 7.6 (1.5-7.7) 10^3/ul Absolute Lymphs (auto) 1.0 (1.0-4.8) 10^3/ul Absolute Monos (auto) 0.5 (0-0.8) 10^3/ul Absolute Eos (auto) 0.2 (0-0.6) 10^3/ul Absolute Basos (auto) 0 (0-0.2) 10^3/ul Absolute Nucleated RBC 0 10^3/ul Nucleated RBC % 0 INR (Anticoag Therapy) 1.15 H (0.89-1.11) APTT 35.8 (26.0-36.3) seconds Sodium 141 (133-145) mmol/L Potassium 3.9 (3.5-5.0) mmol/L Chloride 109 (101-111) mmol/L Carbon Dioxide 24 (22-32) mmol/L Anion Gap 8 (2-11) mmol/L BUN 20 (6-24) mg/dL Creatinine 2.03 H (0.67-1.17) mg/dL Est GFR ( Amer) 40.8 (>60) Est GFR (Non-Af Amer) 31.8 (>60) BUN/Creatinine Ratio 9.9 (8-20) Glucose 123 H (70-100) mg/dL Lactic Acid (0.5-2.0) mmol/L Calcium 8.7 (8.6-10.3) mg/dL Magnesium 2.0 (1.9-2.7) mg/dL Total Bilirubin 0.90 (0.2-1.0) mg/dL AST 21 (13-39) U/L ALT 14 (7-52) U/L Alkaline Phosphatase 107 H (34-104) U/L Troponin I 0.05 H* (<0.04) ng/mL C-Reactive Protein 32.48 H (< 5.00) mg/L B-Natriuretic Peptide ( - 100) pg/mL Total Protein 6.6 (6.4-8.9) g/dL Albumin 2.9 L (3.2-5.2) g/dL Globulin 3.7 (2-4) g/dL Albumin/Globulin Ratio 0.8 L (1-3) Lipase 23 (11.0-82.0) U/L Urine Color Urine Appearance Urine pH (5-9) Ur Specific [place] (1.010-1.030) Urine Protein (Negative) Urine Ketones (Negative) Urine Blood (Negative) Urine Nitrate (Negative) Urine Bilirubin (Negative) Urine Urobilinogen (Negative) Ur Leukocyte Esterase (Negative) Urine WBC (Auto) (Absent) Urine RBC (Auto) (Absent) Urine Bacteria (Absent) Hyaline Casts (Absent) RBC Casts (Absent) Urine Glucose (Negative) 08/29/16 08/29/16 08/29/16 Range/Units 01:04 01:04 01:19 WBC (3.5-10.8) 10^3/ul RBC (4.0-5.4) 10^6/ul Hgb (14.0-18.0) g/dl Hct (42-52) % MCV (80-94) fL MCH (27-31) pg MCHC (31-36) g/dl RDW (10.5-15) % Plt Count (150-450) 10^3/ul MPV (7.4-10.4) um3 Neut % (Auto) (38-83) % Lymph % (Auto) (25-47) % [place] % (Auto) (1-9) % Eos % (Auto) (0-6) % Baso % (Auto) (0-2) % Absolute Neuts (auto) (1.5-7.7) 10^3/ul Absolute Lymphs (auto) (1.0-4.8) 10^3/ul Absolute Monos (auto) (0-0.8) 10^3/ul Absolute Eos (auto) (0-0.6) 10^3/ul Absolute Basos (auto) (0-0.2) 10^3/ul Absolute Nucleated RBC 10^3/ul Nucleated RBC % INR (Anticoag Therapy) (0.89-1.11) APTT (26.0-36.3) seconds Sodium (133-145) mmol/L Potassium (3.5-5.0) mmol/L Chloride (101-111) mmol/L Carbon Dioxide (22-32) mmol/L Anion Gap (2-11) mmol/L BUN (6-24) mg/dL Creatinine (0.67-1.17) mg/dL Est GFR ( Amer) (>60) Est GFR (Non-Af Amer) (>60) BUN/Creatinine Ratio (8-20) Glucose (70-100) mg/dL Lactic Acid 0.9 (0.5-2.0) mmol/L Calcium (8.6-10.3) mg/dL Magnesium (1.9-2.7) mg/dL Total Bilirubin (0.2-1.0) mg/dL AST (13-39) U/L ALT (7-52) U/L Alkaline Phosphatase (34-104) U/L Troponin I (<0.04) ng/mL C-Reactive Protein (< 5.00) mg/L B-Natriuretic Peptide 286 H ( - 100) pg/mL Total Protein (6.4-8.9) g/dL Albumin (3.2-5.2) g/dL Globulin (2-4) g/dL Albumin/Globulin Ratio (1-3) Lipase (11.0-82.0) U/L Urine Color Yellow Urine Appearance Clear Urine pH 6.0 (5-9) Ur Specific [place] 1.013 (1.010-1.030) Urine Protein 2+(100 mg/dl) H (Negative) Urine Ketones 1+ H (Negative) Urine Blood 1+ H (Negative) Urine Nitrate Negative (Negative) Urine Bilirubin Negative (Negative) Urine Urobilinogen Negative (Negative) Ur Leukocyte Esterase Trace H (Negative) Urine WBC (Auto) 2+(11-20/hpf) H (Absent) Urine RBC (Auto) Trace(0-2/hpf) (Absent) Urine Bacteria 1+ H (Absent) Hyaline Casts Present H (Absent) RBC Casts Present H (Absent) Urine Glucose 1+(50 mg/dl) H (Negative) Assess/Plan/Problems-Billing Mr Loera is an 81 yo M who has a h/o recent (~2.5 weeks ago) R frontal hemorrhage, afib on coumadin prior to the bleed, type II DM, stage III CKD, chronic downey and COPD who presented to the ER from [facility] for concerns of ? worsened R frontal hemorrhage and aspiration. The patient has since been found to not safely take in orals and has been made comfort care. - Patient Problems (1) Right-sided intracerebral hemorrhage Current Visit: Yes Status: Acute Code(s): I61.2 - NONTRAUMATIC INTRACEREBRAL HEMORRHAGE IN HEMISPHERE, UNSP SNOMED Code(s): 177574409 Comment: Pt is more alert than the last time I saw the patient (08/19/16). He is now unable to safely swallow and has been made comfort care. Plan is for hospice at possibly home or [facility] if pt's and children are unable to care for him at home. Continue NPO status for now but can discuss with the patient's about comfort eating though this will put him at risk for aspiration and possibly prolong the dying process. (2) Atrial fibrillation Current Visit: Yes Status: Acute Code(s): I48.91 - UNSPECIFIED ATRIAL FIBRILLATION SNOMED Code(s): 18497854 Comment: Rate is controlled. No anticoagulation due to recent bleed and current comfort care status. (3) CKD (chronic kidney disease) stage 3, GFR 30-59 ml/min Current Visit: Yes Status: Acute Code(s): N18.3 - CHRONIC KIDNEY DISEASE, STAGE 3 (MODERATE) SNOMED Code(s): 782674818 Comment: Creatinine was higher than previous on last check but he is now comfort care and no need to monitor further. (4) COPD (chronic obstructive pulmonary disease) Current Visit: Yes Status: Acute Code(s): J44.9 - CHRONIC OBSTRUCTIVE PULMONARY DISEASE, UNSPECIFIED SNOMED Code(s): 75967780 Comment: No signs of exacerbation. (5) DVT prophylaxis Current Visit: Yes Status: Acute Code(s): IRJ7141 - SNOMED Code(s): 880204055 Comment: None-pt is comfort care (6) DNR (do not resuscitate) Current Visit: Yes Status: Acute
[2016-09-02] MEDS: Insulin LISPRO* 1 UNITS UNIT SUBCUT SCH ×2 (00:10→05:54)
[2016-09-02 08:24] VITALS: BP 151/86
--- NOTE | 2016-09-02 08:57 | PN ---
Subjective Date of Service: 09/02/16 Interval History: Pt is unable to answer any yes/no questions. He does look around the room. Objective Active Medications: Acetaminophen (Tylenol Supp*) [address] Q6H PRN PRN Reason: FEVER/PAIN Dextrose (D50w Syringe 50 Ml*) 12.5 gm IV PUSH .FOR FS < 60 - SS PRN PRN Reason: FS < 60 Heparin Sodium (Porcine) (Heparin Flush Picc/Ml/Cvc(*)) 0 ml IV FLUSH 0600, 1800 MARLIN PRN Reason: Protocol Last Admin: 09/02/16 05:55 Dose: 1 ml Insulin Human Lispro (Humalog*) 0 units SUBCUT Q6HR MARLIN PRN Reason: Protocol Last Admin: 09/02/16 05:54 Dose: 1 units Nystatin (Nystatin Oint*) 1 applic TOPICAL TID PRN PRN Reason: RASH Vital Signs 09/01/16 09/02/16 09/02/16 20:00 07:19 08:03 Temperature 98.1 F Pulse Rate 76 Respiratory 20 16 16 Rate Blood Pressure 151/86 (mmHg) O2 Sat by Pulse 97 Oximetry Oxygen Devices in Use Now: None Appearance: Elderly male sitting up in bed, alert but non-communicative, NAD Eyes: No Scleral Icterus Ears/Nose/Mouth/Throat: Mucous Membranes Moist Respiratory: Symmetrical Chest Expansion and Respiratory Effort, Clear to Auscultation - anteriorly Cardiovascular: NL Sounds; No Murmurs; No JVD, No Edema, - - irregularly irregular Abdominal: NL Sounds; No Tenderness; No Distention Extremities: No Clubbing, Cyanosis Skin: No Rash or Ulcers, No Nodules or Sclerosis Neurological: - - alert, does not speak, squeezes his daughters hand frequently while I am talking to him and her Result Diagrams: 08/30/16 06:25 08/30/16 06:25 Additional Lab and Data: Lab Results 08/29/16 08/29/16 08/29/16 Range/Units 01:04 01:04 01:04 WBC 9.5 (3.5-10.8) 10^3/ul RBC 3.94 L (4.0-5.4) 10^6/ul Hgb 11.0 L (14.0-18.0) g/dl Hct 33 L (42-52) % MCV 85 (80-94) fL MCH 28 (27-31) pg MCHC 33 (31-36) g/dl RDW 15 (10.5-15) % Plt Count 184 (150-450) 10^3/ul MPV 8 (7.4-10.4) um3 Neut % (Auto) 80.4 (38-83) % Lymph % (Auto) 10.8 L (25-47) % [place] % (Auto) 5.8 (1-9) % Eos % (Auto) 2.5 (0-6) % Baso % (Auto) 0.5 (0-2) % Absolute Neuts (auto) 7.6 (1.5-7.7) 10^3/ul Absolute Lymphs (auto) 1.0 (1.0-4.8) 10^3/ul Absolute Monos (auto) 0.5 (0-0.8) 10^3/ul Absolute Eos (auto) 0.2 (0-0.6) 10^3/ul Absolute Basos (auto) 0 (0-0.2) 10^3/ul Absolute Nucleated RBC 0 10^3/ul Nucleated RBC % 0 INR (Anticoag Therapy) 1.15 H (0.89-1.11) APTT 35.8 (26.0-36.3) seconds Sodium 141 (133-145) mmol/L Potassium 3.9 (3.5-5.0) mmol/L Chloride 109 (101-111) mmol/L Carbon Dioxide 24 (22-32) mmol/L Anion Gap 8 (2-11) mmol/L BUN 20 (6-24) mg/dL Creatinine 2.03 H (0.67-1.17) mg/dL Est GFR ( Amer) 40.8 (>60) Est GFR (Non-Af Amer) 31.8 (>60) BUN/Creatinine Ratio 9.9 (8-20) Glucose 123 H (70-100) mg/dL Lactic Acid (0.5-2.0) mmol/L Calcium 8.7 (8.6-10.3) mg/dL Magnesium 2.0 (1.9-2.7) mg/dL Total Bilirubin 0.90 (0.2-1.0) mg/dL AST 21 (13-39) U/L ALT 14 (7-52) U/L Alkaline Phosphatase 107 H (34-104) U/L Troponin I 0.05 H* (<0.04) ng/mL C-Reactive Protein 32.48 H (< 5.00) mg/L B-Natriuretic Peptide ( - 100) pg/mL Total Protein 6.6 (6.4-8.9) g/dL Albumin 2.9 L (3.2-5.2) g/dL Globulin 3.7 (2-4) g/dL Albumin/Globulin Ratio 0.8 L (1-3) Lipase 23 (11.0-82.0) U/L Urine Color Urine Appearance Urine pH (5-9) Ur Specific [place] (1.010-1.030) Urine Protein (Negative) Urine Ketones (Negative) Urine Blood (Negative) Urine Nitrate (Negative) Urine Bilirubin (Negative) Urine Urobilinogen (Negative) Ur Leukocyte Esterase (Negative) Urine WBC (Auto) (Absent) Urine RBC (Auto) (Absent) Urine Bacteria (Absent) Hyaline Casts (Absent) RBC Casts (Absent) Urine Glucose (Negative) 08/29/16 08/29/16 08/29/16 Range/Units 01:04 01:04 01:19 WBC (3.5-10.8) 10^3/ul RBC (4.0-5.4) 10^6/ul Hgb (14.0-18.0) g/dl Hct (42-52) % MCV (80-94) fL MCH (27-31) pg MCHC (31-36) g/dl RDW (10.5-15) % Plt Count (150-450) 10^3/ul MPV (7.4-10.4) um3 Neut % (Auto) (38-83) % Lymph % (Auto) (25-47) % [place] % (Auto) (1-9) % Eos % (Auto) (0-6) % Baso % (Auto) (0-2) % Absolute Neuts (auto) (1.5-7.7) 10^3/ul Absolute Lymphs (auto) (1.0-4.8) 10^3/ul Absolute Monos (auto) (0-0.8) 10^3/ul Absolute Eos (auto) (0-0.6) 10^3/ul Absolute Basos (auto) (0-0.2) 10^3/ul Absolute Nucleated RBC 10^3/ul Nucleated RBC % INR (Anticoag Therapy) (0.89-1.11) APTT (26.0-36.3) seconds Sodium (133-145) mmol/L Potassium (3.5-5.0) mmol/L Chloride (101-111) mmol/L Carbon Dioxide (22-32) mmol/L Anion Gap (2-11) mmol/L BUN (6-24) mg/dL Creatinine (0.67-1.17) mg/dL Est GFR ( Amer) (>60) Est GFR (Non-Af Amer) (>60) BUN/Creatinine Ratio (8-20) Glucose (70-100) mg/dL Lactic Acid 0.9 (0.5-2.0) mmol/L Calcium (8.6-10.3) mg/dL Magnesium (1.9-2.7) mg/dL Total Bilirubin (0.2-1.0) mg/dL AST (13-39) U/L ALT (7-52) U/L Alkaline Phosphatase (34-104) U/L Troponin I (<0.04) ng/mL C-Reactive Protein (< 5.00) mg/L B-Natriuretic Peptide 286 H ( - 100) pg/mL Total Protein (6.4-8.9) g/dL Albumin (3.2-5.2) g/dL Globulin (2-4) g/dL Albumin/Globulin Ratio (1-3) Lipase (11.0-82.0) U/L Urine Color Yellow Urine Appearance Clear Urine pH 6.0 (5-9) Ur Specific [place] 1.013 (1.010-1.030) Urine Protein 2+(100 mg/dl) H (Negative) Urine Ketones 1+ H (Negative) Urine Blood 1+ H (Negative) Urine Nitrate Negative (Negative) Urine Bilirubin Negative (Negative) Urine Urobilinogen Negative (Negative) Ur Leukocyte Esterase Trace H (Negative) Urine WBC (Auto) 2+(11-20/hpf) H (Absent) Urine RBC (Auto) Trace(0-2/hpf) (Absent) Urine Bacteria 1+ H (Absent) Hyaline Casts Present H (Absent) RBC Casts Present H (Absent) Urine Glucose 1+(50 mg/dl) H (Negative) Assess/Plan/Problems-Billing Mr Loera is an 81 yo M who has a h/o recent (~2.5 weeks ago) R frontal hemorrhage, afib on coumadin prior to the bleed, type II DM, stage III CKD, chronic downey and COPD who presented to the ER from [facility] for concerns of ? worsened R frontal hemorrhage and aspiration. The patient has since been found to not safely take in orals and has been made comfort care. - Patient Problems (1) Right-sided intracerebral hemorrhage Current Visit: Yes Status: Acute Code(s): I61.2 - NONTRAUMATIC INTRACEREBRAL HEMORRHAGE IN HEMISPHERE, UNSP SNOMED Code(s): 720989022 Comment: Pt appears more withdrawn today compared to yesterday. His called this AM and requests that he have IVF administered prior to going home so he has more time with his daughter who just got in from [place]. I tried to explain that giving him the fluids will just prolong the inevitable. She still requests that he receive the fluids before going home. Plan is for home with hospice. The patient's will have help from her daughter who has been a TI[employer] in the past as well as from the other children. (2) Atrial fibrillation Current Visit: Yes Status: Acute Code(s): I48.91 - UNSPECIFIED ATRIAL FIBRILLATION SNOMED Code(s): 93651885 Comment: Rate is controlled. No anticoagulation due to recent bleed and current comfort care status. (3) CKD (chronic kidney disease) stage 3, GFR 30-59 ml/min Current Visit: Yes Status: Acute Code(s): N18.3 - CHRONIC KIDNEY DISEASE, STAGE 3 (MODERATE) SNOMED Code(s): 686981883 Comment: Creatinine was higher than previous on last check but he is now comfort care and no need to monitor further. (4) COPD (chronic obstructive pulmonary disease) Current Visit: Yes Status: Acute Code(s): J44.9 - CHRONIC OBSTRUCTIVE PULMONARY DISEASE, UNSPECIFIED SNOMED Code(s): 88613137 Comment: No signs of exacerbation. (5) DVT prophylaxis Current Visit: Yes Status: Acute Code(s): DGX3994 - SNOMED Code(s): 629850506 Comment: None-pt is comfort care (6) DNR (do not resuscitate) Current Visit: Yes Status: Acute Status and Disposition: d/c home with hospice today.
[2016-09-02] MEDS ORDERED: NS 0.9% 1000 ML* 1,000 ML IV SCH (09:30)
--- NOTE | 2016-09-03 12:12 | DS ---
DISCHARGE SUMMARY: DATE OF ADMISSION: 08/29/16 DATE OF DISCHARGE: 09/02/16 PRIMARY CARE PROVIDER: Dr. Mena. PRINCIPAL DIAGNOSES: 1. Right intracerebral hemorrhage - subacute. 2. Possible aspiration. SECONDARY DIAGNOSES: 1. Type 2 diabetes. 2. Stage 3 chronic kidney disease. 3. Atrial fibrillation. DISCHARGE MEDICATIONS: 1. Roxanol 5 mg p.o./sublingual q.2 hours p.r.n. pain or air hunger. 2. Ativan 0.5 mg sublingual q.6 hours p.r.n. anxiety. 3. Tylenol 650 mg p.r. q.6 hours p.r.n. pain. HOSPITAL COURSE: Mr. Loera is an 81-year-old male who was [place] [facility] [place]; however, he was diagnosed with a right frontal intracerebral hemorrhage. The patient at that time did improve over the course of the hospitalization and got to the point, where he was able to eat a puree diet with pudding thick liquids and was discharged for subacute rehab. The patient was discharged to [facility]. He was sent back to [facility] on 08/28/16 as he was unable to swallow. The patient was made n.p.o. and [facility] indicated that they can no longer care for him and directed him to the emergency room. The patient's family requested transfer to [facility]. The patient at the time of his admission was minimally responsive and unable to participate in the interview. This was changed from his baseline. The patient did undergo a brain MRI on 08/29/16 that revealed a 3.7 cm intraparenchymal hemorrhage, hematoma of the right frontal lobe with associated vasogenic edema without any shift and was recommended to followup imaging after resolution of hematoma, which include underlying parenchymal pathology; however, it was clear the patient was not able to swallow safely. The patient was seen in consultation by Dr. 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 Additional testing including ammonia level and EEG was recommended to evaluate for other causes for his deterioration. The EEG was performed and was noted to be abnormal due to diffuse swelling of the background consistent with an encephalopathy. No epileptiform potentials were noted. Dr. Vincent was consulted on 08/30/16 and it was felt that it was appropriate for hospital services. The patient was made comfort care and ultimately discharged home on 09/02/16 to be signed under hospice. The patient's did contact me on the morning of 09/02/16 requesting that he receive IV fluids prior to being discharged home, so he had more time with his daughter, who just arrived from [place]. I tried to explain that this was only going to prolong the inevitable; however, she continued to request this, therefore he received approximately 2 to 3 hours worth of IV fluids prior to leaving the hospital. The patient was essentially noncommunicative, which was the change from his prior hospitalization; however, it appeared in general that he was failing and going to related to the intracerebral hemorrhage and resultant dysphagia. The patient was stable upon discharge home though his prognosis was grim. FOLLOWUP CONCERNS: The patient is being discharged home today, 09/02/16, to be signed under hospice. ACTIVITY LEVEL: As tolerated. DIET: N.P.O.; however, if he indicates that he wants to eat or drink, this could be attempted with the understanding that he would likely aspirate. TIME SEEN: Thirty-five minutes was spent discharging this patient. CC: Dr. Mena* [id number]/CPS #: [id number]
== END 2016-09-02 12:05 | disposition hospice, home (50) | DRG 64 ==
LOC: ED 22:24 → MED 08-29 02:16
PROVIDERS: ADMIT Internal Medicine; ATTEND Hospitalist
PROC: 4A00X4Z Measurement of Central Nervous Electrical Activity, External Approach (ICD-10-PCS; principal; 2016-08-30)
DX: I61.9 Nontraumatic intracerebral hemorrhage, unspecified (principal); G93.6 Cerebral edema; J69.0 Pneumonitis due to inhalation of food and vomit; G93.40 Encephalopathy, unspecified; N17.9 Acute kidney failure, unspecified; E11.22 Type 2 diabetes mellitus with diabetic chronic kidney disease; N18.3 Chronic kidney disease, stage 3 (moderate); I48.91 Unspecified atrial fibrillation; I25.10 Atherosclerotic heart disease of native coronary artery without angina pectoris; J44.9 Chronic obstructive pulmonary disease, unspecified; E13.40 Other specified diabetes mellitus with diabetic neuropathy, unspecified; G47.33 Obstructive sleep apnea (adult) (pediatric); I12.9 Hypertensive chronic kidney disease with stage 1 through stage 4 chronic kidney disease, or unspecified chronic kidney disease; F32.9 Major depressive disorder, single episode, unspecified; K57.90 Diverticulosis of intestine, part unspecified, without perforation or abscess without bleeding; N40.0 Benign prostatic hyperplasia without lower urinary tract symptoms; Z66 Do not resuscitate; Z87.440 Personal history of urinary (tract) infections; Z99.89 Dependence on other enabling machines and devices; Z88.1 Allergy status to other antibiotic agents; Z88.0 Allergy status to penicillin; Z98.61 Coronary angioplasty status; Z79.4 Long term (current) use of insulin; Z79.01 Long term (current) use of anticoagulants
CPT/HCPCS: 36415; 70551; 71010; 80048; 80053; 81003; 81015; 83605; 83690; 83735; 83880; 84484; 85025; 85610; 85730; 86140; 87077; 87086; 87186; 95819; A9270-GY; J0360; J0696; J1100